=== PATIENT | male | born 1930 | race Caucasian/White ===

== ENCOUNTER 2017-03-14 19:24 | Emergency (ER) | payer OTHER ==
[~2017-03-14] VITALS: Ht 182.9 cm; Wt 115.0 kg
[~2017-03-14 19:24] MED LIST: ALFU10TA2 PO; AMB10 PO; ASCO1TAB3 PO; CETI10TA84 PO; CHLO10CA7 PO; CLOP1TAB15 PO; FLNIN NAE; ISR/30 PO; KENALOG; METO25TA3 OR; NXM/40 PO; PERCOCET 5-325M1 TAB PO; POTASSIUM CHLO PO; SYN50 PO
[2017-03-14 19:44] VITALS: TEMP 36.6; Ht 182.9 cm; Wt 115.0 kg
--- NOTE | 2017-03-14 20:09 | EMERGENCY ROOM VISIT NOTE ---
History Report prepared by Eric: Fawad Orourke Under the Supervision of: Dr. Simone Riddle M.D. First contact with patient: 19:52 Chief Complaint: URINARY SYMPTOMS Stated Complaint: INCONTINENT, GROIN PAIN, BURNING Nursing Triage Summary: patient presents with c/o urinary burning, retention, and frequency for past couple days. denies fevers . History of Present Illness The patient is an 86 year old male who presents to the Emergency Room with persistent urinary retention for the past five days. The patient has experienced occasionally dribbling of urine, with which he has experienced some burning. He denies any fevers. The patient has had a Fraser catheter before. The patient cannot recall ever seeing a Urologist. He takes Uroxatral for BPH. The patient is s/p cholecystectomy performed by Dr. Willett (General Surgeon) in [place]. Source of History: patient Onset: five days ago Position: other (urinary) Quality: other (retention) Timing: other (persistent) Associated Symptoms: + urinary symptoms (burning), No fevers Review of Systems See HPI for pertinent positives & negatives. A total of 10 systems reviewed and were otherwise negative. Past Medical & Surgical Medical Problems: (1) BPH (benign prostatic hyperplasia) Family History No pertinent family history Social History Smoking Status: Never Smoker Occupation Status: retired Current/Historical Medications Scheduled Alfuzosin HCl (Uroxatral), 10 MG PO DAILY Ascorbic Acid (Vitamin C), 1 TAB PO DAILY Cetirizine (Zyrtec), 1 TAB PO DAILY Chlordiazepoxide (Librium), 5 MG PO TID Ciprofloxacin Hcl (Cipro), 1 TAB PO BID Clopidogrel (Plavix), 75 MG PO DAILY Esomeprazole Magnesium (Nexium), 40 MG PO DAILY Glipizide (Glipizide), 10 MG PO BID Isosorbide Mononitrate (Isosorbide Mononitrate ER), 30 MG PO DAILY Levothyroxine Sodium (Levothyroxine Sodium), 150 MCG PO DAILY Metoprolol Tartrate (Lopressor) (Lopressor), 25 MG PO BID Multiple Vitamins W/ Minerals (Centrum Silver 50+Men), 1 TAB PO DAILY Olmesartan/Hctz (Benicar Hct 20/12.5), 1 TAB PO DAILY Rosuvastatin Calcium (Crestor), 1 TAB PO DAILY Sertraline (Zoloft), 100 MG PO DAILY Sitagliptin Phosphate (Januvia), 100 MG PO DAILY Sucralfate (Carafate), 1 GM PO TID Allergies Coded Allergies: Aspirin (Verified Adverse Reaction, SENSITIVE STOMACH, 12/25/09) No Known Allergies (Verified , 12/25/09) Physical Exam Vital Signs Date Time Temp Pulse Resp B/P (MAP) Pulse Ox O2 Delivery O2 Flow Rate FiO2 03/14/17 22:32 78 20 142/70 98 03/14/17 21:33 61 20 169/83 96 Room Air 03/14/17 19:44 36.6 65 20 144/86 97 Room Air Physical Exam GENERAL: Patient is a healthy-appearing well-nourished male. HEAD: Normocephalic atraumatic EYES: Ocular movements intact pupils equal and react to light OROPHARYNX mucous membranes are moist no exudates present no erythema or edema present NECK: Supple no nuchal rigidity CHEST: Good equal expansion LUNGS: Clear and equal to auscultation CARDIAC: Normal S1 and S2 ABDOMEN: Soft, no guarding. Tender in the suprapubic area. BACK: No CVA tenderness EXTREMITIES: No pain upon palpation normal muscle strength in all groups no clubbing cyanosis or edema NEURO: Patient is following commands and answering questions appropriately. Alert and oriented x3 Cranial Nerves 2-12 grossly intact. Medical Decision & Procedures Laboratory Results Test 03/14/17 20:26 03/14/17 22:33 Urine Color DK YELLOW Urine Appearance CLEAR (CLEAR) Urine pH 5.5 (4.5-7.5) Urine Specific [place] 1.019 (1.000-1.030) Urine Protein NEG (NEG) Urine Glucose (UA) NEG (NEG) Urine Ketones TRACE (NEG) Urine Occult Blood NEG (NEG) Urine Nitrite NEG (NEG) Urine Bilirubin NEG (NEG) Urine Urobilinogen NEG (NEG) Urine Leukocyte Esterase TRACE (NEG) Urine WBC (Auto) 1-5 /hpf (0-5) Urine RBC (Auto) 5-10 /hpf (0-4) Urine Hyaline Casts (Auto) 1-5 /lpf (0-5) Urine Epithelial Cells (Auto) 10-20 /lpf (0-5) Urine Bacteria (Auto) NEG (NEG) Bedside Glucose 98 mg/dl (70-99) Labs reviewed by ED physician. Medications Administered Medications (Trade) Dose Ordered Sig/Sulema Route Start Time Stop Time Status Last Admin Dose Admin Ciprofloxacin (Cipro Tab) 500 mg NOW STAT PO 03/14/17 21:40 03/14/17 21:42 DC 03/14/17 22:31 500 MG ED Course 1954: Past medical records reviewed. The patient was evaluated in room C4. A complete history and physical examination was performed. 2134: Reassessed the patient. Discussed the results and discharge instructions with him. He verbalized understanding. The patient is ready for discharge. 2139: Cipro 500 mg PO. Medical Decision There is no differential diagnosis at this time. Blood Pressure Screening: Patient was found to have an elevated blood pressure and was referred to their primary care doctor for recheck and further treatment Medication Reconciliation: I attest that I have personally reviewed the patient' s current medication list This is an 86-year-old male who presents to the emergency department with inability to urinate. At home the patient became incontinent and moved a large amount of urine however he is unable to empty his bladder here. A bladder scan was performed and a Fraser catheter placed. The patient is early on medication for his prostate. I will place him on Cipro pending urine culture results. The patient will be discharged with the Fraser in place for follow-up with urology. Patient and family were in agreement with the treatment plan. Impression Primary Impression: Symptoms of urinary tract infection Scribe Attestation The scribe's documentation has been prepared under my direction and personally reviewed by me in its entirety. I confirm that the note above accurately reflects all work, treatment, procedures, and medical decision making performed by me. Departure Information Dispostion Home / Self-Care Prescriptions Ciprofloxacin Hcl (CIPRO) 500 Mg Tab 1 TAB PO BID for 10 Days, #20 TAB Prov: Simone Riddle MD 03/14/17 Referrals Will Barber M.D., Christopher T. M.D. Forms HOME CARE DOCUMENTATION FORM, IMPORTANT VISIT INFORMATION, School Instructions, Work Instructions Patient Instructions ED Catheter Care Fraser, ED Retention Urinary Male, Hypertension Control, Leg Bag Care Nm, My [facility] Additional Instructions Follow up with DR Willett's office You were found to have an elevated blood pressure today (>120 sytolic or >90 diastolic). Per medicare guidelines, you need to follow up with this blood pressure screening with your Primary Care Physician (PCP). For a new PCP call [phone]. Culture results are usually available in approx 48 hours You have been examined and treated today on an emergency basis only. This is not a substitute for, or an effort to provide, complete comprehensive medical care. It is impossible to recognize and treat all injuries or illnesses in a single emergency department visit. It is therefore important that you follow up closely with Dr Barber. Call as soon as possible for an appointment. Thank you for your time and consideration. I look forward to speaking with you again soon. Please don't hesitate to call us if you have any questions.
[2017-03-14 20:42] LABS: URINE APPEARANCE CLEAR (CLEAR); URINE BILIRUBIN NEG (NEG); URINE COLOR DK YELLOW; URINE NITRITE NEG (NEG); URINE PH 5.5 (4.5-7.5); URINE SPECIFIC GRAVITY 1.019 (1.000-1.030); UROBILINOGEN NEG (NEG); ZZURINE CULT IF INDIC CATH NO
[2017-03-14 20:57] LABS: MANUAL MICROSCOPIC REQUIRED? NO; REVIEW REQ? NO
[2017-03-14] MEDS ORDERED: LEVO150T9 PO (21:20)
[2017-03-14] MEDS ORDERED: SERT-234 PO (21:20)
[2017-03-14] MEDS ORDERED: BNC/20125 PO (21:20)
[2017-03-14] MEDS ORDERED: CETI10TA84 PO (21:20)
[2017-03-14] MEDS ORDERED: MULT-1093 PO (21:20)
[2017-03-14] MEDS ORDERED: CRS/10 PO (21:20)
[2017-03-14] MEDS ORDERED: GLIP10TA10 PO (21:20)
[2017-03-14] MEDS ORDERED: IMDSR30 PO (21:20)
[2017-03-14] MEDS ORDERED: NXM/40 PO (21:20)
[2017-03-14] MEDS ORDERED: SUCR1TAB29 PO (21:20)
[2017-03-14] MEDS ORDERED: METO50TA16 PO (21:20)
[2017-03-14] MEDS ORDERED: CHLO5CAP19 PO (21:20)
[2017-03-14] MEDS ORDERED: ALFU1TAB37 PO (21:20)
[2017-03-14] MEDS ORDERED: ASCA500 PO (21:20)
[2017-03-14] MEDS ORDERED: CLOP1TAB15 PO (21:20)
[2017-03-14] MEDS ORDERED: SITA100T3 PO (21:20)
[2017-03-14] MEDS ORDERED: CIPROFLOXACIN 500 MG TAB PO STA (21:40)
[2017-03-14] MEDS ORDERED: CIPR-255 PO (21:42)
[2017-03-14 22:32] VITALS: BP 142/70; PULSE 78; O2SAT 98
[2017-04-01] MEDS ORDERED: PRT40 PO (08:14)
[2017-04-01] MEDS ORDERED: KFL500 PO (08:14)
== END 2017-03-14 22:40 | disposition home or self-care (01) ==
LOC: C.EDB 19:26 → C.EDC 22:40
DX: R33.9 Retention of urine, unspecified (principal); R30.0 Dysuria; N40.0 Benign prostatic hyperplasia without lower urinary tract symptoms

== ENCOUNTER → 2017-03-16 | Outpatient (CLI) | payer OTHER ==
[~2017-03-16] MED LIST changes: -ALFU10TA2 PO; +ALFU1TAB37 PO; -AMB10 PO; +ASCA500 PO; -ASCO1TAB3 PO; +BNC/20125 PO; -CHLO10CA7 PO; +CHLO5CAP19 PO; +CIPR-255 PO; +CRS/10 PO; -FLNIN NAE; +GLIP10TA10 PO; +IMDSR30 PO; -ISR/30 PO; -KENALOG; +KFL500 PO; +LEVO150T9 PO; -METO25TA3 OR; +METO50TA16 PO; +MULT-1093 PO; +NYSCR30 EXT; -PERCOCET 5-325M1 TAB PO; -POTASSIUM CHLO PO; +PRT40 PO; +ROSU5TAB9 PO; +SERT-234 PO; +SITA100T3 PO; +SUCR1TAB29 PO; -SYN50 PO
== END | disposition home or self-care (01) ==
LOC: C.LABSPEC 17:06
PROVIDERS: ATTEND Nurse Practitioner Adult Health
DX: R33.9 Retention of urine, unspecified (principal)

== ENCOUNTER → 2017-03-18 | Outpatient (CLI) | payer OTHER ==
[2017-03-18 13:59] LABS: BLOOD UREA NITROGEN 24 mg/dl (7-18); BUN/CREATININE RATIO 15.1 (10-20)
== END | disposition home or self-care (01) ==
LOC: C.LABPBG 07:58
PROVIDERS: ATTEND Internal Medicine Pulmonary Disease
DX: R33.9 Retention of urine, unspecified (principal); E11.9 Type 2 diabetes mellitus without complications; R31.0 Gross hematuria

== ENCOUNTER 2017-03-23 12:09 | Inpatient (IN) | payer OTHER ==
[~2017-03-23] VITALS: Ht 182.9 cm; Wt 114.5 kg
[~2017-03-23 12:09] MED LIST changes: -KFL500 PO; -NYSCR30 EXT; -PRT40 PO; -ROSU5TAB9 PO
[2017-03-23] MEDS ORDERED: SODIUM CHLORIDE 0.9% 500ML 500 ML IV STA (12:46)
[2017-03-23 13:09] LABS: BASO % 0.1 %; BASO ABS # 0.02 K/uL (0-0.2); COMPLETE YES; EOS % 0.3 %; HEMATOCRIT 37.6 % (42-52); IG% 0.9 %; LYMPH % 5.2 %; LYMPH ABS # 0.81 K/uL (1.2-3.4); MEAN CELL VOLUME 87.6 fL (80-100); MEAN CORPUSCULAR HEMOGLOBIN 31.2 pg (25-34); MEAN CORPUSCULAR HGB CONC 35.6 g/dl (32-36); MEAN PLATELET VOLUME 9.2 fL (7.4-10.4); MONO % 12.8 %; NEUT % 80.7 %; PLATELET COUNT 246 K/uL (130-400); RED BLOOD COUNT 4.29 M/uL (4.7-6.1); WHITE BLOOD COUNT 15.71 K/uL (4.8-10.8)
--- NOTE | 2017-03-23 13:09 | DIAGNOSTIC IMAGING REPORT ---
SINGLE VIEW CHEST CLINICAL HISTORY: Stroke. FINDINGS: An AP, portable, upright chest radiograph is compared to study dated 12/12/2009. The examination is degraded by portable technique, large body habitus, and patient rotation. The heart is mildly enlarged and there is atherosclerotic calcification of the thoracic aorta. The pulmonary vasculature is noncongested. Chronic interstitial thickening is similar to previous. The lungs and pleural spaces are clear. No pneumothorax is seen. The skeletal structures are osteopenic. Degenerative change is noted throughout the thoracic spine. IMPRESSION: Cardiomegaly with no acute cardiopulmonary abnormality. Electronically signed by: Pasquale Sewell M.D. 03/23/2017 1:07 PM Dictated Date/Time: 03/23/2017 1:06 PM
[2017-03-23 13:16] LABS: BLOOD UREA NITROGEN 26 mg/dl (7-18); BUN/CREATININE RATIO 13.1 (10-20); CALCIUM 9.7 mg/dl (8.5-10.1); CARBON DIOXIDE 25 mmol/L (21-32); CHLORIDE 96 mmol/L (98-107); GLUCOSE 165 mg/dl (70-99); MAGNESIUM 1.8 mg/dl (1.8-2.4); POTASSIUM 3.5 mmol/L (3.5-5.1); SODIUM 131 mmol/L (136-145)
[2017-03-23 13:27] LABS: CKMB/CK RATIO 0.5 (0-3.0); THYROID STIMULATING HORMONE 0.547 uIu/ml (0.300-4.500)
[2017-03-23 13:28] LABS: INR 1.1 (0.9-1.1); PARTIAL THROMBOPLASTIN RATIO 1.3
[2017-03-23 13:49] LABS: MANUAL MICROSCOPIC REQUIRED? YES; URINE APPEARANCE CLOUDY (CLEAR); URINE BILIRUBIN NEG (NEG); URINE COLOR AMBER; URINE NITRITE NEG (NEG); URINE SPECIFIC GRAVITY 1.025 (1.000-1.030); UROBILINOGEN NEG (NEG)
--- NOTE | 2017-03-23 13:58 | DIAGNOSTIC IMAGING REPORT ---
CERVICAL SPINE CT CT DOSE: 1137.00 mGycm HISTORY: Trauma. Pain. FALL, PAIN TECHNIQUE: Multiaxial CT images of the cervical spine were performed and reformatted in the sagittal and coronal plane without the use of contrast. COMPARISON: None. FINDINGS: Vertebral body stature is remarkable for several mild concavities of the vertebral endplates. These are considered old radiographically. There is significant degenerative disc change throughout the entire entire cervical region. Posterior elements are intact. There are moderate degenerative changes of the lateral facets throughout. C1-C2 complex is intact. There are degenerative changes in the anterior arch the C1-C2 articulation. IMPRESSION: Degenerative change. No acute process. Electronically signed by: Jun Arevalo M.D. 03/23/2017 1:57 PM Dictated Date/Time: 03/23/2017 1:54 PM
--- NOTE | 2017-03-23 14:02 | DIAGNOSTIC IMAGING REPORT ---
HEAD WITHOUT CONTRAST (CT) CT DOSE: 720.95 mGycm HISTORY: Stroke TECHNIQUE: Multiple axial CT images of the head were obtained without contrast. Comparison: None. Findings: No acute intracranial hemorrhage, midline shift, mass, large territorial ischemia or abnormal extra-axial collection. There is moderate cerebral atrophy with a degree of ex vacuo ventriculomegaly. Patchy periventricular and deep white matter hypodensities are present with more focal areas of low-attenuation within the basal ganglia, notably the right lentiform nucleus. The calvarium is intact. The mastoid air cells, and middle ear cavities are clear. There is mild mucosal thickening of the ethmoid air cells. There has been prior bilateral cataract repair. Impression: 1. No acute intracranial abnormality. Negative for hemorrhage or large territorial ischemia. 2. Age-related changes of atrophy, chronic microvascular ischemic changes and remote appearing basal ganglia lacunar infarctions. 3. Mild ethmoid sinus disease. Electronically signed by: Rosendo Melendrez 03/23/2017 2:01 PM Dictated Date/Time: 03/23/2017 1:56 PM
[2017-03-23] MEDS ORDERED: PIPERACILLIN/TAZOBACTAM 4.5 GM/100ML D5W IV STA (14:11)
--- NOTE | 2017-03-23 14:14 | EMERGENCY ROOM VISIT NOTE ---
History Report prepared by Eric: Lakshmi Gonsalez Under the Supervision of: Dr. Pasquale Shaver M.D. First contact with patient: 12:35 Chief Complaint: STROKE SYMPTOMS Stated Complaint: FOOT DRAGGING, SLURRED SPEECH, CONFUSION, FALL History of Present Illness The patient is an 86 year old male who presents to the Emergency Room for further evaluation of stroke-like symptoms that started 1 week ago. The patient was seen in the ED 9 days ago for being unable to void. He had a catheter placed and he was started on antibiotics for a possible infection. He followed up with Dr. Willett - Urology today, just prior to coming into the ED. The patient's catheter was replaced today but it has not drained at all yet even though water was injected into his bladder. The patient's son states that since the patient had the catheter placed he has been experiencing worsening generalized weakness as well as worsening confusion. The patient is also dragging his feet and having difficulty ambulating which are both new for him. The patient's son states that the patient seems to drag his left foot more so than his right. The patient states that he is experiencing pain at the tip of his penis which his family explains is likely secondary to an infection or irritation from the catheter. Dr. Willett evaluated the patient and ordered some cream to improve the patient's pain from his penis. The patient is also complaining of back pain. The patient's son states that the patient has been experiencing night sweats and an increased cough. The patient's states that the patient did not sleep at all last night and kept trying to get out of bed. However, whenever he tried to get out of bed he would slide out of the bed onto the floor. They think that he is experiencing left arm pain secondary to falling out of bed. The patient has diabetes and his sugars have been high recently, per the patient's son. The patient's son adds that they are concerned about the patient's kidney function because it was abnormal recently. Source of History: patient, family (son), spouse/significant other () Onset: 1 week ago Position: other (global) Quality: other (stroke-like symptoms) Timing: worsening Associated Symptoms: + cough, + back pain, + weakness (generalized) Note: worsening confusion, high blood sugars, penis pain, night sweats, left arm pain Review of Systems See HPI for pertinent positives & negatives. A total of 10 systems reviewed and were otherwise negative. Past Medical & Surgical Medical Problems: (1) BPH (benign prostatic hyperplasia) (2) Weakness Family History No pertinent family history Social History Smoking Status: Never Smoker Occupation Status: retired Current/Historical Medications Scheduled Alfuzosin HCl (Uroxatral), 10 MG PO DAILY Ascorbic Acid (Vitamin C), 1 TAB PO DAILY Cetirizine (Zyrtec), 1 TAB PO DAILY Chlordiazepoxide (Librium), 5 MG PO TID Clopidogrel (Plavix), 75 MG PO DAILY Esomeprazole Magnesium (Nexium), 40 MG PO DAILY Glipizide (Glipizide), 10 MG PO BID Isosorbide Mononitrate (Isosorbide Mononitrate ER), 30 MG PO DAILY Levothyroxine Sodium (Levothyroxine Sodium), 150 MCG PO DAILY Metoprolol Tartrate (Lopressor) (Lopressor), 25 MG PO BID Multiple Vitamins W/ Minerals (Centrum Silver 50+Men), 1 TAB PO DAILY Olmesartan/Hctz (Benicar Hct 20/12.5), 1 TAB PO DAILY Rosuvastatin Calcium (Rosuvastatin Calcium), 5 MG PO DAILY Sertraline (Zoloft), 100 MG PO DAILY Sitagliptin Phosphate (Januvia), 100 MG PO DAILY Sucralfate (Carafate), 1 GM PO TID Allergies Coded Allergies: Aspirin (Verified Adverse Reaction, Unknown, SENSITIVE STOMACH, 03/16/17) No Known Allergies (Verified , 12/25/09) Physical Exam Vital Signs Date Time Temp Pulse Resp B/P (MAP) Pulse Ox O2 Delivery O2 Flow Rate FiO2 03/23/17 13:15 78 22 121/64 94 Room Air 03/23/17 13:15 94 Room Air 03/23/17 12:32 77 03/23/17 12:12 36.7 78 20 92/51 94 Room Air Physical Exam GENERAL: Patient is in no acute distress. HEENT: No acute trauma, normocephalic atraumatic, mucous membranes moist, no nasal congestion, no scleral icterus. NECK: No stridor, no adenopathy, no meningismus, trachea is midline. LUNGS: Clear to auscultation bilaterally, no wheeze, no rhonchi, breath sounds equal. HEART: Without murmurs gallops or rubs, regular rate and rhythm. ABDOMEN: Soft, nontender, bowel sounds positive, no hernias, no peritonitis. EXTREMITIES: No cyanosis or edema, full range of motion of all the joints without pain or difficulty, no signs for acute trauma. GROIN: Erythema to penial head, Fraser catheter in place. NEUROLOGIC: Awake and alert, no facial droop or extremity drifting, no speech slur. SKIN: No rash, no jaundice, no diaphoresis. Medical Decision & Procedures ER Provider Diagnostic Interpretation: Radiology results as stated below per my review and radiologist interpretation: SINGLE VIEW CHEST FINDINGS: An AP, portable, upright chest radiograph is compared to study dated 12/12/2009. The examination is degraded by portable technique, large body habitus, and patient rotation. The heart is mildly enlarged and there is atherosclerotic calcification of the thoracic aorta. The pulmonary vasculature is noncongested. Chronic interstitial thickening is similar to previous. The lungs and pleural spaces are clear. No pneumothorax is seen. The skeletal structures are osteopenic. Degenerative change is noted throughout the thoracic spine. IMPRESSION: Cardiomegaly with no acute cardiopulmonary abnormality. Electronically signed by: Pasquale Sewell M.D. 03/23/2017 1:07 PM Dictated Date/Time: 03/23/2017 1:06 PM LEFT HUMERUS MIN 2 VIEWS ROUTINE DISCUSSION: No acute fractures or dislocations are visualized. IMPRESSION: No fractures or dislocations identified. Electronically signed by: Brayan Gabriel M.D. 03/23/2017 2:41 PM Dictated Date/Time: 03/23/2017 2:40 PM LEFT HAND MIN 3 VIEWS ROUTINE, LEFT FOREARM 2 VIEWS ROUTINE FINDINGS: Left hand: No acute fracture, malalignment, or radiopaque internal foreign body. Intercarpal and radiocarpal articulations intact. Left forearm: Radiocarpal and elbow joints congruent. No acute fracture, malalignment, or radiopaque foreign body. IMPRESSION: 1. No acute osseous injury of the left hand or forearm. Electronically signed by: Joesph Muhammad 03/23/2017 2:44 PM Dictated Date/Time: 03/23/2017 2:40 PM HEAD WITHOUT CONTRAST (CT) Findings: No acute intracranial hemorrhage, midline shift, mass, large territorial ischemia or abnormal extra-axial collection. There is moderate cerebral atrophy with a degree of ex vacuo ventriculomegaly. Patchy periventricular and deep white matter hypodensities are present with more focal areas of low-attenuation within the basal ganglia, notably the right lentiform nucleus. The calvarium is intact. The mastoid air cells, and middle ear cavities are clear. There is mild mucosal thickening of the ethmoid air cells. There has been prior bilateral cataract repair. Impression: 1. No acute intracranial abnormality. Negative for hemorrhage or large territorial ischemia. 2. Age-related changes of atrophy, chronic microvascular ischemic changes and remote appearing basal ganglia lacunar infarctions. 3. Mild ethmoid sinus disease. Electronically signed by: Rosendo Melendrez 03/23/2017 2:01 PM Dictated Date/Time: 03/23/2017 1:[address] FINDINGS: Vertebral body stature is remarkable for several mild concavities of the vertebral endplates. These are considered old radiographically. There is significant degenerative disc change throughout the entire entire cervical region. Posterior elements are intact. There are moderate degenerative changes of the lateral facets throughout. C1-C2 complex is intact. There are degenerative changes in the anterior arch the C1-C2 articulation. IMPRESSION: Degenerative change. No acute process. Electronically signed by: Jun Arevalo M.D. 03/23/2017 1:57 PM Dictated Date/Time: 03/23/2017 1:54 PM Laboratory Results 03/23/17 12:30 Red Blood Count 4.29, Mean Corpuscular Volume 87.6, Mean Corpuscular Hemoglobin 31.2, Mean Corpuscular Hemoglobin Concent 35.6, Mean Platelet Volume 9.2, Neutrophils (%) (Auto) 80.7, Lymphocytes (%) (Auto) 5.2, Monocytes (%) (Auto) 12.8, Eosinophils (%) (Auto) 0.3, Basophils (%) (Auto) 0.1, Neutrophils # (Auto ) 12.69, Lymphocytes # (Auto) 0.81, Monocytes # (Auto) 2.01, Eosinophils # (Auto ) 0.04, Basophils # (Auto) 0.02 03/23/17 12:30 Test 03/23/17 12:30 03/23/17 13:07 03/23/17 13:11 03/23/17 13:20 White Blood Count 15.71 K/uL (4.8-10.8) Red Blood Count 4.29 M/uL (4.7-6.1) Hemoglobin 13.4 g/dL (14.0-18.0) Hematocrit 37.6 % (42-52) Mean Corpuscular Volume 87.6 fL (80-100) Mean Corpuscular Hemoglobin 31.2 pg (25-34) Mean Corpuscular Hemoglobin Concent 35.6 g/dl (32-36) Platelet Count 246 K/uL (130-400) Mean Platelet Volume 9.2 fL (7.4-10.4) Neutrophils (%) (Auto) 80.7 % Lymphocytes (%) (Auto) 5.2 % Monocytes (%) (Auto) 12.8 % Eosinophils (%) (Auto) 0.3 % Basophils (%) (Auto) 0.1 % Neutrophils # (Auto) 12.69 K/uL (1.4-6.5) Lymphocytes # (Auto) 0.81 K/uL (1.2-3.4) Monocytes # (Auto) 2.01 K/uL (0.11-0.59) Eosinophils # (Auto) 0.04 K/uL (0-0.5) Basophils # (Auto) 0.02 K/uL (0-0.2) RDW Standard Deviation 38.9 fL (36.4-46.3) RDW Coefficient of Variation 12.1 % (11.5-14.5) Immature Granulocyte % (Auto) 0.9 % Immature Granulocyte # (Auto) 0.14 K/uL (0.00-0.02) Prothrombin Time 12.0 SECONDS (9.0-12.0) Prothromb Time International Ratio 1.1 (0.9-1.1) Activated Partial Thromboplast Time 33.1 SECONDS (21.0-31.0) Partial Thromboplastin Ratio 1.3 Anion Gap 10.0 mmol/L (3-11) Estimated GFR () 34.3 Estimated GFR (Non- 29.6 BUN/Creatinine Ratio 13.1 (10-20) Calcium Level 9.7 mg/dl (8.5-10.1) Magnesium Level 1.8 mg/dl (1.8-2.4) Total Creatine Kinase 131 U/L (39-308) Creatine Kinase MB 0.7 ng/ml (0.5-3.6) Creatine Kinase MB Ratio 0.5 (0-3.0) Troponin I < 0.015 ng/ml (0-0.045) Thyroid Stimulating Hormone (TSH) 0.547 uIu/ml (0.300-4.500) Free Thyroxine 1.36 ng/dl (0.80-1.60) Bedside Prothrombin Time INR 1.1 (0.9-1.1) Bedside Glucose 185 mg/dl (70-99) Lactic Acid Level 1.2 mmol/L (0.4-2.0) Urine Color KEN Urine Appearance CLOUDY (CLEAR) Urine pH 5.0 (4.5-7.5) Urine Specific [place] 1.025 (1.000-1.030) Urine Protein 3+ (NEG) Urine Glucose (UA) NEG (NEG) Urine Ketones TRACE (NEG) Urine Occult Blood 3+ (NEG) Urine Nitrite NEG (NEG) Urine Bilirubin NEG (NEG) Urine Urobilinogen NEG (NEG) Urine Leukocyte Esterase NEG (NEG) Urine RBC >30 /hpf (0-4) Urine WBC 1-5 /hpf (0-5) Urine Epithelial Cells 5-10 /lpf (0-5) Urine Calcium Oxalate Crystals PRESENT (NONE PRSENT) Urine Bacteria 1+ (NEG) Urine Hyaline Casts 5-10 /lpf (0-5) Urine Granular Casts 0-3 /lpf (0) Laboratory results reviewed by me. Medications Administered Medications (Trade) Dose Ordered Sig/Sulema Route Start Time Stop Time Status Last Admin Dose Admin Sodium Chloride 500 ml @ 999 mls/hr Q31M STAT IV 03/23/17 12:46 03/23/17 13:16 DC 03/23/17 13:10 999 MLS/HR Piperacillin Sod/ Tazobactam Sod (Zosyn Iv) 4.5 gm NOW STAT IV 03/23/17 14:11 03/23/17 14:13 DC 03/23/17 14:35 4.5 GM ECG Indication: weakness Rate (beats per minute): 77 Rhythm: sinus rhythm Findings: 1st degree AV block, no acute ischemic change, no ectopy ED Course 1240: The patient was evaluated in room B9. A complete history and physical exam was performed. 1246: Ordered Sodium Chloride 500 ml @ 999 mls/hr IV 1411: Ordered Zosyn 4.5 gm IV 1438: Discussed the patient's case with Dr. Smith of the [facility]. The patient will be evaluated for further management. 1439: Upon reexamination the patient is resting comfortably. I discussed results and treatment plan with the patient and his family. They verbalize agreement and understanding. The patient will be evaluated for further management. Medical Decision Differential diagnoses considered include dehydration, infection, UTI, pneumonia , stroke, fracture, electrolyte imbalance, anemia, MD. Medication Reconciliation: I attest that I have personally reviewed the patient' s current medication list. Blood Pressure Screening: Patient was found to have normal blood pressure on screening and does not require follow-up. There is a moderate leukocytosis, this is consistent with infection, no worrisome anemia. Renal panel testing suggests acute renal failure, no significant electrolyte abnormality requiring correction. There was no hepatitis. EKG showed a sinus rhythm, no acute ischemia. Cardiac enzyme testing times one is not consistent with acute cardiac injury. Chest x-ray does not show pneumonia or CHF. Brain CT shows no acute bleed or mass effect. C-spine CT shows no acute fracture. Left humerus, left forearm and left hand films do not show evidence for fracture. Urinalysis is suggestive of infection , urine culture and blood cultures are pending. The patient received IV saline, this seems to have improved his blood pressure. He was given IV Zosyn for antibiotic coverage. The patient presents with confusion, weakness, he has not done well since placement of his Fraser catheter. I do think he may have a urinary tract infection, this could be causing his difficulty. I don't find evidence for stroke by examination. The patient requires a stay in the hospital. I did speak to the patient and his family. The on-call hospitalist was consulted. Consults Time Called: 1431 Consulting Physician: Dr. Smith - [facility] [place] Returned Call: 1438 Discussed the patient's case with Dr. Smith of the [facility]. The patient will be evaluated for further management. Impression Primary Impression: Change in mental status Additional Impressions: Hypotension UTI (urinary tract infection) Scribe Attestation The scribe's documentation has been prepared under my direction and personally reviewed by me in its entirety. I confirm that the note above accurately reflects all work, treatment, procedures, and medical decision making performed by me. Departure Information Dispostion Being Evaluated By Hospitalist Referrals Will Barber M.D. (PCP) Patient Instructions My [facility] Health Problem Qualifiers Primary Impression: Change in mental status Altered mental status type: unspecified Qualified Codes: R41.82 - Altered mental status, unspecified Additional Impressions: Hypotension Hypotension type: unspecified hypotension type Qualified Codes: I95.9 - Hypotension, unspecified UTI (urinary tract infection) Urinary tract infection type: catheter-associated UTI Indwelling urinary catheter type: unspecified Encounter type: initial encounter Qualified Codes : T83.511A - Infection and inflammatory reaction due to indwelling urethral catheter, initial encounter; N39.0 - Urinary tract infection, site not specified
[2017-03-23 14:21] LABS: REVIEW REQ? NO
[2017-03-23 14:23] LABS: URINE RBC >30 /hpf (0-4)
[2017-03-23 14:25] LABS: URINE BACTERIA 1+ (NEG)
[2017-03-23 14:26] LABS: URINE GRANULAR CAST 0-3 /lpf (0)
[2017-03-23 14:27] LABS: ZZURINE CULT IF INDIC CATH YES
--- NOTE | 2017-03-23 14:42 | DIAGNOSTIC IMAGING REPORT ---
LEFT HUMERUS MIN 2 VIEWS ROUTINE CLINICAL HISTORY: Left humeral pain status post trauma COMPARISON: None. DISCUSSION: No acute fractures or dislocations are visualized. IMPRESSION: No fractures or dislocations identified. Electronically signed by: Brayan Gabriel M.D. 03/23/2017 2:41 PM Dictated Date/Time: 03/23/2017 2:40 PM
--- NOTE | 2017-03-23 14:45 | DIAGNOSTIC IMAGING REPORT ---
LEFT HAND MIN 3 VIEWS ROUTINE, LEFT FOREARM 2 VIEWS ROUTINE CLINICAL HISTORY: 86 year-old Male presenting with FALL, PAIN. TECHNIQUE: Frontal, oblique, and lateral views of the left hand and frontal and lateral views of the left forearm were obtained. COMPARISON: None. FINDINGS: Left hand: No acute fracture, malalignment, or radiopaque internal foreign body. Intercarpal and radiocarpal articulations intact. Left forearm: Radiocarpal and elbow joints congruent. No acute fracture, malalignment, or radiopaque foreign body. IMPRESSION: 1. No acute osseous injury of the left hand or forearm. Electronically signed by: Joesph Muhammad 03/23/2017 2:44 PM Dictated Date/Time: 03/23/2017 2:40 PM
[2017-03-23] MEDS ORDERED: ALUMINUM/MAGNESIUM/SIMETH (MAALOX MAX) 30 ML UDC PO PRN (15:45)
[2017-03-23] MEDS ORDERED: ONDANSETRON INJ 2 MG/ML 2 ML VIAL IV PRN (15:45)
[2017-03-23] MEDS ORDERED: MAGNESIUM HYDROXIDE SUSP 30 ML UDC PO PRN (15:45)
[2017-03-23] MEDS ORDERED: POLYETHYLENE (MIRALAX) 17 GM PACK PO PRN (15:45)
[2017-03-23] MEDS ORDERED: ROSU5TAB9 PO (15:47)
[2017-03-23] MEDS ORDERED: NYSCR30 EXT (15:53)
[2017-03-23] MEDS ORDERED: GLUCOSE 10 TABS/TUBE PO PRN (16:00)
[2017-03-23] MEDS ORDERED: GLUCOSE 40% GEL 15 GM TUBE PO PRN (16:00)
[2017-03-23] MEDS ORDERED: DEXTROSE 50% 50 ML SYR IV PRN (16:00)
[2017-03-23] MEDS ORDERED: GLUCAGON FOR INJ 1 MG VIAL SQ PRN (16:00)
[2017-03-23] MEDS ORDERED: PHARMACIST DISCHARGE MED REC CONSULT PRN (16:15)
[2017-03-23 17:24] VITALS: BP 147/76; PULSE 69; TEMP 36.6; O2SAT 95
[2017-03-23] MEDS: INSULIN ASPART 100 UNITS/ML 3 ML PEN SC SCH ×2 (17:25→20:45)
[2017-03-23] MEDS: NSS + 20MEQ KCL 1000ML 1,000 ML IV SCH (17:53)
[2017-03-23] MEDS: CEFTRIAXONE SOD INJ 1 GM in DEXTROSE 5% ADD-VANTAGE 50ML 50 ML IV SCH (17:55)
[2017-03-23 17:58] VITALS: BP 147/76; PULSE 69; TEMP 36.6; Ht 182.9 cm; Wt 114.5 kg
[2017-03-23] MEDS: NYSTATIN SUSP 500,000 U/5 ML UDC PO SCH ×2 (18:49→20:42)
[2017-03-23 19:48] VITALS: BP 171/83
[2017-03-23 20:05] VITALS: BP 171/83; PULSE 77; TEMP 36.7; O2SAT 95
--- NOTE | 2017-03-23 20:15 | History and Physical ---
History & Physical Date & Time of Service: Mar 23, 2017 at 19:13 Chief Complaint: Weakness Primary Care Physician: Will Barber M.D. History of Present Illness Source: patient, spouse, clinic records, hospital records This is an 86 y/o male with a history of DM II, HTN, CKD stage III, hypothyroidism, BPH, anxiety and depression, and PUD who presented to the ED on 03/23 with weakness, confusion, and pain in the penis. The patient had presented to the ED about 9 days ago with urinary retention, at which time a catheter was placed and he was given antibiotics. The patient followed up with Dr. Willett today where the catheter was replaced. The patient has been complaining of a 9/ 10 burning pain in the tip of his penis since the first catheter was placed. Patient was prescribed nystatin cream to apply to affected area today; however, the patient was not able to fill this prescription before coming to the ED. Patient's family notes that he has been having worsening weakness and confusion over the last week. The weakness seems to favor his left side. The notes that the patient has been having difficulty complaining and seems to be dragging his feet, which is new. She also notes that when he has been trying to get out of bed, he has been rolling onto the floor instead, falling on his left side. Patient has been having night sweats and a cough over the last week. The patient denies fevers, chills, chest pain, palpitations, claudication , wheezing, shortness of breath, nausea, vomiting, abdominal pain, dysuria, hematuria, urinary retention, paralysis, numbness and tingling. Past Medical/Surgical History Medical Problems: (1) BPH (benign prostatic hyperplasia) Status: Chronic DM II HTN CKD stage III Hypothyroidism Anxiety and depression PUD Family History Diabetes mellitus Hypertension Social History Smoking Status: Never Smoker Smokeless Tobacco Use: No Alcohol Use: none Drug Use: none Marital Status: Housing status: lives with significant other Occupational Status: retired Immunizations History of Influenza Vaccine: No History of Tetanus Vaccine?: No History of Pneumococcal: No History of Hepatitis B Vaccine: Unknown Multi-Drug Resistant Organisms History of MDRO: No Allergies Coded Allergies: Aspirin (Verified Adverse Reaction, Unknown, SENSITIVE STOMACH, 03/16/17) No Known Allergies (Verified , 12/25/09) Home Medications Scheduled Alfuzosin HCl (Uroxatral), 10 MG PO DAILY Ascorbic Acid (Vitamin C), 1 TAB PO DAILY Cetirizine (Zyrtec), 1 TAB PO DAILY Chlordiazepoxide (Librium), 5 MG PO TID Clopidogrel (Plavix), 75 MG PO DAILY Esomeprazole Magnesium (Nexium), 40 MG PO DAILY Glipizide (Glipizide), 10 MG PO BID Isosorbide Mononitrate (Isosorbide Mononitrate ER), 30 MG PO DAILY Levothyroxine Sodium (Levothyroxine Sodium), 150 MCG PO DAILY Metoprolol Tartrate (Lopressor) (Lopressor), 25 MG PO BID Multiple Vitamins W/ Minerals (Centrum Silver 50+Men), 1 TAB PO DAILY Nystatin (Nystatin Cream), 1 APPLN EXT BID Olmesartan/Hctz (Benicar Hct 20/12.5), 1 TAB PO DAILY Rosuvastatin Calcium (Rosuvastatin Calcium), 5 MG PO DAILY Sertraline (Zoloft), 100 MG PO DAILY Sitagliptin Phosphate (Januvia), 100 MG PO DAILY Sucralfate (Carafate), 1 GM PO TID Review of Systems Constitutional: + weakness, + fatigue, No fever, No chills, No sweats Eyes: No worsening of vision, No eye pain, No diplopia ENT: + trouble swallowing (odynophagia), No hearing loss, No sore throat Respiratory: No cough, No wheezing, No shortness of breath Cardiovascular: No chest pain, No claudication, No palpitations Abdomen: No pain, No nausea, No vomiting Musculoskeletal: No joint pain, No muscle pain, No swelling Genitourinary - Male: + urinary retention (catheter in place), + problem reported (penile pain), No hematuria Neurologic: + weakness (left side), + problem reported (confusion), No paralysis, No numbness/tingling Integumentary: No rash, No itch, No color change Physical Exam Vital Signs Date Time Temp Pulse Resp B/P (MAP) Pulse Ox O2 Delivery O2 Flow Rate FiO2 03/23/17 17:58 36.6 69 18 147/76 Room Air 03/23/17 17:24 36.6 69 18 147/76 (99) 95 Room Air 03/23/17 16:41 75 21 166/88 95 Room Air 03/23/17 15:00 36.9 72 161/68 95 Room Air 03/23/17 13:15 78 22 121/64 94 Room Air 03/23/17 13:15 94 Room Air 03/23/17 12:32 77 03/23/17 12:12 36.7 78 20 92/51 94 Room Air General appearance: +Obese. Well-developed, well-nourished, no apparent distress Head: Normocephalic, atraumatic Eyes: Normal inspection, PERRL, EOMI ENT: +Oral candidiasis. Normal ENT inspection, hearing grossly normal, pharynx normal Neck: Supple, no JVD, trachea midline Respiratory/Chest: Lungs clear to auscultation, normal breath sounds, no respiratory distress Cardiovascular: Regular rate & rhythm, no gallop, no murmur Abdomen/GI: +Hernia. Normal bowel sounds, non-tender, soft : +penis tip erythematous, TTP. Fraser in place. No drainage or penile lesions. Extremities/Musculoskeletal: Normal inspection, no calf tenderness, no pedal edema Neurological/Psych: +Disoriented x 2. Confused. LUE and LLE 4/5 strength, RUE and RLE 5/5. Sensation intact. Alert, normal mood/affect Skin: Normal color, warm/dry, no rash Diagnostics Laboratory Results Results Past 24 Hours Test 03/23/17 12:30 03/23/17 13:07 03/23/17 13:11 03/23/17 13:20 Range/Units White Blood Count 15.71 4.8-10.8 K/uL Red Blood Count 4.29 4.7-6.1 M/uL Hemoglobin 13.4 14.0-18.0 g/dL Hematocrit 37.6 42-52 % Mean Corpuscular Volume 87.6 80-100 fL Mean Corpuscular Hemoglobin 31.2 25-34 pg Mean Corpuscular Hemoglobin Concent 35.6 32-36 g/dl Platelet Count 246 130-400 K/uL Mean Platelet Volume 9.2 7.4-10.4 fL Neutrophils (%) (Auto) 80.7 % Lymphocytes (%) (Auto) 5.2 % Monocytes (%) (Auto) 12.8 % Eosinophils (%) (Auto) 0.3 % Basophils (%) (Auto) 0.1 % Neutrophils # (Auto) 12.69 1.4-6.5 K/uL Lymphocytes # (Auto) 0.81 1.2-3.4 K/uL Monocytes # (Auto) 2.01 0.11-0.59 K/uL Eosinophils # (Auto) 0.04 0-0.5 K/uL Basophils # (Auto) 0.02 0-0.2 K/uL RDW Standard Deviation 38.9 36.4-46.3 fL RDW Coefficient of Variation 12.1 11.5-14.5 % Immature Granulocyte % (Auto) 0.9 % Immature Granulocyte # (Auto) 0.14 0.00-0.02 K/uL Prothrombin Time 12.0 9.0-12.0 SECONDS Prothromb Time International Ratio 1.1 0.9-1.1 Activated Partial Thromboplast Time 33.1 21.0-31.0 SECONDS Partial Thromboplastin Ratio 1.3 Sodium Level 131 136-145 mmol/L Potassium Level 3.5 3.5-5.1 mmol/L Chloride Level 96 98-107 mmol/L Carbon Dioxide Level 25 21-32 mmol/L Anion Gap 10.0 3-11 mmol/L Blood Urea Nitrogen 26 7-18 mg/dl Creatinine 2.00 0.60-1.40 mg/dl Estimated GFR () 34.3 Estimated GFR (Non- 29.6 BUN/Creatinine Ratio 13.1 10-20 Random Glucose 165 70-99 mg/dl Calcium Level 9.7 8.5-10.1 mg/dl Magnesium Level 1.8 1.8-2.4 mg/dl Total Creatine Kinase 131 39-308 U/L Creatine Kinase MB 0.7 0.5-3.6 ng/ml Creatine Kinase MB Ratio 0.5 0-3.0 Troponin I < 0.015 0-0.045 ng/ml Thyroid Stimulating Hormone (TSH) 0.547 0.300-4.500 uIu/ml Free Thyroxine 1.36 0.80-1.60 ng/dl Bedside Prothrombin Time INR 1.1 0.9-1.1 Bedside Glucose 185 70-99 mg/dl Lactic Acid Level 1.2 0.4-2.0 mmol/L Urine Color KEN Urine Appearance CLOUDY CLEAR Urine pH 5.0 4.5-7.5 Urine Specific [place] 1.025 1.000-1.030 Urine Protein 3+ NEG Urine Glucose (UA) NEG NEG Urine Ketones TRACE NEG Urine Occult Blood 3+ NEG Urine Nitrite NEG NEG Urine Bilirubin NEG NEG Urine Urobilinogen NEG NEG Urine Leukocyte Esterase NEG NEG Urine RBC >30 0-4 /hpf Urine WBC 1-5 0-5 /hpf Urine Epithelial Cells 5-10 0-5 /lpf Urine Calcium Oxalate Crystals PRESENT NONE PRSENT Urine Bacteria 1+ NEG Urine Hyaline Casts 5-10 0-5 /lpf Urine Granular Casts 0-3 0 /lpf Test 03/23/17 17:06 Range/Units Bedside Glucose 164 70-99 mg/dl Microbiology Results 03/23/17 Blood Culture, Received Pending 03/23/17 Blood Culture, Received Pending 03/23/17 Urine Culture, Received Pending Diagnostic Radiology Reviewed the following studies and agree with interpretation as follows: Patient Name: REBECCA GELLER JR Unit Number: [id number] Dictated: 03/23/171355 Transcribed: 03/23/17 1356 JR Printed Date/Time: [~ rep prt dt]/[~ rep prt tm] [~ rep ct labl] - [~ rep ct ivnm] [facility] [address] [place] [address] Dictated: 03/23/171355 Transcribed: 03/23/17 135 JR Printed Date/Time: [~ rep prt dt]/[~ rep prt tm] [~ rep ct labl] - [~ rep ct ivnm] Patient: REBECCA GELLER Address1: [address] [facility] Rec: [id number] Address2: Acct ID: [id number] [facility] Zip: [place] [address] Date: 1930 Sex: M Room/Bed: Ref Phy: Will Barber M.D. SC: GATO Att Phy: Report #: [id number] Chrissy Phy: Will Barber M.D. Test: HWO Admit Phy: Dipper Operator: SALAZAR Interpreting Phy: Elton Melendrez D.O. Diagnosis: FOOT DRAGGING, SLURRED SPEECH, CONFUSION, FALL Ordering Phy: Pasquale Shaver M.D. Service Date: 03/23/17 Admit Date: 03/23/17 MNE: PWRSCRIBE CONF: DICTATED BY: Elton Melendrez D.O.]] CC: Pasquale Shaver M.D. Smeal, Darren M.D. Endcc: [~ rep ct add3]] HEAD WITHOUT CONTRAST (CT) CT DOSE: 720.95 mGycm HISTORY: Stroke TECHNIQUE: Multiple axial CT images of the head were obtained without contrast. Comparison: None. Findings: No acute intracranial hemorrhage, midline shift, mass, large territorial ischemia or abnormal extra-axial collection. There is moderate cerebral atrophy with a degree of ex vacuo ventriculomegaly. Patchy periventricular and deep white matter hypodensities are present with more focal areas of low-attenuation within the basal ganglia, notably the right lentiform nucleus. The calvarium is intact. The mastoid air cells, and middle ear cavities are clear. There is mild mucosal thickening of the ethmoid air cells. There has been prior bilateral cataract repair. Impression: 1. No acute intracranial abnormality. Negative for hemorrhage or large territorial ischemia. 2. Age-related changes of atrophy, chronic microvascular ischemic changes and remote appearing basal ganglia lacunar infarctions. 3. Mild ethmoid sinus disease. Electronically signed by: Rosendo Melendrez 03/23/2017 2:01 PM Dictated Date/Time: 03/23/2017 1:56 PM The status of this report is Signed. Draft = Not yet reviewed or approved by Radiologist. Signed = Reviewed and approved by Radiologist. <AttendingPhy></AttendingPhy> <FamilyPhy>Will Barber M.D.</FamilyPhy> < PrimaryPhy>Will Barber M.D.</PrimaryPhy> <UnitNumber>[id number]</UnitNumber> < VisitNumber>[id number]</VisitNumber> <PatientName>REBECCA GELLER JR</ PatientName> <DateOfBirth>1930</DateOfBirth> <Location>[facility]</Location> < ServiceDate>03/23/17</ServiceDate> <MNE>ESINDI</MNE> <OrderingPhy>Pasquale Shaver M.D.</OrderingPhy> <OrderingPhyMNE>f rep ord dr davies</OrderingPhyMNE> < DictatingPhyMNE>f rep dict dr davies</DictatingPhyMNE> <CCListMNE>f rep ct mne</ CCListMNE> <AdmittingPhyMNE>f pt admit dr davies</AdmittingPhyMNE> <AttendingPhyMNE >f pt attend dr davies</AttendingPhyMNE> <ConsultingPhyMNE>f pt consult dr davies</ConsultingPhyMNE> <FamilyPhyMNE>f pt fam dr davies</FamilyPhyMNE> <OtherPhyMNE>f pt other dr davies</OtherPhyMNE> < PrimaryPhyMNE>f pt prim care dr davies</PrimaryPhyMNE> <ReferringPhyMNE>f pt referring dr davies</ReferringPhyMNE> Patient Name: REBECCA GELLER Unit Number: [id number] Dictated: 03/23/171353 Transcribed: 03/23/17 135 MS Printed Date/Time: [~ rep prt dt]/[~ rep prt tm] [~ rep ct labl] - [~ rep ct ivnm] [facility] [address] Radiology Department [place] [id number] Dictated: 03/23/171353 Transcribed: 03/23/17 1354 MS Printed Date/Time: [~ rep prt dt]/[~ rep prt tm] [~ rep ct labl] - [~ rep ct ivnm] Patient: REBECCA GELLER Address1: [address] [facility] Rec: [id number] Address2: Acct ID: [id number] [facility] Zip: [place] [address] Date: 1930 Sex: M Room/Bed: Ref Phy: Will Barber M.D. SC: GATO Att Phy: Report #: [id number] Chrissy Phy: Will Barber M.D. Test: CSWO Admit Phy: Dipper Operator: SALAZAR Interpreting Phy: Jun Arevalo M.D. Diagnosis: FOOT DRAGGING, SLURRED SPEECH , CONFUSION, FALL Ordering Phy: Pasquale Shaver M.D. Service Date: 03/23/17 Admit Date: 03/23/17 MNE: KSENIA CONF: DICTATED BY: Jun Arevalo M.D.]] CC: Pasquale Shaver M.D. Smeal, Darren M.D. Endcc: [~ rep ct add3]] CERVICAL SPINE CT CT DOSE: 1137.00 mGycm HISTORY: Trauma. Pain. FALL, PAIN TECHNIQUE: Multiaxial CT images of the cervical spine were performed and reformatted in the sagittal and coronal plane without the use of contrast. COMPARISON: None. FINDINGS: Vertebral body stature is remarkable for several mild concavities of the vertebral endplates. These are considered old radiographically. There is significant degenerative disc change throughout the entire entire cervical region. Posterior elements are intact. There are moderate degenerative changes of the lateral facets throughout. C1-C2 complex is intact. There are degenerative changes in the anterior arch the C1-C2 articulation. IMPRESSION: Degenerative change. No acute process. Electronically signed by: Jun Arevalo M.D. 03/23/2017 1:57 PM Dictated Date/Time: 03/23/2017 1:54 PM The status of this report is Signed. Draft = Not yet reviewed or approved by Radiologist. Signed = Reviewed and approved by Radiologist. <AttendingPhy></AttendingPhy> <FamilyPhy>Will Barber M.D.</FamilyPhy> < PrimaryPhy>Will Barber M.D.</PrimaryPhy> <UnitNumber>[id number]</UnitNumber> < VisitNumber>[id number]</VisitNumber> <PatientName>REBECCA GELLER JR</ PatientName> <DateOfBirth>1930</DateOfBirth> <Location>[facility]</Location> < ServiceDate>03/23/17</ServiceDate> <MNE>ESINDI</MNE> <OrderingPhy>Pasquale Shaver M.D.</OrderingPhy> <OrderingPhyMNE>f rep ord dr davies</OrderingPhyMNE> < DictatingPhyMNE>f rep dict dr davies</DictatingPhyMNE> <CCListMNE>f rep ct mne</ CCListMNE> <AdmittingPhyMNE>f pt admit dr davies</AdmittingPhyMNE> <AttendingPhyMNE >f pt attend dr davies</AttendingPhyMNE> <ConsultingPhyMNE>f pt consult dr davies</ConsultingPhyMNE> <FamilyPhyMNE>f pt fam dr davies</FamilyPhyMNE> <OtherPhyMNE>f pt other dr davies</OtherPhyMNE> < PrimaryPhyMNE>f pt prim care dr davies</PrimaryPhyMNE> <ReferringPhyMNE>f pt referring dr davies</ReferringPhyMNE> Patient Name: REBECCA GELLER JR Unit Number: [id number] Dictated: 03/23/171305 Transcribed: 03/23/171305 EV Printed Date/Time: [~ rep prt dt]/[~ rep prt tm] [~ rep ct labl] - [~ rep ct ivnm] [facility] [address] [place] [address] Dictated: 03/23/171305 Transcribed: 03/23/17 130 EV Printed Date/Time: [~ rep prt dt]/[~ rep prt tm] [~ rep ct labl] - [~ rep ct ivnm] Patient: REBECCA GELLER JR Address1: [address] [facility] Rec: [id number] Address2: Acct ID: [id number] [facility] Zip: [place] [address] Date: 1930 Sex: M Room/Bed: Ref Phy: Will Barber M.D. SC: GATO Att Phy: Report #: [id number] Chrissy Phy: Will Barber M.D. Test: CXR1P Admit Phy: Dipper Operator: CAMERON Interpreting Phy: Pasquale Sewell M.D. Diagnosis: FOOT DRAGGING, SLURRED SPEECH, CONFUSION, FALL Ordering Phy: Pasquale Shaver M.D. Service Date: 03/23/17 Admit Date: 03/23/17 MNE: PWRSCRIBE CONF: DICTATED BY: Pasquale Sewell M.D.]] CC: Pasquale Shaver M.D. Smeal, Darren M.D. Endcc: [~ rep ct add3]] SINGLE VIEW CHEST CLINICAL HISTORY: Stroke. FINDINGS: An AP, portable, upright chest radiograph is compared to study dated 12/12/2009. The examination is degraded by portable technique, large body habitus, and patient rotation. The heart is mildly enlarged and there is atherosclerotic calcification of the thoracic aorta. The pulmonary vasculature is noncongested. Chronic interstitial thickening is similar to previous. The lungs and pleural spaces are clear. No pneumothorax is seen. The skeletal structures are osteopenic. Degenerative change is noted throughout the thoracic spine. IMPRESSION: Cardiomegaly with no acute cardiopulmonary abnormality. Electronically signed by: Pasquale Sewell M.D. 03/23/2017 1:07 PM Dictated Date/Time: 03/23/2017 1:06 PM The status of this report is Signed. Draft = Not yet reviewed or approved by Radiologist. Signed = Reviewed and approved by Radiologist. <AttendingPhy></AttendingPhy> <FamilyPhy>Will Barber M.D.</FamilyPhy> < PrimaryPhy>Will Barber M.D.</PrimaryPhy> <UnitNumber>[id number]</UnitNumber> < VisitNumber>[id number]</VisitNumber> <PatientName>REBECCA GELLER JR</ PatientName> <DateOfBirth>1930</DateOfBirth> <Location>[facility]</Location> < ServiceDate>03/23/17</ServiceDate> <MNE>ESINDI</MNE> <OrderingPhy>Pasquale Shaver M.D.</OrderingPhy> <OrderingPhyMNE>f rep ord dr davies</OrderingPhyMNE> < DictatingPhyMNE>f rep dict dr davies</DictatingPhyMNE> <CCListMNE>f rep ct mne</ CCListMNE> <AdmittingPhyMNE>f pt admit dr davies</AdmittingPhyMNE> <AttendingPhyMNE >f pt attend dr davies</AttendingPhyMNE> <ConsultingPhyMNE>f pt consult dr davies</ConsultingPhyMNE> <FamilyPhyMNE>f pt fam dr davies</FamilyPhyMNE> <OtherPhyMNE>f pt other dr davies</OtherPhyMNE> < PrimaryPhyMNE>f pt prim care dr davies</PrimaryPhyMNE> <ReferringPhyMNE>f pt referring dr davies</ReferringPhyMNE> Patient Name: REBECCA GELLER JR Unit Number: [id number] Dictated: 03/23/171439 Transcribed: 03/23/171439 ARG Printed Date/Time: [~ rep prt dt]/[~ rep prt tm] [~ rep ct labl] - [~ rep ct ivnm] [facility] Radiology Department [place] [id number] Dictated: 03/23/171439 Transcribed: 03/23/171439 ARG Printed Date/Time: [~ rep prt dt]/[~ rep prt tm] [~ rep ct labl] - [~ rep ct ivnm] Patient: REBECCA GELLER JR Address1: [address] [facility] Rec: [id number] Address2: Acct ID: [id number] [facility] Zip: [place] [address] Date: 1930 Sex: M Room/Bed: Ref Phy: Will Barber M.D. SC: GATO Att Phy: Report #: [id number] Chrissy Phy: Will Barber M.D. Test: HM Admit Phy: Dipper Operator: JESSIE Interpreting Phy: Brayan Gabriel M.D. Diagnosis: FOOT DRAGGING, SLURRED SPEECH , CONFUSION, FALL Ordering Phy: Pasquale Shaver M.D. Service Date: 03/23/17 Admit Date: 03/23/17 MNE: PWRSCRIBE CONF: DICTATED BY: Brayan Gabriel M.D.]] CC: Pasquale Shaver M.D. Smeal, Darren M.D. Endcc: [~ rep ct add3]] LEFT HUMERUS MIN 2 VIEWS ROUTINE CLINICAL HISTORY: Left humeral pain status post trauma COMPARISON: None. DISCUSSION: No acute fractures or dislocations are visualized. IMPRESSION: No fractures or dislocations identified. Electronically signed by: Brayan Gabriel M.D. 03/23/2017 2:41 PM Dictated Date/Time: 03/23/2017 2:40 PM The status of this report is Signed. Draft = Not yet reviewed or approved by Radiologist. Signed = Reviewed and approved by Radiologist. <AttendingPhy></AttendingPhy> <FamilyPhy>Will Barber M.D.</FamilyPhy> < PrimaryPhy>Will Barber M.D.</PrimaryPhy> <UnitNumber>[id number]</UnitNumber> < VisitNumber>[id number]</VisitNumber> <PatientName>REBECCA GELLER JR</ PatientName> <DateOfBirth>1930</DateOfBirth> <Location>[facility]</Location> < ServiceDate>03/23/17</ServiceDate> <MNE>ESINDI</MNE> <OrderingPhy>Pasquale Shaver M.D.</OrderingPhy> <OrderingPhyMNE>f rep ord dr davies</OrderingPhyMNE> < DictatingPhyMNE>f rep dict dr davies</DictatingPhyMNE> <CCListMNE>f rep ct mne</ CCListMNE> <AdmittingPhyMNE>f pt admit dr davies</AdmittingPhyMNE> <AttendingPhyMNE >f pt attend dr davies</AttendingPhyMNE> <ConsultingPhyMNE>f pt consult dr davies</ConsultingPhyMNE> <FamilyPhyMNE>f pt fam dr davies</FamilyPhyMNE> <OtherPhyMNE>f pt other dr davies</OtherPhyMNE> < PrimaryPhyMNE>f pt prim care dr davies</PrimaryPhyMNE> <ReferringPhyMNE>f pt referring dr davies</ReferringPhyMNE> Patient Name: REBECCA GELLER JR Unit Number: [id number] Dictated: 03/23/17 144 Transcribed: 03/23/17 144 PBS Printed Date/Time: [~ rep prt dt]/[~ rep prt tm] [~ rep ct labl] - [~ rep ct ivnm] [facility] [place] [address] Dictated: 03/23/17 1440 Transcribed: 03/23/17 144 PBS Printed Date/Time: [~ rep prt dt]/[~ rep prt tm] [~ rep ct labl] - [~ rep ct ivnm] Patient: REBECCA GELLER JR Address1: [address] [facility] Rec: [id number] Address2: Acct ID: [id number] [facility] Zip: [place] [address] Date: 1930 Sex: M Room/Bed: Ref Phy: Will Barber M.D. SC: GATO Att Phy: Report #: [id number] Chrissy Phy: Will Barber M.D. Test: FA Admit Phy: Dipper Operator: JESSIE Interpreting Phy: Joesph Muhammad MD Diagnosis: FOOT DRAGGING, SLURRED SPEECH , CONFUSION, FALL Ordering Phy: Pasqaule Shaver M.D. Service Date: 03/23/17 Admit Date: 03/23/17 MNE: PWRSCRIBE CONF: DICTATED BY: Joesph Muhammad MD]] CC: Pasquale Shaver M.D. Smeal, Darren M.D. Endcc: [~ rep ct add3]] LEFT HAND MIN 3 VIEWS ROUTINE, LEFT FOREARM 2 VIEWS ROUTINE CLINICAL HISTORY: 86 year-old Male presenting with FALL, PAIN. TECHNIQUE: Frontal, oblique, and lateral views of the left hand and frontal and lateral views of the left forearm were obtained. COMPARISON: None. FINDINGS: Left hand: No acute fracture, malalignment, or radiopaque internal foreign body. Intercarpal and radiocarpal articulations intact. Left forearm: Radiocarpal and elbow joints congruent. No acute fracture, malalignment, or radiopaque foreign body. IMPRESSION: 1. No acute osseous injury of the left hand or forearm. Electronically signed by: Joesph Muhammad 03/23/2017 2:44 PM Dictated Date/Time: 03/23/2017 2:40 PM The status of this report is Signed. Draft = Not yet reviewed or approved by Radiologist. Signed = Reviewed and approved by Radiologist. <AttendingPhy></AttendingPhy> <FamilyPhy>Will Barber M.D.</FamilyPhy> < PrimaryPhy>Will Barber M.D.</PrimaryPhy> <UnitNumber>[id number]</UnitNumber> < VisitNumber>[id number]</VisitNumber> <PatientName>REBECCA GELLER </ PatientName> <DateOfBirth>1930</DateOfBirth> <Location>[facility]</Location> < ServiceDate>03/23/17</ServiceDate> <MNE>ESINDI</MNE> <OrderingPhy>Pasquale Shaver M.D.</OrderingPhy> <OrderingPhyMNE>f rep ord dr davies</OrderingPhyMNE> < DictatingPhyMNE>f rep dict dr davies</DictatingPhyMNE> <CCListMNE>f rep ct mne</ CCListMNE> <AdmittingPhyMNE>f pt admit dr davies</AdmittingPhyMNE> <AttendingPhyMNE >f pt attend dr davies</AttendingPhyMNE> <ConsultingPhyMNE>f pt consult dr davies</ConsultingPhyMNE> <FamilyPhyMNE>f pt fam dr davies</FamilyPhyMNE> <OtherPhyMNE>f pt other dr davies</OtherPhyMNE> < PrimaryPhyMNE>f pt prim care dr davies</PrimaryPhyMNE> <ReferringPhyMNE>f pt referring dr davies</ReferringPhyMNE> EKG Reviewed EKG and agree with interpretation as follows: 77 bpm, sinus rhythm, 1st degree AV block Impression Assessment and Plan 86 y/o male with a history of DM II, HTN, HLD, CKD stage III, hypothyroidism, BPH, anxiety and depression, and PUD who presented to the ED on 03/23 with weakness, confusion, and pain in the penis. Pt originally hypotensive on arrival which resolved after receiving a 500 cc fluid bolus. Pt afebrile, and VSS. WBC 15.71. Creatinine elevated above baseline at 2.00. Head CT, C-spine CT, CXR, humerus x-ray, hand/forearm x-ray all negative. Altered mental status, left sided weakness, concern for CVA -Admit to telemetry -MRI brain without contrast -MRA head and neck -Echo -Fasting lipid panel -HgbA1c -Continue Plavix, statin, beta zainab -Stroke protocol, neuro checks -PT/OT ordered Sepsis likely secondary to UTI in setting of Fraser catheter, h/o urinary retention, penis pain and erythema -Hypotension resolved with fluid bolus -IVF with NSS + 20 mEq KCl at 125 cc/hr -Lactic acid WNL -Urine and blood cultures pending -Empiric Rocephin 1 gm IV qd -Nystatin cream to penis continued -Urology consulted, appreciate recs. Pt saw Dr. Brennon QUEZADA on CKD stage III--only other recorded creatinine at 1.6 -Creatinine 2.00 on arrival -IVF as above -Hold Benicar Diabetes mellitus type 2--unknown last HgbA1c -Hold glipizide and Januvia -Insulin sliding scale -Check BSGs q ac and qhs -Check HgbA1c HTN--stable now after fluid bolus -Continue Lopressor 25 mg PO BID with hold parameters -Benicar held due to DAMIEN HLD -Continue Crestor 5 mg PO qd Hypothyroidism -Continue Synthroid 150 mcg PO qd BPH -Continue alfuzosin 10 mg PO qd Anxiety and depression -Continue Zoloft 100 mg PO qd and Librium 5 mg PO qhs DVT prophylaxis -Heparin 5000 units SC q8h -ZEB biggs and GABRIELAs Code Status -Level I, FULL RESUSCITATION STATUS Advanced Directives Existing Living Will: No Existing Power of Terrazzo Mechanic: No VTE Prophylaxis VTE Risk Assessment Done? 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 HEENT--PERRL, EOMI, mucous membranes and oropharynx dry. Neck--supple, no JVD or bruits, thyroid normal, trachea midline, no adenopathy. Heart--normal S1 and S2, no extra beats, no murmurs, rubs or gallops. Lungs--clear bilaterally with decreased breath sounds throughout, no respiratory distress, no accessory muscle use. Abdomen--normal bowel sounds and soft, nontender and nondistended, no hernias or masses, no organomegaly. Extremities--no cyanosis, clubbing or edema. There are good distal pulses b/l. Dermatologic--normal skin turgor, normal color, warm and dry, no abnormal lymph nodes, no rash. Neurologic--left sided weakness. Rheumatologic--normal range of motion, nontender, muscles and joints. Psychiatric--normal affect. Assessment and Plan: 1. CVA/left sided weakness/altered mental status--follow CVA without TPA protocol. The patient will be admitted to the telemetry unit for serial cardiac enzymes, cardiac rhythm monitoring and a 2-D echocardiogram with Dopplers. Order MRI brain combination, MRA head without contrast, MRA neck combo. Order a fasting lipid panel, hemoglobin A1c. Continue Plavix, metoprolol and present statin. Consults for PT, OT, speech therapy, neurology, director social welfare. Patient likely the patient has a metabolic encephalopathy secondary to UTI and sepsis.. Placed on ceftriaxone 1 g IV daily. Hydration with IV fluids, consult with urology Dr. Willett.
[2017-03-23] MEDS: NYSTATIN CR 15 GM TUBE EXT SCH (20:42)
[2017-03-23] MEDS: CHLORDIAZEPOXIDE 5 MG CAP PO SCH (20:43)
[2017-03-23] MEDS: METOPROLOL TARTRATE 25 MG TAB PO SCH (20:44)
[2017-03-23] MEDS: SUCRALFATE 1 GM TAB PO SCH (20:44)
[2017-03-23] MEDS: HEPARIN SOD 5000 UNIT/0.5 ML CARP SQ SCH (20:47)
[2017-03-23] MEDS: ACETAMINOPHEN 325 MG TAB PO PRN (23:37)
[2017-03-23 23:44] VITALS: BP 178/91; PULSE 74; TEMP 37; O2SAT 96
[2017-03-24] VITALS (7 sets, daily range): BP systolic 141–191; BP diastolic 72–83; PULSE 62–76; TEMP 36.6–37.3; O2SAT 94–98
[2017-03-24] MEDS ORDERED: NURSING VERBAL MED ORDER ONE (01:00)
[2017-03-24] MEDS: NSS + 20MEQ KCL 1000ML 1,000 ML IV SCH ×3 (01:12→16:36)
[2017-03-24] MEDS ORDERED: MoRPHine SULFATE 2 MG/ML CARP IV ONE (01:15)
[2017-03-24] MEDS: LEVOTHYROXINE 150 MCG TAB PO SCH (05:42)
[2017-03-24] MEDS: HEPARIN SOD 5000 UNIT/0.5 ML CARP SQ SCH ×3 (05:44→22:39)
[2017-03-24 06:22] LABS: BASO % 0.2 %; BASO ABS # 0.03 K/uL (0-0.2); COMPLETE YES; EOS % 1.1 %; HEMATOCRIT 35.8 % (42-52); IG% 0.8 %; LYMPH % 13.3 %; LYMPH ABS # 1.69 K/uL (1.2-3.4); MEAN CELL VOLUME 87.1 fL (80-100); MEAN CORPUSCULAR HEMOGLOBIN 30.2 pg (25-34); MEAN CORPUSCULAR HGB CONC 34.6 g/dl (32-36); MEAN PLATELET VOLUME 9.1 fL (7.4-10.4); MONO % 11.3 %; NEUT % 73.3 %; PLATELET COUNT 223 K/uL (130-400); RED BLOOD COUNT 4.11 M/uL (4.7-6.1); WHITE BLOOD COUNT 12.72 K/uL (4.8-10.8)
[2017-03-24 06:37] LABS: ESTIMATED AVERAGE GLUCOSE 171 mg/dl; HA1C FLAG Normal (Normal)
[2017-03-24 06:46] LABS: BLOOD UREA NITROGEN 23 mg/dl (7-18); BUN/CREATININE RATIO 17.4 (10-20); CALCIUM 9.5 mg/dl (8.5-10.1); CARBON DIOXIDE 23 mmol/L (21-32); CHLORIDE 102 mmol/L (98-107); CHOLESTEROL 130 mg/dl (0-200); GLUCOSE 116 mg/dl (70-99); HDL CHOLESTEROL 43 mg/dl; LDL CHOLESTEROL CALCULATED 65 mg/dl; POTASSIUM 3.4 mmol/L (3.5-5.1); SODIUM 135 mmol/L (136-145); TRIGLYCERIDES 108 mg/dl (0-150); VERY LOW DENSITY LIPOPROT CALC 22 mg/dl
[2017-03-24] MEDS: PANTOprazole SOD 40 MG TAB PO SCH (07:56)
[2017-03-24] MEDS: METOPROLOL TARTRATE 25 MG TAB PO SCH ×2 (07:56→19:41)
[2017-03-24] MEDS: SUCRALFATE 1 GM TAB PO SCH ×3 (07:56→19:41)
[2017-03-24] MEDS: NYSTATIN SUSP 500,000 U/5 ML UDC PO SCH ×4 (07:56→19:40)
[2017-03-24] MEDS: ISOSORBIDE MONONITRATE 30 MG TABCR PO SCH (07:57)
[2017-03-24] MEDS: SERTRALINE HCL 100 MG TAB PO SCH (07:57)
[2017-03-24] MEDS: ROSUVASTATIN CALCIUM 5 MG TAB PO SCH (07:57)
[2017-03-24] MEDS: CEROVITE ADV FORMULA TAB PO SCH (07:57)
[2017-03-24] MEDS: CLOPIDOGREL BISULFATE 75 MG TAB PO SCH (07:57)
[2017-03-24] MEDS: ALFUZosin TAB 10 MG TAB PO SCH (07:57)
[2017-03-24] MEDS: NYSTATIN CR 15 GM TUBE EXT SCH ×2 (07:58→19:40)
[2017-03-24] MEDS ORDERED: OPTIRAY 320 IV PRN (08:00)
--- NOTE | 2017-03-24 08:07 | Urology Consultation ---
History General Date of Service: Mar 24, 2017. Chief Complaint: urinary retention, penile swelling Primary Care Physician: Will Barber M.D. Pt seen a urologist before?: Yes ([facility]) If yes, why?: urinary retention History of Present Illness 86 yo male admitted for increasing weakness and ARF. consulted for urinary retention and penile swelling. The pt was seen by myself in the office last week of UR. Attempted TOV by our office yesterday, but the pt failed, and hays catheter was replaced. Pt c/o penile swelling at that time. Assessed by Dr. Willett, and Nystatin cream prescribed for balanitis. The pt's family then brought him to the hospital yesterday for increasing weakness. Cr on admission noted to be 2.0. Cr was previously 1.6 last week. Cr now improved to 1.3 this morning with hydration. UC&S from last week noted to be negative. Cytology negative for high grade cancer as well. The pt was previously on Uroxatral. Remains on that now. Laboratory Last 24 Hours Test 03/23/17 12:30 03/23/17 13:07 03/23/17 13:11 03/23/17 13:20 White Blood Count 15.71 K/uL Red Blood Count 4.29 M/uL Hemoglobin 13.4 g/dL Hematocrit 37.6 % Mean Corpuscular Volume 87.6 fL Mean Corpuscular Hemoglobin 31.2 pg Mean Corpuscular Hemoglobin Concent 35.6 g/dl Platelet Count 246 K/uL Mean Platelet Volume 9.2 fL Neutrophils (%) (Auto) 80.7 % Lymphocytes (%) (Auto) 5.2 % Monocytes (%) (Auto) 12.8 % Eosinophils (%) (Auto) 0.3 % Basophils (%) (Auto) 0.1 % Neutrophils # (Auto) 12.69 K/uL Lymphocytes # (Auto) 0.81 K/uL Monocytes # (Auto) 2.01 K/uL Eosinophils # (Auto) 0.04 K/uL Basophils # (Auto) 0.02 K/uL RDW Standard Deviation 38.9 fL RDW Coefficient of Variation 12.1 % Immature Granulocyte % (Auto) 0.9 % Immature Granulocyte # (Auto) 0.14 K/uL Prothrombin Time 12.0 SECONDS Prothromb Time International Ratio 1.1 Activated Partial Thromboplast Time 33.1 SECONDS Partial Thromboplastin Ratio 1.3 Sodium Level 131 mmol/L Potassium Level 3.5 mmol/L Chloride Level 96 mmol/L Carbon Dioxide Level 25 mmol/L Anion Gap 10.0 mmol/L Blood Urea Nitrogen 26 mg/dl Creatinine 2.00 mg/dl Estimated GFR () 34.3 Estimated GFR (Non- 29.6 BUN/Creatinine Ratio 13.1 Random Glucose 165 mg/dl Estimated Average Glucose 171 mg/dl Hemoglobin A1c 7.6 % Calcium Level 9.7 mg/dl Magnesium Level 1.8 mg/dl Total Creatine Kinase 131 U/L Creatine Kinase MB 0.7 ng/ml Creatine Kinase MB Ratio 0.5 Troponin I < 0.015 ng/ml Thyroid Stimulating Hormone (TSH) 0.547 uIu/ml Free Thyroxine 1.36 ng/dl Bedside Prothrombin Time INR 1.1 Bedside Glucose 185 mg/dl Lactic Acid Level 1.2 mmol/L Urine Color KEN Urine Appearance CLOUDY Urine pH 5.0 Urine Specific [place] 1.025 Urine Protein 3+ Urine Glucose (UA) NEG Urine Ketones TRACE Urine Occult Blood 3+ Urine Nitrite NEG Urine Bilirubin NEG Urine Urobilinogen NEG Urine Leukocyte Esterase NEG Urine RBC >30 /hpf Urine WBC 1-5 /hpf Urine Epithelial Cells 5-10 /lpf Urine Calcium Oxalate Crystals PRESENT Urine Bacteria 1+ Urine Hyaline Casts 5-10 /lpf Urine Granular Casts 0-3 /lpf Test 03/23/17 17:06 03/23/17 20:45 03/24/17 05:47 Bedside Glucose 164 mg/dl 164 mg/dl White Blood Count 12.72 K/uL Red Blood Count 4.11 M/uL Hemoglobin 12.4 g/dL Hematocrit 35.8 % Mean Corpuscular Volume 87.1 fL Mean Corpuscular Hemoglobin 30.2 pg Mean Corpuscular Hemoglobin Concent 34.6 g/dl Platelet Count 223 K/uL Mean Platelet Volume 9.1 fL Neutrophils (%) (Auto) 73.3 % Lymphocytes (%) (Auto) 13.3 % Monocytes (%) (Auto) 11.3 % Eosinophils (%) (Auto) 1.1 % Basophils (%) (Auto) 0.2 % Neutrophils # (Auto) 9.32 K/uL Lymphocytes # (Auto) 1.69 K/uL Monocytes # (Auto) 1.44 K/uL Eosinophils # (Auto) 0.14 K/uL Basophils # (Auto) 0.03 K/uL RDW Standard Deviation 38.6 fL RDW Coefficient of Variation 12.0 % Immature Granulocyte % (Auto) 0.8 % Immature Granulocyte # (Auto) 0.10 K/uL Sodium Level 135 mmol/L Potassium Level 3.4 mmol/L Chloride Level 102 mmol/L Carbon Dioxide Level 23 mmol/L Anion Gap 10.0 mmol/L Blood Urea Nitrogen 23 mg/dl Creatinine 1.30 mg/dl Estimated GFR () 57.7 Estimated GFR (Non- 49.8 BUN/Creatinine Ratio 17.4 Random Glucose 116 mg/dl Calcium Level 9.5 mg/dl Triglycerides Level 108 mg/dl Cholesterol Level 130 mg/dl HDL Cholesterol 43 mg/dl LDL Cholesterol, Calculated 65 mg/dl VLDL Cholesterol, Calculated 22 mg/dl Cholesterol/HDL Ratio 3.0 Problem List Medical Problems: (1) Change in mental status Status: Acute (2) Hypotension Status: Acute (3) Symptoms of urinary tract infection Status: Acute (4) UTI (urinary tract infection) Status: Acute Past History anxiety, BPH, depression, diabetes, hypertension, hypothyroidism, other (CKD stage III, PUD) Past Surgical History: cholecystectomy, orthopedic surgery (Rotator cuff repair , knee surgery) Family History Diabetes mellitus Hypertension Social History Hx Tobacco Use In Past Year?: No Smoking: non-smoker Alcohol: never Drug use: none Marital status: Housing status: lives with significant other Occupation status: retired Immunizations History of Influenza Vaccine: No History of Tetanus Vaccine?: No History of Pneumococcal: No History of Hepatitis B Vaccine: Unknown History of MDRO No Allergies Coded Allergies: Aspirin (Verified Adverse Reaction, Unknown, SENSITIVE STOMACH, 03/16/17) No Known Allergies (Verified , 12/25/09) Medications Home Medications: Home Meds and Scripts Medications Dose Route/Sig Max Daily Dose Days Date Category Dose Instructions Nystatin Cream (Nystatin) 90 Appln/30 Gm Cr 1 Appln EXT BID 03/23/17 Reported APPLY TO AFFECTED AREA BID Rosuvastatin Calcium 5 Mg Tab 5 Mg PO DAILY 03/23/17 Reported Glipizide 10 Mg Tab 10 Mg PO BID 03/14/17 Reported Nexium (Esomeprazole Magnesium) 40 Mg Capcr 40 Mg PO DAILY 03/14/17 Reported Benicar Hct 20/12.5 (Olmesartan/HCTZ) Tab 1 Tab PO DAILY 03/14/17 Reported Isosorbide Mononitrate ER (Isosorbide Mononitrate) 30 Mg Tabcr 30 Mg PO DAILY 03/14/17 Reported Lopressor (Metoprolol Tartrate) 50 Mg Tab 25 Mg PO BID 03/14/17 Reported 1/2 OF A 50 MG TABLET TWICE DAILY. Zoloft (Sertraline HCl) 100 Mg Tab 100 Mg PO DAILY 03/14/17 Reported Carafate (Sucralfate) 1 Gm Tab 1 Gm PO TID 03/14/17 Reported MEALS Uroxatral (Alfuzosin HCl) 10 Mg Tab 10 Mg PO DAILY 03/14/17 Reported Levothyroxine Sodium 150 Mcg Tab 150 Mcg PO DAILY 03/14/17 Reported Librium (Chlordiazepoxide) 5 Mg Cap 5 Mg PO TID 03/14/17 Reported PATIENT'S SAYS HE ONLY TAKES THIS ONCE A DAY, BUT IS SUPPOSED TO TAKE IT 3 TIMES DAILY. Zyrtec (Cetirizine HCl) Unknown Strength Tab 1 Tab PO DAILY 03/14/17 Reported Januvia (Sitagliptin Phosphate) 100 Mg Tab 100 Mg PO DAILY 03/14/17 Reported Plavix (Clopidogrel Bisulfate) 75 Mg Tab 75 Mg PO DAILY 03/14/17 Reported Centrum Silver 50+Men (Multiple Vitamins W/ Minerals) 1 Tab Tab 1 Tab PO DAILY 03/14/17 Reported CENTRUM SILVER Vitamin C (Ascorbic Acid) Unknown Strength Tab 1 Tab PO DAILY 03/14/17 Reported Inpatient Medications: Current Inpatient Medications Medications (Trade) Dose Ordered Sig/Sulema Route Start Time Stop Time Status Last Admin Dose Admin Heparin Sodium (Porcine) (Heparin Sq 5000 Unit/0.5ml) 5,000 unit Q8 SQ 03/23/17 22:00 04/22/17 21:59 03/24/17 05:44 5,000 UNIT Potassium Chloride/Sodium Chloride 1,000 ml @ 125 mls/hr Q8H IV 03/23/17 17:45 04/22/17 17:44 03/24/17 01:12 125 MLS/HR Acetaminophen (Tylenol Tab) 650 mg Q4H PRN PO 03/23/17 15:45 04/22/17 15:44 03/23/17 23:37 650 MG Al Hydrox/Mg Hydrox/Simethicone (Maalox Max Susp) 15 ml Q4H PRN PO 03/23/17 15:45 04/22/17 15:44 Magnesium Hydroxide (Milk Of Magnesia Susp) 30 ml Q12H PRN PO 03/23/17 15:45 04/22/17 15:44 Ondansetron HCl (Zofran Inj) 4 mg Q6H PRN IV 03/23/17 15:45 04/22/17 15:44 Polyethylene (Miralax Powder Packet) 17 gm DAILY PRN PO 03/23/17 15:45 04/22/17 15:44 Alfuzosin HCl (Uroxatral Tab) 10 mg DAILY PO 03/24/17 09:00 04/23/17 08:59 Chlordiazepoxide (Librium Cap) 5 mg TID PO 03/23/17 21:00 04/22/17 20:59 03/23/17 20:43 5 MG Clopidogrel Bisulfate (plAVix TAB) 75 mg DAILY PO 03/24/17 09:00 04/23/17 08:59 Isosorbide Mononitrate (Imdur Ext Rel Tab) 30 mg DAILY PO 03/24/17 09:00 04/23/17 08:59 Levothyroxine Sodium (Synthroid Tab) 150 mcg DAILYBB PO 03/24/17 06:30 04/23/17 06:59 03/24/17 05:42 150 MCG Metoprolol Tartrate (Lopressor Tab) 25 mg BID PO 03/23/17 21:00 04/22/17 20:59 03/23/17 20:44 25 MG Multivitamins/ Minerals (Multivitamin W/ Minerals Tab) 1 tab DAILY PO 03/24/17 09:00 04/23/17 08:59 Rosuvastatin Calcium (Crestor Tab) 5 mg DAILY PO 03/24/17 09:00 04/23/17 08:59 Sertraline HCl (Zoloft Tab) 100 mg DAILY PO 03/24/17 09:00 04/23/17 08:59 Sucralfate (Carafate Tab) 1 gm TID PO 03/23/17 21:00 04/22/17 20:59 03/23/17 20:44 1 GM Pantoprazole Sodium (Protonix Tab) 40 mg QAM PO 03/24/17 09:00 04/23/17 08:59 Insulin Aspart (novoLOG ASPART) SLIDING SCALE G... ACHS SC 03/23/17 16:00 04/22/17 15:59 Glucose (Glucose 40% Gel) 15-30 GRAMS 15 GRAMS... UD PRN PO 03/23/17 16:00 04/22/17 15:59 Glucose (Glucose Chew Tab) 4-8 Tablets 4 Tabl... UD PRN PO 03/23/17 16:00 04/22/17 15:59 Dextrose (Dextrose 50% 50ML Syringe) 25-50ML OF 50% DW IV FOR... UD PRN IV 03/23/17 16:00 04/22/17 15:59 Glucagon (Glucagon Inj) 1 mg UD PRN SQ 03/23/17 16:00 04/22/17 15:59 Nystatin (Mycostatin Crm) 1 appln BID EXT 03/23/17 21:00 04/22/17 20:59 03/23/17 20:42 1 APPLN Nystatin (Mycostatin Susp) 5 ml QID PO 03/23/17 17:00 04/02/17 16:59 03/23/17 20:42 5 ML Miscellaneous Information (Pharmacist Discharge Med Rec Consult) 1 ea UD PRN N/A 03/23/17 16:15 04/22/17 16:14 Ceftriaxone Sodium 1 gm/ Dextrose 50 ml @ 100 mls/hr Q24H IV 03/23/17 18:00 04/02/17 17:59 03/23/17 17:55 100 MLS/HR Review of Systems Review of Systems Additional Comments: Pt lethargic. Unable to answer all of my questions. C/o penile pain this morning. Physical Exam Vital Signs: Vital Signs Past 12 Hours Date Time Temp Pulse Resp B/P (MAP) Pulse Ox O2 Delivery O2 Flow Rate FiO2 03/24/17 04:00 36.7 62 18 191/83 (119) 97 Room Air 03/24/17 04:00 Room Air 03/24/17 00:00 Room Air 03/23/17 23:44 37.0 74 20 178/91 (120) 96 Room Air 03/23/17 20:05 36.7 77 20 171/83 (112) 95 Room Air 03/23/17 20:00 Room Air Physical Exam: General Appearance: no apparent distress, + obese Eyes: bilateral eyes normal inspection ENT: hearing grossly normal Neck: no JVD Respiratory/Chest: no respiratory distress, no accessory muscle use Cardiovascular: no JVD Extremities: normal inspection Neurologic/Psychiatric: alert, normal mood/affect, oriented x 3 Skin: normal color Assessment & Plan Assessment & Plan A/P: Urinary retention, balanitis, hx of gross hematuria Pt failed TOV yesterday. Will leave hays catheter in place for now. Continue alfuzosin. Will also add finasteride. As for his balanitis and penile pain, continue Nystatin Cream and will also add a lidocaine jelly PRN for penile discomfort. Given the nice improvement in his Cr, will order a CT of the abd/pelvis with and without IV contrast to evaluate further for hx of gross hematuria. The pt will eventually need outpatient cysto to complete evaluation of his hematuria. Thanks for the consult. Will continue to follow along with primary service at this time.
[2017-03-24] MEDS: INSULIN ASPART 100 UNITS/ML 3 ML PEN SC SCH ×4 (08:08→19:51)
[2017-03-24] MEDS: CHLORDIAZEPOXIDE 5 MG CAP PO SCH ×3 (08:34→19:47)
[2017-03-24] MEDS: FINASTERIDE 5 MG TAB PO SCH (09:19)
[2017-03-24] MEDS: LIDOCAINE HCL 2% JELLY 30 ML TUBE EXT PRN (09:19)
--- NOTE | 2017-03-24 11:54 | DIAGNOSTIC IMAGING REPORT ---
ABDOMEN AND PELVIS CT EXAMINATION PRE AND POST INTRAVENOUS CONTRAST CT DOSE: 2136.38 mGy.cm HISTORY: Hematuria with and without IV contrast for gross hematuria TECHNIQUE: Multiaxial CT images of the abdomen and pelvis were performed pre and post intravenous contrast enhancement. COMPARISON STUDY: None. FINDINGS: Lung bases are clear. Liver spleen and pancreas appear uniform. Right kidney shows a subtle area of increased density interpolar region transaxial image 45. Left kidney demonstrates a 3 mm nonobstructing lower pole calcification. There is a high density exophytic 3.5 cm nodule projecting from the mid pole left kidney. There is no evidence renal hydronephrosis. There is an additional high density 9 mm nodule superior aspect left kidney. The enhanced component of the study shows Hounsfield units to increase and 34-38. A major increase in enhancement in density is not appreciated. Renal collecting systems with three-dimensional evaluation show no definitive filling defect. There is a catheter within the bladder. There is bladder wall thickening gallbladder is collapsed accentuating these findings. Bowel pattern overall is nonobstructive. There is atherosclerotic change abdominal aorta. There is no significant abdominal pelvic or inguinal adenopathy. There are degenerative changes of the osseous structures throughout. There are considerable degenerative changes of the osseous structures throughout. A potential lytic defects are identified in the mid body of the L5 vertebral body. Multiple Schmorl's nodes are present. There is a potential hemangioma of L2 with multiple additional lytic defects identified to lower thoracic and lumbar region. These are too numerous not to raise the concern for metastatic disease. There is no compression deformity. Potential small foci of lytic change are identified in the left and to lesser extent right iliac wings. IMPRESSION: 1. Indeterminate 3.5 cm left renal hyperdense cyst, mass. 2. Additional 9 mm indeterminate cyst/mass superior pole left kidney. 3. Nonobstructing lower pole left renal calcification. 4. Considerable bladder wall thickening. 5. 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 Although the renal lesions potentially relate to a hyperdense cyst, I cannot exclude the possibility of a renal neoplastic process based on this exam. MRI of the kidneys should be considered as a follow-up study. Electronically signed by: Jun Arevalo M.D. 03/24/2017 11:53 AM Dictated Date/Time: 03/24/2017 11:41 AM
[2017-03-24] MEDS: ACETAMINOPHEN 325 MG TAB PO PRN (11:57)
--- NOTE | 2017-03-24 13:25 | ECHOCARDIOGRAM REPORT ---
*NOTICE TO RECEIVING DEMOCRAT AGENCY This information is strictly Confidential and protected under [place] law. [place] law prohibits you from making any further disclosure of this information unless further disclosure is expressly permitted by the written consent of the person to whom it pertains or is authorized by law. A general authorization for the release of medical or other information is not sufficient for this purpose. Hospital accepts no responsibility if the information is made available to any other person, INCLUDING THE PATIENT. Interpretation Summary * Name: REBECCA GELLER JR Study Date: 03/24/2017 07:01 AM BP: 191/83 mmHg * Patient Location: [facility]\S\N285\S\1 HR: 76 * : 1930 (M/d/yyyy) Gender: Male Height: 72 in * Age: 86 yrs Ethnicity: [place] Weight: 275 lb * Ordering Physician: Reena Hanks * Referring Physician: Self, Referred * Performed By: Calin Slade RCS * * Reason For Study: Alt. of Conciousness * BSA: 2.4 m2 * -- Conclusions -- * The study was technically limited. * There is borderline concentric left ventricular hypertrophy. * Left ventricular systolic function is normal. * Calcified mitral apparatus. * Injection of contrast documented no interatrial shunt. Procedure Details * The study was technically limited. Left Ventricle * The left ventricle is grossly normal size. * There is borderline concentric left ventricular hypertrophy. * Ejection Fraction = 55-60%. * Left ventricular systolic function is normal. * Regional wall motion abnormalities cannot be excluded due to limited visualization. Right Ventricle * The right ventricle is not well visualized. Atria * The left atrium is not well visualized. * Injection of contrast documented no interatrial shunt. Mitral Valve * Calcified mitral apparatus. * Significant mitral regurgitation is absent. Tricuspid Valve * The tricuspid valve is not well visualized. Aortic Valve * The aortic valve is not well visualized. * No hemodynamically significant valvular aortic stenosis. * There is no significant aortic regurgitation. Pericardium/Pleural * There is no pericardial effusion. MMode 2D Measurements and Calculations IVSd 1.2 cm LVIDd 5.0 cm LVIDs 3.0 cm LVPWd 1.1 cm IVS/LVPW 1.1 FS 39.7 % EDV(Teich) 116.9 ml ESV(Teich) 35.0 ml EF(Teich) 70.0 % EDV(cubed) 123.1 ml ESV(cubed) 27.0 ml EF(cubed) 78.1 % LV mass(C)d 221.4 grams LV mass(C)dI 90.8 grams/m\S\2 SV(Teich) 81.9 ml SI(Teich) 33.6 ml/m\S\2 SV(cubed) 96.1 ml SI(cubed) 39.4 ml/m\S\2 Ao root diam 2.9 cm Ao root area 6.6 cm\S\2 LVOT diam 2.1 cm LVOT area 3.4 cm\S\2 LVAd ap4 37.1 cm\S\2 LVLd ap4 9.2 cm EDV(MOD-sp4) 116.2 ml EDV(sp4-el) 127.0 ml LVAs ap4 21.5 cm\S\2 LVLs ap4 7.3 cm ESV(MOD-sp4) 50.7 ml ESV(sp4-el) 54.1 ml EF(MOD-sp4) 56.3 % EF(sp4-el) 57.4 % LVAd ap2 29.1 cm\S\2 LVLd ap2 8.9 cm EDV(MOD-sp2) 77.9 ml EDV(sp2-el) 81.0 ml LVAs ap2 16.7 cm\S\2 LVLs ap2 7.0 cm ESV(MOD-sp2) 33.9 ml ESV(sp2-el) 34.0 ml EF(MOD-sp2) 56.5 % EF(sp2-el) 58.0 % LVLd %diff -3.81 % EDV(MOD-bp) 98.3 ml LVLs %diff -4.12 % ESV(MOD-bp) 42.1 ml EF(MOD-bp) 57.1 % SV(MOD-sp4) 65.4 ml SI(MOD-sp4) 26.8 ml/m\S\2 SV(MOD-sp2) 44.0 ml SI(MOD-sp2) 18.1 ml/m\S\2 SV(MOD-bp) 56.1 ml SI(MOD-bp) 23.0 ml/m\S\2 SV(sp4-el) 72.9 ml SI(sp4-el) 29.9 ml/m\S\2 SV(sp2-el) 47.0 ml SI(sp2-el) 19.3 ml/m\S\2 Doppler Measurements and Calculations MV E max tara 107.8 cm/sec MV A max tara 101.7 cm/sec MV E/A 1.1 MV dec time 0.25 sec Ao V2 max 137.0 cm/sec Ao max PG 7.5 mmHg Ao max PG (full) 0.44 mmHg BRITTON(V,A) 3.3 cm\S\2 BRITTON(V,D) 3.3 cm\S\2 LV V1 max PG 7.1 mmHg LV V1 max 132.9 cm/sec
[2017-03-24] MEDS: CEFTRIAXONE SOD INJ 1 GM in DEXTROSE 5% ADD-VANTAGE 50ML 50 ML IV SCH (17:10)
[2017-03-24] MEDS ORDERED: LORAZEPAM INJ 0.5 MG in SYRINGE 0.25 ML IV PRN (18:30)
--- NOTE | 2017-03-24 18:37 | Progress Note ---
Subjective Date of Service: Mar 24, 2017. Subjective Pt evaluation today including: conversation w/ patient, chart review, conversation w/ independent beauty consultant Penis pain is around 6/[address] Has been tolerating PO. Pt denies fever, SOB, chest pain, abd pain, n/v/c/d, LE pain or swelling. Problem List Medical Problems: (1) Change in mental status Status: Acute (2) Hypotension Status: Acute (3) Symptoms of urinary tract infection Status: Acute (4) UTI (urinary tract infection) Status: Acute Review of Systems All Other Systems: Reviewed and Negative Objective Vital Signs Date Time Temp Pulse Resp B/P (MAP) Pulse Ox O2 Delivery O2 Flow Rate FiO2 03/24/17 15:26 CPAP 03/24/17 15:15 36.6 71 18 147/79 (101) 98 Room Air 03/24/17 12:00 Room Air 03/24/17 11:27 37.3 67 18 141/72 (95) 96 Room Air 03/24/17 09:18 76 16 144/72 (96) 03/24/17 08:03 36.6 66 20 177/80 (112) 97 Room Air 03/24/17 08:00 Room Air 03/24/17 04:00 36.7 62 18 191/83 (119) 97 Room Air 03/24/17 04:00 Room Air 03/24/17 00:00 Room Air 03/23/17 23:44 37.0 74 20 178/91 (120) 96 Room Air 03/23/17 20:05 36.7 77 20 171/83 (112) 95 Room Air 03/23/17 20:00 Room Air 03/23/17 19:48 171/83 (112) Physical Exam General Appearance: no apparent distress, + obese Eyes: normal inspection, EOMI ENT: hearing grossly normal Neck: supple Respiratory/Chest: normal breath sounds, no respiratory distress Cardiovascular: regular rate, rhythm, no edema Abdomen: non tender, soft Extremities: non-tender, no pedal edema Neurologic/Psychiatric: alert, + pertinent finding (L sided weakness 4/5 against resistance, answers are minimal and family is not present) Skin: normal color, warm/dry Laboratory Results Last 24 Hours Test 03/23/17 20:45 03/24/17 05:47 03/24/17 07:50 03/24/17 11:48 Bedside Glucose 164 mg/dl 131 mg/dl 183 mg/dl White Blood Count 12.72 K/uL Red Blood Count 4.11 M/uL Hemoglobin 12.4 g/dL Hematocrit 35.8 % Mean Corpuscular Volume 87.1 fL Mean Corpuscular Hemoglobin 30.2 pg Mean Corpuscular Hemoglobin Concent 34.6 g/dl Platelet Count 223 K/uL Mean Platelet Volume 9.1 fL Neutrophils (%) (Auto) 73.3 % Lymphocytes (%) (Auto) 13.3 % Monocytes (%) (Auto) 11.3 % Eosinophils (%) (Auto) 1.1 % Basophils (%) (Auto) 0.2 % Neutrophils # (Auto) 9.32 K/uL Lymphocytes # (Auto) 1.69 K/uL Monocytes # (Auto) 1.44 K/uL Eosinophils # (Auto) 0.14 K/uL Basophils # (Auto) 0.03 K/uL RDW Standard Deviation 38.6 fL RDW Coefficient of Variation 12.0 % Immature Granulocyte % (Auto) 0.8 % Immature Granulocyte # (Auto) 0.10 K/uL Sodium Level 135 mmol/L Potassium Level 3.4 mmol/L Chloride Level 102 mmol/L Carbon Dioxide Level 23 mmol/L Anion Gap 10.0 mmol/L Blood Urea Nitrogen 23 mg/dl Creatinine 1.30 mg/dl Estimated GFR () 57.7 Estimated GFR (Non- 49.8 BUN/Creatinine Ratio 17.4 Random Glucose 116 mg/dl Calcium Level 9.5 mg/dl Triglycerides Level 108 mg/dl Cholesterol Level 130 mg/dl HDL Cholesterol 43 mg/dl LDL Cholesterol, Calculated 65 mg/dl VLDL Cholesterol, Calculated 22 mg/dl Cholesterol/HDL Ratio 3.0 Test 03/24/17 16:47 Bedside Glucose 156 mg/dl Assessment and Plan 86 y/o male with a history of DM II, HTN, HLD, CKD stage III, hypothyroidism, BPH, anxiety and depression, and PUD who presented to the ED on 03/23 with weakness, confusion, and pain in the penis. Pt originally hypotensive on arrival which resolved after receiving a 500 cc fluid bolus. Pt afebrile, and VSS. WBC 15.71. Creatinine elevated above baseline at 2.00. Head CT, C-spine CT, CXR, humerus x-ray, hand/forearm x-ray all negative. Altered mental status, left sided weakness/falls, concern for CVA -Admit to telemetry -MRI brain without contrast -MRA head and neck -Echo with EF 55-60%, neg for structural issues -Fasting lipid panel WNL -HgbA1c mildly elevated at 7.6 -Continue Plavix, statin, beta zainab -Stroke protocol, neuro checks -PT/OT ordered Sepsis likely secondary to UTI in setting of Fraser catheter, h/o urinary retention, penis pain and erythema -Hypotension resolved with fluid bolus -IVF with NSS + 20 mEq KCl at 125 cc/hr -Lactic acid WNL -Urine and blood cultures pending -Empiric Rocephin 1 gm IV qd -Nystatin cream to penis continued -Urology consulted, appreciate recs, planning outpt cystoscopy DAMIEN on CKD stage III--only other recorded creatinine at 1.6 -Creatinine 2.00 on arrival -IVF as above -Hold Benicar ?? 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 [facility]--will check records but does not believe their were irregularities on rectal exam last week Apparently pt followed at some point with [facility] PSA elevated 03/18, planning to follow given BPH and retention c-scope in the last year MRI abd pending Diabetes mellitus type 2--A1c 7.6 -Hold glipizide and Januvia -Insulin sliding scale -Check BSGs q ac and qhs -Check HgbA1c HTN--stable now after fluid bolus -Continue Lopressor 25 mg PO BID with hold parameters -Benicar held due to DAMIEN HLD -Continue Crestor 5 mg PO qd Hypothyroidism -Continue Synthroid 150 mcg PO qd BPH -Continue alfuzosin 10 mg PO qd Anxiety and depression -Continue Zoloft 100 mg PO qd and Librium 5 mg PO qhs DVT prophylaxis -Heparin 5000 units SC q8h -ZEB biggs and SCDs Code Status -Level I, FULL RESUSCITATION STATUS
--- NOTE | 2017-03-24 21:20 | DIAGNOSTIC IMAGING REPORT ---
MRI OF THE BRAIN WITHOUT CONTRAST CLINICAL HISTORY: left sided weakness FALLS, DIZZINESS. POSSIBLE STROKE. COMPARISON STUDY: None. FINDINGS: Sagittal T1, axial diffusion, proton density and T2 weighted axial, coronal FLAIR, and axial T1-weighted images were acquired. No intra or extra-axial mass lesions are visualized Axial diffusion-weighted images reveal no evidence of acute or subacute infarction. There is no evidence of ventricular dilatation. Proton density T2-weighted and FLAIR images reveal a small lacunar infarct within the left cerebellar hemisphere. There is a right basal ganglial lacunar infarct.. There are multiple foci of increased T2 and FLAIR signal within the white matter, likely on a small vessel basis. There are no abnormal flow voids. IMPRESSION: 1. No evidence of acute or subacute infarction 2. Old lacunar infarcts 3. Moderate white matter disease likely a small vessel basis 4. No evidence of intracranial mass on this noncontrast examination Electronically signed by: Brayan Gabriel M.D. 03/24/2017 9:19 PM Dictated Date/Time: 03/24/2017 9:16 PM
--- NOTE | 2017-03-24 21:25 | DIAGNOSTIC IMAGING REPORT ---
MR ANGIOGRAPHY OF THE [place] NO CONTRAST CLINICAL HISTORY: Stroke, dizziness. Fall. COMPARISON STUDY: None. A 3-D [id number] MR angiographic sequence of the [place] was performed. Both the source and projection images were reviewed. There is no evidence of aneurysm. 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 The left vertebral artery is diminutive. The basilar artery is diminutive. There is a probable distal left vertebral artery stenosis. There is no evidence of significant stenosis involving the anterior middle or posterior cerebral arteries. IMPRESSION: Unremarkable MR angiography of the [place]. 1. No evidence of aneurysm 2. 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 Diminutive left vertebral artery with a probable distal left vertebral artery stenosis. Diminutive basilar artery. Electronically signed by: Brayan Gabriel M.D. 03/24/2017 9:23 PM Dictated Date/Time: 03/24/2017 9:19 PM
--- NOTE | 2017-03-24 21:33 | Medical Student: [facility] ---
Med Student Progress Note Date of Service Mar 24, 2017. Subjective Pt evaluation today including: conversation w/ patient, conversation w/ family , physical exam, chart review, lab review, review of studies, review of inpatient medication list Pain: Penis pain 8/10 Voiding: hays catheter in place, voiding difficulty Mr. Navarro is an 86 year old man admitted yesterday 03/23/2017 with weakness, confusion, and pain in the penis. He has a history of Type II DM, HTN, CKD, hypothyroidism, BPH, anxiety and depression. Josesito first presented to the [facility] ED on 03/14/2017 for urinary retention about 9 days ago with urinary retention, at which time a catheter was placed and he was given antibiotics. Around 03/21 or 03/22, Mr. Navarro starting experiencing a 9/10 burning pain in the tip of his penis. On 03/[address] by Dr[address] Willett, had his catheter replaced, and he was prescribed nystatin cream to apply to affected area today; however, the patient was not able to fill this prescription before coming to the ED. When speaking to Mr. Navarro today, he described the pain as 8/10. Mr. Navarro's reports that he fell 3 weeks ago, and has been experiencing worsening confusion and left sided weakness for the past 2 weeks. The also reports that Josesito has been having difficulty walking; he seems to drag his feet, something he had never done before. Mr Navarro reports having headaches on and off for "years" but is not having one right now. He reports dizziness upon standing. He denies chest pain, palpitations, shortness of breath, fevers , chills, nausea, vomiting, abdominal pain, hematuria, bloody/black tarry stools , diarrhea, constipation, numbness and tingling . Review of Systems Constitutional: + weakness, + fatigue, No fever, No chills ENT: + dental problems (teeth pulled, has denture), + problem reported (hard of hearing) Respiratory: No shortness of breath Cardiac: No chest pain, No palpitations, No problem reported Abdomen: No pain, No nausea, No vomiting, No diarrhea, No constipation, No problem reported Musculoskeletal: No joint pain (back pain, lower back) Male : + problem reported (urinary retention) Neurologic: + weakness, + balance problems Psychiatric: + depression symptoms, + anxiety Heme: No problem reported Skin: No problem reported All Other Systems: Reviewed and Negative Objective Vital Signs Date Time Temp Pulse Resp B/P (MAP) Pulse Ox O2 Delivery O2 Flow Rate FiO2 03/24/17 20:00 Room Air 03/24/17 19:58 36.9 68 20 165/83 (110) 96 Room Air 03/24/17 15:26 CPAP 03/24/17 15:15 36.6 71 18 147/79 (101) 98 Room Air 03/24/17 12:00 Room Air 03/24/17 11:27 37.3 67 18 141/72 (95) 96 Room Air 03/24/17 09:18 76 16 144/72 (96) 03/24/17 08:03 36.6 66 20 177/80 (112) 97 Room Air 03/24/17 08:00 Room Air 03/24/17 04:00 36.7 62 18 191/83 (119) 97 Room Air 03/24/17 04:00 Room Air 03/24/17 00:00 Room Air 03/23/17 23:44 37.0 74 20 178/91 (120) 96 Room Air Physical Exam General Appearance: no apparent distress, + obese Eyes: bilateral eyes normal inspection, bilateral eyes PERRL ENT: normal ENT inspection Neck: supple, no adenopathy Respiratory/Chest: chest non-tender, lungs clear, normal breath sounds, no respiratory distress Cardiovascular: regular rate, rhythm, no gallop, no murmur Abdomen: normal bowel sounds, non tender, soft, + hernia Neurologic/Psychiatric: + abnormal psych social worker II-XII (reduced left shoulder shrug CN XI), + motor weakness (4/5 on left side (shoulder, bicep, tricep, hip, knee, hand embedder)), + disoriented (disoriented to place), + pertinent finding Skin: normal color, warm/dry Lymphatic: no adenopathy Laboratory Results Last 24 Hours Test 03/24/17 05:47 03/24/17 07:50 03/24/17 11:48 03/24/17 16:47 White Blood Count 12.72 K/uL Red Blood Count 4.11 M/uL Hemoglobin 12.4 g/dL Hematocrit 35.8 % Mean Corpuscular Volume 87.1 fL Mean Corpuscular Hemoglobin 30.2 pg Mean Corpuscular Hemoglobin Concent 34.6 g/dl Platelet Count 223 K/uL Mean Platelet Volume 9.1 fL Neutrophils (%) (Auto) 73.3 % Lymphocytes (%) (Auto) 13.3 % Monocytes (%) (Auto) 11.3 % Eosinophils (%) (Auto) 1.1 % Basophils (%) (Auto) 0.2 % Neutrophils # (Auto) 9.32 K/uL Lymphocytes # (Auto) 1.69 K/uL Monocytes # (Auto) 1.44 K/uL Eosinophils # (Auto) 0.14 K/uL Basophils # (Auto) 0.03 K/uL RDW Standard Deviation 38.6 fL RDW Coefficient of Variation 12.0 % Immature Granulocyte % (Auto) 0.8 % Immature Granulocyte # (Auto) 0.10 K/uL Sodium Level 135 mmol/L Potassium Level 3.4 mmol/L Chloride Level 102 mmol/L Carbon Dioxide Level 23 mmol/L Anion Gap 10.0 mmol/L Blood Urea Nitrogen 23 mg/dl Creatinine 1.30 mg/dl Estimated GFR () 57.7 Estimated GFR (Non- 49.8 BUN/Creatinine Ratio 17.4 Random Glucose 116 mg/dl Calcium Level 9.5 mg/dl Triglycerides Level 108 mg/dl Cholesterol Level 130 mg/dl HDL Cholesterol 43 mg/dl LDL Cholesterol, Calculated 65 mg/dl VLDL Cholesterol, Calculated 22 mg/dl Cholesterol/HDL Ratio 3.0 Bedside Glucose 131 mg/dl 183 mg/dl 156 mg/dl Test 03/24/17 19:50 Bedside Glucose 144 mg/dl Medications Current Inpatient Medications Medications (Trade) Dose Ordered Sig/Sulema Route Start Time Stop Time Status Last Admin Dose Admin Heparin Sodium (Porcine) (Heparin Sq 5000 Unit/0.5ml) 5,000 unit Q8 SQ 03/23/17 22:00 04/22/17 21:59 03/24/17 13:32 5,000 UNIT Potassium Chloride/Sodium Chloride 1,000 ml @ 125 mls/hr Q8H IV 03/23/17 17:45 04/22/17 17:44 03/24/17 16:36 125 MLS/HR Acetaminophen (Tylenol Tab) 650 mg Q4H PRN PO 03/23/17 15:45 04/22/17 15:44 03/24/17 11:57 650 MG Al Hydrox/Mg Hydrox/Simethicone (Maalox Max Susp) 15 ml Q4H PRN PO 03/23/17 15:45 04/22/17 15:44 Magnesium Hydroxide (Milk Of Magnesia Susp) 30 ml Q12H PRN PO 03/23/17 15:45 04/22/17 15:44 Ondansetron HCl (Zofran Inj) 4 mg Q6H PRN IV 03/23/17 15:45 04/22/17 15:44 Polyethylene (Miralax Powder Packet) 17 gm DAILY PRN PO 03/23/17 15:45 04/22/17 15:44 Alfuzosin HCl (Uroxatral Tab) 10 mg DAILY PO 03/24/17 09:00 04/23/17 08:59 03/24/17 07:57 10 MG Chlordiazepoxide (Librium Cap) 5 mg TID PO 03/23/17 21:00 04/22/17 20:59 03/24/17 19:47 5 MG Clopidogrel Bisulfate (plAVix TAB) 75 mg DAILY PO 03/24/17 09:00 04/23/17 08:59 03/24/17 07:57 75 MG Isosorbide Mononitrate (Imdur Ext Rel Tab) 30 mg DAILY PO 03/24/17 09:00 04/23/17 08:59 03/24/17 07:57 30 MG Levothyroxine Sodium (Synthroid Tab) 150 mcg DAILYBB PO 03/24/17 06:30 04/23/17 06:59 03/24/17 05:42 150 MCG Metoprolol Tartrate (Lopressor Tab) 25 mg BID PO 03/23/17 21:00 04/22/17 20:59 03/24/17 19:41 25 MG Multivitamins/ Minerals (Multivitamin W/ Minerals Tab) 1 tab DAILY PO 03/24/17 09:00 04/23/17 08:59 03/24/17 07:57 1 TAB Rosuvastatin Calcium (Crestor Tab) 5 mg DAILY PO 03/24/17 09:00 04/23/17 08:59 03/24/17 07:57 5 MG Sertraline HCl (Zoloft Tab) 100 mg DAILY PO 03/24/17 09:00 04/23/17 08:59 03/24/17 07:57 100 MG Sucralfate (Carafate Tab) 1 gm TID PO 03/23/17 21:00 04/22/17 20:59 03/24/17 19:41 1 GM Pantoprazole Sodium (Protonix Tab) 40 mg QAM PO 03/24/17 09:00 04/23/17 08:59 03/24/17 07:56 40 MG Insulin Aspart (novoLOG ASPART) SLIDING SCALE G... ACHS SC 03/23/17 16:00 04/22/17 15:59 03/24/17 11:57 1 UNITS Glucose (Glucose 40% Gel) 15-30 GRAMS 15 GRAMS... UD PRN PO 03/23/17 16:00 04/22/17 15:59 Glucose (Glucose Chew Tab) 4-8 Tablets 4 Tabl... UD PRN PO 03/23/17 16:00 04/22/17 15:59 Dextrose (Dextrose 50% 50ML Syringe) 25-50ML OF 50% DW IV FOR... UD PRN IV 03/23/17 16:00 04/22/17 15:59 Glucagon (Glucagon Inj) 1 mg UD PRN SQ 03/23/17 16:00 04/22/17 15:59 Nystatin (Mycostatin Crm) 1 appln BID EXT 03/23/17 21:00 04/22/17 20:59 03/24/17 19:40 1 APPLN Nystatin (Mycostatin Susp) 5 ml QID PO 03/23/17 17:00 04/02/17 16:59 03/24/17 19:40 5 ML Miscellaneous Information (Pharmacist Discharge Med Rec Consult) 1 ea UD PRN N/A 03/23/17 16:15 04/22/17 16:14 Ceftriaxone Sodium 1 gm/ Dextrose 50 ml @ 100 mls/hr Q24H IV 03/23/17 18:00 04/02/17 17:59 03/24/17 17:10 100 MLS/HR Lidocaine HCl (Xylocaine Jelly 2%) 2 ml PRN PRN EXT 03/24/17 08:00 04/23/17 07:59 03/24/17 09:19 2 ML Finasteride (Proscar Tab) 5 mg QAM PO 03/24/17 09:00 04/23/17 08:59 03/24/17 09:19 5 MG Ioversol (Optiray 320) 125 ml UD PRN IV 03/24/17 08:00 03/28/17 07:59 Lorazepam 0.5 mg/ Syringe 0.5 ml @ 0.5 mls/min ONE PRN IV 03/24/17 18:30 04/23/17 18:29 Assessment and Plan Problems Change in mental status Hypotension Symptoms of urinary tract infection UTI (urinary tract infection) Assessment and Plan: 86 year old male with a history of DM II, HTN, HLD, CKD stage III, hypothyroidism, BPH, anxiety and depression, and PUD who presented to the ED on 03/23 with weakness, confusion, and pain in the penis. Pt originally hypotensive on arrival which resolved after receiving a 500 cc fluid bolus. Pt afebrile, and VSS. WBC 15.71. Creatinine elevated above baseline at 2.00. Head CT, C- spine CT, CXR, humerus x-ray, hand/forearm x-ray all negative. 1. Possible CVA, altered mental status, left sided weakness -Admit to telemetry -MRI brain without contrast -MRA head and neck -Echo with EF 55-60%, neg for structural issues -Fasting lipid panel WNL -HgbA1c mildly elevated at 7.6 -Continue Plavix, statin, beta zainab -Stroke protocol, neuro checks -PT/OT ordered 2. Sepsis likely secondary to UTI, urinary retention, penis pain -Hypotension resolved with fluid bolus -Continue IVF with NSS + 20 mEq KCl at 125 cc/hr -Lactic acid WNL -Urine and blood cultures pending -cephtriaxone 1 gm IV qd -continue nystatin cream for penis pain -consult urology 3. DAMIEN on CKD stage III -Creatinine 2.00 on arrival -IVF as above -Hold olmesartan 4. BPH/elevated PSA lytic lesions -Call Herminia Hein, the orology [facility] that saw him recently to find out more info -PSA elevated at 5.300 when last measured on 03/18 -Obtain previous PSA levels and compare -Continue alfuzosin 5. Diabetes mellitus type 2 -Last A1c 7.6 -Hold glipizide and sitagliptin -Check BSGs q ac and qhs -Check HgbA1c 6. HTN -stable now -Continue metoprolol 25 mg PO BID with hold parameters -olmesartan held due to DAMIEN 7. HLD -Continue rosuvastatin 5 mg PO qd 8. Hypothyroidism -Continue levothyroxine 150 mcg PO qd 9. Anxiety and depression -Continue sertraline 100 mg PO qd and Chlordiazepoxide 5 mg PO qhs DVT prophylaxis -Heparin 5000 units SC q8h -ZEB biggs and Payam Code Status -Level I, FULL RESUSCITATION STATUS Continued [facility] stay due to: voiding difficulties, ambulation difficulties Reviewed: Pt Seen/Exam by Me History See my note for details. Assessment/Plan 86 y/o male with a history of DM II, HTN, HLD, CKD stage III, hypothyroidism, BPH, anxiety and depression, and PUD who presented to the ED on 03/23 with weakness, confusion, and pain in the penis. Pt originally hypotensive on arrival which resolved after receiving a 500 cc fluid bolus. Pt afebrile, and VSS. WBC 15.71. Creatinine elevated above baseline at 2.00. Head CT, C-spine CT, CXR, humerus x-ray, hand/forearm x-ray all negative. 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, neg for sig carotid stenosis -Echo with EF 55-60%, neg for structural issues -Fasting lipid panel WNL -HgbA1c elevated at 7.6 -Continue Plavix, statin, beta zainab -Stroke protocol, neuro checks -PT/OT recs for rehab Sepsis likely secondary to UTI in setting of Hays catheter, h/o urinary retention, penis pain and erythema -Hypotension resolved with fluid bolus -IVF with NSS + 20 mEq KCl at 125 cc/hr -Lactic acid WNL -Urine and blood cultures pending -Empiric Rocephin 1 gm IV qd, switch to keflex -Nystatin cream to penis continued -Urology consulted, appreciate recs, planning outpt cystoscopy and hays x7 days , will repeat PSA testing at f/u DAMIEN on CKD stage III--only other recorded creatinine at 1.6 -Creatinine 2.00 on arrival -Improving on IVF -Resume Benicar ?? 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 [facility]--will check records but does not believe there were irregularities on rectal exam last week Apparently pt followed at some point with [facility] PSA elevated 03/18, planning to follow given BPH and retention c-scope in the last year neg per family MRI abd with benign renal lesions SPEP, UPEP, free light chains, and LDH pending for multiple myeloma, family is aware that these are send out labs and will likely need to f/u with hem/once for results Ca is WNL Diabetes mellitus type 2--A1c 7.6 -Hold glipizide and Januvia -Insulin sliding scale -Check BSGs q ac and qhs -Check HgbA1c HTN--labile, will resume benicar today give DAMIEN has resolved -Continue Lopressor 25 mg PO BID with hold parameters HLD -Continue Crestor 5 mg PO qd Hypothyroidism -Continue Synthroid 150 mcg PO qd BPH -Continue alfuzosin 10 mg PO qd Anxiety and depression -Continue Zoloft 100 mg PO qd and Librium 5 mg PO qhs DVT prophylaxis -Heparin 5000 units SC q8h -ZEB biggs and Payam Code Status -Level I, FULL RESUSCITATION STATUS Planning for [facility], however unable to contact pt's primary insurance for auth until Tuesday
--- NOTE | 2017-03-24 21:36 | DIAGNOSTIC IMAGING REPORT ---
MRA NECK WITHOUT CONTRAST CLINICAL HISTORY: Stroke COMPARISON STUDY: No previous studies for comparison. FINDINGS: Breath-hold noncontrast MR angiographic sequences were acquired. The examination is mildly limited from a technical standpoint. There is no evidence of hemodynamically significant carotid stenosis. The right vertebral appears hypoplastic with possible areas of focal occlusion. IMPRESSION: 1. Small right vertebral artery with suspected areas of focal occlusion versus high-grade stenosis 2. No evidence of hemodynamically significant carotid stenosis. Electronically signed by: Brayan Gabriel M.D. 03/24/2017 9:35 PM Dictated Date/Time: 03/24/2017 9:33 PM
[2017-03-24] MEDS ORDERED: GADAVIST IV PRN (22:30)
--- NOTE | 2017-03-24 22:39 | DIAGNOSTIC IMAGING REPORT ---
MRI ABDOMEN COMBO CLINICAL HISTORY: Indeterminate left renal masses TECHNIQUE: Imaging was performed in the axial coronal planes. Imaging was performed before and after the administration 11 cc of intravenous Gadavist.. COMPARISON STUDY: CT scan dated 03/24/2017 FINDINGS: The visualized portions of the liver and spleen are unremarkable. There is no evidence of abdominal aortic aneurysm. No adrenal masses are visualized. No pancreatic masses are visualized. In addition to tiny bilateral renal cortical cysts, there is a 13 mm T1 hyperintense upper pole left renal lesion and 38 mm T1 hyperintense mid pole left renal lesion. Neither of these lesions enhance. There are no significant septations. The lesions are felt to represent proteinaceous/hyperdense cysts. The vertebral body marrow is heterogeneous in signal intensity. IMPRESSION: 1. The indeterminate left renal lesions described on CT scanning, are felt to represent benign proteinaceous/hyperdense cysts. Electronically signed by: Brayan Gabriel M.D. 03/24/2017 10:38 PM Dictated Date/Time: 03/24/2017 10:29 PM
[2017-03-25] MEDS: NSS + 20MEQ KCL 1000ML 1,000 ML IV SCH ×2 (01:16→07:47)
[2017-03-25 04:10] VITALS: BP 147/90; PULSE 62; TEMP 36.7; O2SAT 97
[2017-03-25] MEDS: LEVOTHYROXINE 150 MCG TAB PO SCH (06:03)
[2017-03-25 06:05] LABS: BASO % 0.3 %; BASO ABS # 0.03 K/uL (0-0.2); COMPLETE YES; EOS % 2.4 %; HEMATOCRIT 32.5 % (42-52); LYMPH % 15.9 %; LYMPH ABS # 1.58 K/uL (1.2-3.4); MEAN CELL VOLUME 87.4 fL (80-100); MEAN CORPUSCULAR HEMOGLOBIN 30.9 pg (25-34); MEAN CORPUSCULAR HGB CONC 35.4 g/dl (32-36); MEAN PLATELET VOLUME 8.6 fL (7.4-10.4); MONO % 9.3 %; NEUT % 71.1 %; PLATELET COUNT 220 K/uL (130-400); RED BLOOD COUNT 3.72 M/uL (4.7-6.1); WHITE BLOOD COUNT 9.94 K/uL (4.8-10.8)
[2017-03-25] MEDS: HEPARIN SOD 5000 UNIT/0.5 ML CARP SQ SCH ×3 (06:05→20:43)
[2017-03-25 06:34] LABS: BUN/CREATININE RATIO 16.8 (10-20); CALCIUM 8.9 mg/dl (8.5-10.1); POTASSIUM 3.6 mmol/L (3.5-5.1)
[2017-03-25 07:29] VITALS: BP 182/84; PULSE 64; TEMP 36.7; O2SAT 97
--- NOTE | 2017-03-25 07:34 | Medical Student: [facility] ---
Med Student Progress Note Date of Service Mar 25, 2017. Subjective Pt evaluation today including: conversation w/ patient, physical exam, chart review, lab review, review of studies, review of inpatient medication list Voiding: hays catheter in place Mr. Navarro is an 86 year old male with a history of DM II, HTN, HLD, CKD stage III, hypothyroidism, BPH, anxiety and depression, and PUD who presented to the ED on 03/23 with weakness, confusion, and pain in the penis. He reports that his penis pain is gone. Rates it 09/28. Catheter is still in place. He remains slightly confused. While he was alert and oriented to time and place, as well as capable of carrying on a conversation, he had difficulty explaining to me the events that led up to his admission or why he was in the hospital. He feels that his strength has improved and is able to ambulate to the washroom with help from a walker. He still c/o headache and dizziness upon standing, as well as pain in his neck and mid back. He denies chest pain, shortness of breath , abdominal pain, dyspnea, changes in hearing or vision, nausea, vomiting, diarrhea, constipation, numbness or tingling in his extremities. Review of Systems Constitutional: No fever, No chills Eyes: No problem reported ENT: No problem reported Respiratory: No shortness of breath, No dyspnea on exertion Cardiac: No chest pain, No palpitations Abdomen: No pain, No nausea, No vomiting, No diarrhea, No constipation Musculoskeletal: + problem reported (mid back pain) Male : + problem reported (urinary retention) Neurologic: + weakness, + balance problems Psychiatric: No problem reported Objective Vital Signs Date Time Temp Pulse Resp B/P (MAP) Pulse Ox O2 Delivery O2 Flow Rate FiO2 03/25/17 07:29 36.7 64 24 182/84 (116) 97 Room Air 03/25/17 04:10 36.7 62 20 147/90 (109) 97 Room Air 03/25/17 04:00 Room Air 03/25/17 00:00 Room Air 03/24/17 22:59 36.9 69 20 175/75 (108) 94 Room Air 03/24/17 20:00 Room Air 03/24/17 19:58 36.9 68 20 165/83 (110) 96 Room Air 03/24/17 15:26 CPAP 03/24/17 15:15 36.6 71 18 147/79 (101) 98 Room Air 03/24/17 12:00 Room Air 03/24/17 11:27 37.3 67 18 141/72 (95) 96 Room Air 03/24/17 09:18 76 16 144/72 (96) 03/24/17 08:03 36.6 66 20 177/80 (112) 97 Room Air 03/24/17 08:00 Room Air Physical Exam General Appearance: no apparent distress, + obese Eyes: bilateral eyes normal inspection, bilateral eyes PERRL, bilateral eyes EOMI ENT: normal ENT inspection Neck: supple, no adenopathy Respiratory/Chest: chest non-tender, lungs clear, normal breath sounds Cardiovascular: regular rate, rhythm Abdomen: normal bowel sounds, non tender, + hernia Neurologic/Psychiatric: supervisor advice II-XII nml as tested, oriented x 3, + motor weakness Skin: normal color, warm/dry Laboratory Results Last 24 Hours Test 03/24/17 07:50 03/24/17 11:48 03/24/17 16:47 03/24/17 19:50 Bedside Glucose 131 mg/dl 183 mg/dl 156 mg/dl 144 mg/dl Test 03/25/17 05:42 White Blood Count 9.94 K/uL Red Blood Count 3.72 M/uL Hemoglobin 11.5 g/dL Hematocrit 32.5 % Mean Corpuscular Volume 87.4 fL Mean Corpuscular Hemoglobin 30.9 pg Mean Corpuscular Hemoglobin Concent 35.4 g/dl Platelet Count 220 K/uL Mean Platelet Volume 8.6 fL Neutrophils (%) (Auto) 71.1 % Lymphocytes (%) (Auto) 15.9 % Monocytes (%) (Auto) 9.3 % Eosinophils (%) (Auto) 2.4 % Basophils (%) (Auto) 0.3 % Neutrophils # (Auto) 7.07 K/uL Lymphocytes # (Auto) 1.58 K/uL Monocytes # (Auto) 0.92 K/uL Eosinophils # (Auto) 0.24 K/uL Basophils # (Auto) 0.03 K/uL RDW Standard Deviation 38.4 fL RDW Coefficient of Variation 11.9 % Immature Granulocyte % (Auto) 1.0 % Immature Granulocyte # (Auto) 0.10 K/uL Sodium Level 138 mmol/L Potassium Level 3.6 mmol/L Chloride Level 107 mmol/L Carbon Dioxide Level 24 mmol/L Anion Gap 7.0 mmol/L Blood Urea Nitrogen 17 mg/dl Creatinine 1.00 mg/dl Est Creatinine Clear Calc Drug Dose 70.6 ml/min Estimated GFR () 79.2 Estimated GFR (Non- 68.3 BUN/Creatinine Ratio 16.8 Random Glucose 116 mg/dl Calcium Level 8.9 mg/dl Medications Current Inpatient Medications Medications (Trade) Dose Ordered Sig/Sulema Route Start Time Stop Time Status Last Admin Dose Admin Heparin Sodium (Porcine) (Heparin Sq 5000 Unit/0.5ml) 5,000 unit Q8 SQ 03/23/17 22:00 04/22/17 21:59 03/25/17 06:05 5,000 UNIT Potassium Chloride/Sodium Chloride 1,000 ml @ 125 mls/hr Q8H IV 03/23/17 17:45 04/22/17 17:44 03/25/17 01:16 125 MLS/HR Acetaminophen (Tylenol Tab) 650 mg Q4H PRN PO 03/23/17 15:45 04/22/17 15:44 03/24/17 11:57 650 MG Al Hydrox/Mg Hydrox/Simethicone (Maalox Max Susp) 15 ml Q4H PRN PO 03/23/17 15:45 04/22/17 15:44 Magnesium Hydroxide (Milk Of Magnesia Susp) 30 ml Q12H PRN PO 03/23/17 15:45 04/22/17 15:44 Ondansetron HCl (Zofran Inj) 4 mg Q6H PRN IV 03/23/17 15:45 04/22/17 15:44 Polyethylene (Miralax Powder Packet) 17 gm DAILY PRN PO 03/23/17 15:45 04/22/17 15:44 Alfuzosin HCl (Uroxatral Tab) 10 mg DAILY PO 03/24/17 09:00 04/23/17 08:59 03/24/17 07:57 10 MG Chlordiazepoxide (Librium Cap) 5 mg TID PO 03/23/17 21:00 04/22/17 20:59 03/24/17 19:47 5 MG Clopidogrel Bisulfate (plAVix TAB) 75 mg DAILY PO 03/24/17 09:00 04/23/17 08:59 03/24/17 07:57 75 MG Isosorbide Mononitrate (Imdur Ext Rel Tab) 30 mg DAILY PO 03/24/17 09:00 04/23/17 08:59 03/24/17 07:57 30 MG Levothyroxine Sodium (Synthroid Tab) 150 mcg DAILYBB PO 03/24/17 06:30 04/23/17 06:59 03/25/17 06:03 150 MCG Metoprolol Tartrate (Lopressor Tab) 25 mg BID PO 03/23/17 21:00 04/22/17 20:59 03/24/17 19:41 25 MG Multivitamins/ Minerals (Multivitamin W/ Minerals Tab) 1 tab DAILY PO 03/24/17 09:00 04/23/17 08:59 03/24/17 07:57 1 TAB Rosuvastatin Calcium (Crestor Tab) 5 mg DAILY PO 03/24/17 09:00 04/23/17 08:59 03/24/17 07:57 5 MG Sertraline HCl (Zoloft Tab) 100 mg DAILY PO 03/24/17 09:00 04/23/17 08:59 03/24/17 07:57 100 MG Sucralfate (Carafate Tab) 1 gm TID PO 03/23/17 21:00 04/22/17 20:59 03/24/17 19:41 1 GM Pantoprazole Sodium (Protonix Tab) 40 mg QAM PO 03/24/17 09:00 04/23/17 08:59 03/24/17 07:56 40 MG Insulin Aspart (novoLOG ASPART) SLIDING SCALE G... ACHS SC 03/23/17 16:00 04/22/17 15:59 03/24/17 11:57 1 UNITS Glucose (Glucose 40% Gel) 15-30 GRAMS 15 GRAMS... UD PRN PO 03/23/17 16:00 04/22/17 15:59 Glucose (Glucose Chew Tab) 4-8 Tablets 4 Tabl... UD PRN PO 03/23/17 16:00 04/22/17 15:59 Dextrose (Dextrose 50% 50ML Syringe) 25-50ML OF 50% DW IV FOR... UD PRN IV 03/23/17 16:00 04/22/17 15:59 Glucagon (Glucagon Inj) 1 mg UD PRN SQ 03/23/17 16:00 04/22/17 15:59 Nystatin (Mycostatin Crm) 1 appln BID EXT 03/23/17 21:00 04/22/17 20:59 03/24/17 19:40 1 APPLN Nystatin (Mycostatin Susp) 5 ml QID PO 03/23/17 17:00 04/02/17 16:59 03/24/17 19:40 5 ML Miscellaneous Information (Pharmacist Discharge Med Rec Consult) 1 ea UD PRN N/A 03/23/17 16:15 04/22/17 16:14 Ceftriaxone Sodium 1 gm/ Dextrose 50 ml @ 100 mls/hr Q24H IV 03/23/17 18:00 04/02/17 17:59 03/24/17 17:10 100 MLS/HR Lidocaine HCl (Xylocaine Jelly 2%) 2 ml PRN PRN EXT 03/24/17 08:00 04/23/17 07:59 03/24/17 09:19 2 ML Finasteride (Proscar Tab) 5 mg QAM PO 03/24/17 09:00 04/23/17 08:59 03/24/17 09:19 5 MG Ioversol (Optiray 320) 125 ml UD PRN IV 03/24/17 08:00 03/28/17 07:59 Lorazepam 0.5 mg/ Syringe 0.5 ml @ 0.5 mls/min ONE PRN IV 03/24/17 18:30 04/23/17 18:29 Gadobutrol (Gadavist) 11 mmol UD PRN IV 03/24/17 22:30 03/28/17 22:29 Assessment and Plan Problems Change in mental status Symptoms of urinary tract infection UTI (urinary tract infection) BPH (benign prostatic hyperplasia) Assessment and Plan: 1. 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 Sepsis likely secondary to UTI, urinary retention, penis pain -Hypotension resolved with fluid bolus -Continue IVF with NSS -Lactic acid WNL -Urine and blood cultures negative -cephalexin PO 500mg q12h -continue nystatin cream for penis pain -consult urology 3. BPH/elevated PSA lytic lesions -PSA elevated at 5.300 when last measured on 03/18 -Obtain previous PSA levels and compare -Continue alfuzosin -Follow up with urology 5. Diabetes mellitus type 2 -Last A1c 7.6 -Hold glipizide and sitagliptin -Check BSGs q ac and qhs -Check HgbA1c 6. HTN -Continue metoprolol 25 mg PO BID with hold parameters -olmesartan held due to DAMIEN 7. HLD -Continue rosuvastatin 5 mg PO qd 8. Hypothyroidism -Continue levothyroxine 150 mcg PO qd 9. Anxiety and depression -Continue sertraline 100 mg PO qd and Chlordiazepoxide 5 mg PO qhs DVT prophylaxis -Heparin 5000 units SC q8h -ZEB hose and SCDs Continued [facility] stay due to: voiding difficulties, ambulation difficulties Reviewed: Pt Seen/Exam by Me History See my note for details. Assessment/Plan 86 y/o male with a history of DM II, HTN, HLD, CKD stage III, hypothyroidism, BPH, anxiety and depression, and PUD who presented to the ED on 03/23 with weakness, confusion, and pain in the penis. Pt originally hypotensive on arrival which resolved after receiving a 500 cc fluid bolus. Pt afebrile, and VSS. WBC 15.71. Creatinine elevated above baseline at 2.00. Head CT, C-spine CT, CXR, humerus x-ray, hand/forearm x-ray all negative. 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, neg for sig carotid stenosis -Echo with EF 55-60%, neg for structural issues -Fasting lipid panel WNL -HgbA1c elevated at 7.6 -Continue Plavix, statin, beta zainab -Stroke protocol, neuro checks -PT/OT recs for rehab Sepsis likely secondary to UTI in setting of Hays catheter, h/o urinary retention, penis pain and erythema -Hypotension resolved with fluid bolus -IVF with NSS + 20 mEq KCl at 125 cc/hr -Lactic acid WNL -Urine and blood cultures pending -Empiric Rocephin 1 gm IV qd, switch to keflex -Nystatin cream to penis continued -Urology consulted, appreciate recs, planning outpt cystoscopy and hays x7 days , will repeat PSA testing at f/u DAMIEN on CKD stage III--only other recorded creatinine at 1.6 -Creatinine 2.00 on arrival -Improving on IVF -Resume Benicar ?? 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 RN [employer]--will check records but does not believe there were irregularities on rectal exam last week Apparently pt followed at some point with [facility] PSA elevated 03/18, planning to follow given BPH and retention c-scope in the last year neg per family MRI abd with benign renal lesions SPEP, UPEP, free light chains, and LDH pending for multiple myeloma, family is aware that these are send out labs and will likely need to f/u with hem/once for results Ca is WNL Diabetes mellitus type 2--A1c 7.6 -Hold glipizide and Januvia -Insulin sliding scale -Check BSGs q ac and qhs -Check HgbA1c HTN--labile, will resume benicar today give DAMIEN has resolved -Continue Lopressor 25 mg PO BID with hold parameters HLD -Continue Crestor 5 mg PO qd Hypothyroidism -Continue Synthroid 150 mcg PO qd BPH -Continue alfuzosin 10 mg PO qd Anxiety and depression -Continue Zoloft 100 mg PO qd and Librium 5 mg PO qhs DVT prophylaxis -Heparin 5000 units SC q8h -ZEB biggs and SCDs Code Status -Level I, FULL RESUSCITATION STATUS Planning for [facility], however unable to contact pt's primary insurance for auth until Tuesday
[2017-03-25] MEDS: ISOSORBIDE MONONITRATE 30 MG TABCR PO SCH (07:47)
[2017-03-25] MEDS: NYSTATIN CR 15 GM TUBE EXT SCH ×2 (07:47→20:45)
[2017-03-25] MEDS: CLOPIDOGREL BISULFATE 75 MG TAB PO SCH (07:47)
[2017-03-25] MEDS: ROSUVASTATIN CALCIUM 5 MG TAB PO SCH (07:48)
[2017-03-25] MEDS: CEROVITE ADV FORMULA TAB PO SCH (07:48)
[2017-03-25] MEDS: SERTRALINE HCL 100 MG TAB PO SCH (07:48)
[2017-03-25] MEDS: FINASTERIDE 5 MG TAB PO SCH (07:48)
[2017-03-25] MEDS: METOPROLOL TARTRATE 25 MG TAB PO SCH ×2 (07:48→20:45)
[2017-03-25] MEDS: PANTOprazole SOD 40 MG TAB PO SCH (07:48)
[2017-03-25] MEDS: SUCRALFATE 1 GM TAB PO SCH ×3 (07:49→20:45)
[2017-03-25] MEDS: ALFUZosin TAB 10 MG TAB PO SCH (07:49)
[2017-03-25] MEDS: NYSTATIN SUSP 500,000 U/5 ML UDC PO SCH ×4 (07:49→20:45)
[2017-03-25] MEDS: LIDOCAINE HCL 2% JELLY 30 ML TUBE EXT PRN (07:55)
[2017-03-25] MEDS: INSULIN ASPART 100 UNITS/ML 3 ML PEN SC SCH ×4 (08:23→20:39)
[2017-03-25] MEDS: CHLORDIAZEPOXIDE 5 MG CAP PO SCH ×3 (08:48→20:49)
--- NOTE | 2017-03-25 10:41 | Progress Note ---
Subjective Date of Service: Mar 25, 2017. Subjective Pt evaluation today including: conversation w/ patient, physical exam Voiding: hays catheter in place Pt continues to have penile discomfort due to balanitis but reports has improved some. Using nystatin cream and prn lidocaine jelly. Hays intact for hx of urinary retention. Failed TOV on 03/23. Remains on alfuzosin and finasteride. He continues to complain of weakness and fatigue. CT scan of abd/pelvis showed questionable lytic lesions of left kidney. MRI of abdomen for further evaluation reveals areas to be benign hyperdense cysts. PSA was also noted to be 5.3 recently. Per office note SURESH was unremarkable but not fully assessed due to body habitus. He continues on IV ceftriaxone. Urine culture and blood cultures 03/23/17 showed no growth. Problem List Medical Problems: (1) Change in mental status Status: Acute (2) Hypotension Status: Acute (3) Symptoms of urinary tract infection Status: Acute (4) UTI (urinary tract infection) Status: Acute Review of Systems Constitutional: No fever, No chills Eyes: No worsening of vision ENT: No hearing loss Respiratory: No cough, No shortness of breath Male : + see HPI Endo: + fatigue Objective Vital Signs Date Time Temp Pulse Resp B/P (MAP) Pulse Ox O2 Delivery O2 Flow Rate FiO2 03/25/17 08:00 Room Air 03/25/17 07:29 36.7 64 24 182/84 (116) 97 Room Air 03/25/17 04:10 36.7 62 20 147/90 (109) 97 Room Air 03/25/17 04:00 Room Air 03/25/17 00:00 Room Air 03/24/17 22:59 36.9 69 20 175/75 (108) 94 Room Air 03/24/17 20:00 Room Air 03/24/17 19:58 36.9 68 20 165/83 (110) 96 Room Air 03/24/17 15:26 CPAP 03/24/17 15:15 36.6 71 18 147/79 (101) 98 Room Air 03/24/17 12:00 Room Air 03/24/17 11:27 37.3 67 18 141/72 (95) 96 Room Air Physical Exam General Appearance: WD/WN, no apparent distress ENT: hearing grossly normal Respiratory/Chest: no respiratory distress, no accessory muscle use Neurologic/Psychiatric: alert Skin: normal color Comments: : circumcised male. Balanitis improving. edema noted at frenulum. Laboratory Results Last 24 Hours Test 03/24/17 11:48 03/24/17 16:47 03/24/17 19:50 03/25/17 05:42 Bedside Glucose 183 mg/dl 156 mg/dl 144 mg/dl White Blood Count 9.94 K/uL Red Blood Count 3.72 M/uL Hemoglobin 11.5 g/dL Hematocrit 32.5 % Mean Corpuscular Volume 87.4 fL Mean Corpuscular Hemoglobin 30.9 pg Mean Corpuscular Hemoglobin Concent 35.4 g/dl Platelet Count 220 K/uL Mean Platelet Volume 8.6 fL Neutrophils (%) (Auto) 71.1 % Lymphocytes (%) (Auto) 15.9 % Monocytes (%) (Auto) 9.3 % Eosinophils (%) (Auto) 2.4 % Basophils (%) (Auto) 0.3 % Neutrophils # (Auto) 7.07 K/uL Lymphocytes # (Auto) 1.58 K/uL Monocytes # (Auto) 0.92 K/uL Eosinophils # (Auto) 0.24 K/uL Basophils # (Auto) 0.03 K/uL RDW Standard Deviation 38.4 fL RDW Coefficient of Variation 11.9 % Immature Granulocyte % (Auto) 1.0 % Immature Granulocyte # (Auto) 0.10 K/uL Sodium Level 138 mmol/L Potassium Level 3.6 mmol/L Chloride Level 107 mmol/L Carbon Dioxide Level 24 mmol/L Anion Gap 7.0 mmol/L Blood Urea Nitrogen 17 mg/dl Creatinine 1.00 mg/dl Est Creatinine Clear Calc Drug Dose 70.6 ml/min Estimated GFR () 79.2 Estimated GFR (Non- 68.3 BUN/Creatinine Ratio 16.8 Random Glucose 116 mg/dl Calcium Level 8.9 mg/dl Test 03/25/17 07:26 Bedside Glucose 121 mg/dl Assessment and Plan Urinary retention Continue hays at this time. Failed TOV on 03/23. Recommend leaving for at least 7 days. Depending on d/c date may consider TOV prior to discharge. Hematuria Abnormal CT finding of hyperdense renal lesions.- MRI abdomen confirmed benign cysts. No concerns for renal carcinoma. Metastatic prostate cancer with a PSA of 5.3 is unlikely. Will repeat this prior to his outpt cystoscopy with Dr. Willett. Continued [facility] stay due to: voiding difficulties, ambulation difficulties
[2017-03-25 11:45] VITALS: BP 171/77; PULSE 63; TEMP 36.7; O2SAT 97
[2017-03-25 15:31] VITALS: BP 130/64; PULSE 69; TEMP 36; O2SAT 98
[2017-03-25] MEDS: CEPHALEXIN MONOHYDRATE 500 MG CAP PO SCH (16:16)
--- NOTE | 2017-03-25 17:24 | Progress Note ---
Subjective Date of Service: Mar 25, 2017. Subjective Pt evaluation today including: conversation w/ patient, conversation w/ family , chart review Pt was up OOB earlier this AM and reports his L sided weakness is improving. He has been somnolent this afternoon. He tolerated PO without issue. Pt denies fever, SOB, chest pain, abd pain, n/v/c/d, LE pain or swelling. Family is present and feels he looks improved today. Concerns over ability to care for pt at home at this time given ambulation issues. Problem List Medical Problems: (1) Change in mental status Status: Acute (2) Hypotension Status: Acute (3) Symptoms of urinary tract infection Status: Acute (4) UTI (urinary tract infection) Status: Acute Review of Systems All Other Systems: Reviewed and Negative Objective Vital Signs Date Time Temp Pulse Resp B/P (MAP) Pulse Ox O2 Delivery O2 Flow Rate FiO2 03/25/17 15:31 36.0 69 20 130/64 (86) 98 Room Air 03/25/17 15:23 Room Air 03/25/17 12:00 Room Air 03/25/17 11:45 36.7 63 20 171/77 (108) 97 Room Air 03/25/17 08:00 Room Air 03/25/17 07:29 36.7 64 24 182/84 (116) 97 Room Air 03/25/17 04:10 36.7 62 20 147/90 (109) 97 Room Air 03/25/17 04:00 Room Air 03/25/17 00:00 Room Air 03/24/17 22:59 36.9 69 20 175/75 (108) 94 Room Air 03/24/17 20:00 Room Air 03/24/17 19:58 36.9 68 20 165/83 (110) 96 Room Air Physical Exam Comments: General Appearance: no apparent distress, + obese Eyes: normal inspection, EOMI ENT: hearing grossly normal Neck: supple Respiratory/Chest: normal breath sounds, no respiratory distress Cardiovascular: regular rate, rhythm, no edema Abdomen: non tender, soft Extremities: non-tender, no pedal edema Neurologic/Psychiatric: alert, + pertinent finding (L sided weakness improved, answers are minimal due to inability to stay awake) Skin: normal color, warm/dry Laboratory Results Last 24 Hours Test 03/24/17 19:50 03/25/17 05:42 03/25/17 07:26 03/25/17 11:31 Bedside Glucose 144 mg/dl 121 mg/dl 174 mg/dl White Blood Count 9.94 K/uL Red Blood Count 3.72 M/uL Hemoglobin 11.5 g/dL Hematocrit 32.5 % Mean Corpuscular Volume 87.4 fL Mean Corpuscular Hemoglobin 30.9 pg Mean Corpuscular Hemoglobin Concent 35.4 g/dl Platelet Count 220 K/uL Mean Platelet Volume 8.6 fL Neutrophils (%) (Auto) 71.1 % Lymphocytes (%) (Auto) 15.9 % Monocytes (%) (Auto) 9.3 % Eosinophils (%) (Auto) 2.4 % Basophils (%) (Auto) 0.3 % Neutrophils # (Auto) 7.07 K/uL Lymphocytes # (Auto) 1.58 K/uL Monocytes # (Auto) 0.92 K/uL Eosinophils # (Auto) 0.24 K/uL Basophils # (Auto) 0.03 K/uL RDW Standard Deviation 38.4 fL RDW Coefficient of Variation 11.9 % Immature Granulocyte % (Auto) 1.0 % Immature Granulocyte # (Auto) 0.10 K/uL Sodium Level 138 mmol/L Potassium Level 3.6 mmol/L Chloride Level 107 mmol/L Carbon Dioxide Level 24 mmol/L Anion Gap 7.0 mmol/L Blood Urea Nitrogen 17 mg/dl Creatinine 1.00 mg/dl Est Creatinine Clear Calc Drug Dose 70.6 ml/min Estimated GFR () 79.2 Estimated GFR (Non- 68.3 BUN/Creatinine Ratio 16.8 Random Glucose 116 mg/dl Calcium Level 8.9 mg/dl Test 03/25/17 16:26 03/25/17 16:50 Bedside Glucose 176 mg/dl Assessment and Plan 86 y/o male with a history of DM II, HTN, HLD, CKD stage III, hypothyroidism, BPH, anxiety and depression, and PUD who presented to the ED on 03/23 with weakness, confusion, and pain in the penis. Pt originally hypotensive on arrival which resolved after receiving a 500 cc fluid bolus. Pt afebrile, and VSS. WBC 15.71. Creatinine elevated above baseline at 2.00. Head CT, C-spine CT, CXR, humerus x-ray, hand/forearm x-ray all negative. 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, neg for sig carotid stenosis -Echo with EF 55-60%, neg for structural issues -Fasting lipid panel WNL -HgbA1c mildly elevated at 7.6 -Continue Plavix, statin, beta zainab -Stroke protocol, neuro checks -PT/OT recs for rehab Sepsis likely secondary to UTI in setting of Hays catheter, h/o urinary retention, penis pain and erythema -Hypotension resolved with fluid bolus -IVF with NSS + 20 mEq KCl at 125 cc/hr -Lactic acid WNL -Urine and blood cultures pending -Empiric Rocephin 1 gm IV qd, switch to keflex -Nystatin cream to penis continued -Urology consulted, appreciate recs, planning outpt cystoscopy and hays x7 days , will repeat PSA testing at f/u DAMIEN on CKD stage III--only other recorded creatinine at 1.6 -Creatinine 2.00 on arrival -Improving on IVF -Resume Benicar ?? lytic lesions: discussed with Herminia Hien, urology [employer]--will check records but does not believe there were irregularities on rectal exam last week Apparently pt followed at some point with [facility] PSA elevated 03/18, planning to follow given BPH and retention c-scope in the last year neg per family MRI abd with benign renal lesions SPEP, UPEP, free light chains, and LDH pending for multiple myeloma, family is aware that these are send out labs and will likely need to f/u with hem/once for results Ca is WNL Diabetes mellitus type 2--A1c 7.6 -Hold glipizide and Januvia -Insulin sliding scale -Check BSGs q ac and qhs -Check HgbA1c HTN--stable now after fluid bolus -Continue Lopressor 25 mg PO BID with hold parameters -Benicar held due to DAMIEN HLD -Continue Crestor 5 mg PO qd Hypothyroidism -Continue Synthroid 150 mcg PO qd BPH -Continue alfuzosin 10 mg PO qd Anxiety and depression -Continue Zoloft 100 mg PO qd and Librium 5 mg PO qhs DVT prophylaxis -Heparin 5000 units SC q8h -ZEB hose and SCDs Code Status -Level I, FULL RESUSCITATION STATUS Stable for transfer to floor Continued [facility] stay due to: voiding difficulties, ambulation difficulties
[2017-03-25 20:56] VITALS: BP 161/70; PULSE 65; TEMP 36.5; O2SAT 99
[2017-03-25 23:36] VITALS: BP 197/104; PULSE 60; TEMP 36.9; O2SAT 96
[2017-03-26] MEDS: LEVOTHYROXINE 150 MCG TAB PO SCH (06:10)
[2017-03-26] MEDS: HEPARIN SOD 5000 UNIT/0.5 ML CARP SQ SCH ×3 (06:15→20:57)
[2017-03-26 06:16] LABS: BASO % 0.3 %; BASO ABS # 0.03 K/uL (0-0.2); COMPLETE YES; EOS % 2.5 %; HEMATOCRIT 33.6 % (42-52); IG% 0.8 %; LYMPH % 13.5 %; LYMPH ABS # 1.45 K/uL (1.2-3.4); MEAN CORPUSCULAR HEMOGLOBIN 30.6 pg (25-34); MEAN CORPUSCULAR HGB CONC 34.8 g/dl (32-36); MEAN PLATELET VOLUME 8.8 fL (7.4-10.4); MONO % 9.2 %; NEUT % 73.7 %; PLATELET COUNT 236 K/uL (130-400); RED BLOOD COUNT 3.82 M/uL (4.7-6.1); WHITE BLOOD COUNT 10.73 K/uL (4.8-10.8)
[2017-03-26] MEDS: INSULIN ASPART 100 UNITS/ML 3 ML PEN SC SCH ×4 (06:30→20:50)
[2017-03-26 06:43] LABS: BUN/CREATININE RATIO 13.1 (10-20); CALCIUM 9.5 mg/dl (8.5-10.1); CREATININE 1.1 mg/dl (0.60-1.40); POTASSIUM 3.8 mmol/L (3.5-5.1)
[2017-03-26 07:26] VITALS: BP 214/98; PULSE 61; TEMP 36.4; O2SAT 95
[2017-03-26] MEDS: OLMESARTAN MEDOXOMIL 20 MG TAB PO SCH (07:57)
[2017-03-26] MEDS: CLOPIDOGREL BISULFATE 75 MG TAB PO SCH (07:57)
[2017-03-26] MEDS: HYDROCHLOROTHIAZIDE 25 MG TAB PO SCH (07:57)
[2017-03-26] MEDS: METOPROLOL TARTRATE 25 MG TAB PO SCH ×2 (07:58→20:52)
[2017-03-26] MEDS: SERTRALINE HCL 100 MG TAB PO SCH (07:58)
[2017-03-26] MEDS: ISOSORBIDE MONONITRATE 30 MG TABCR PO SCH (07:58)
[2017-03-26] MEDS: CEROVITE ADV FORMULA TAB PO SCH (07:58)
[2017-03-26] MEDS: PANTOprazole SOD 40 MG TAB PO SCH (07:59)
[2017-03-26] MEDS: SUCRALFATE 1 GM TAB PO SCH ×3 (07:59→20:51)
[2017-03-26] MEDS: NYSTATIN SUSP 500,000 U/5 ML UDC PO SCH ×4 (07:59→20:51)
[2017-03-26] MEDS: ALFUZosin TAB 10 MG TAB PO SCH (07:59)
[2017-03-26] MEDS: FINASTERIDE 5 MG TAB PO SCH (07:59)
[2017-03-26] MEDS: ROSUVASTATIN CALCIUM 5 MG TAB PO SCH (07:59)
[2017-03-26] MEDS: CEPHALEXIN MONOHYDRATE 500 MG CAP PO SCH ×2 (08:00→16:13)
[2017-03-26] MEDS: NYSTATIN CR 15 GM TUBE EXT SCH ×2 (08:00→20:51)
[2017-03-26] MEDS: CHLORDIAZEPOXIDE 5 MG CAP PO SCH ×3 (08:13→20:51)
--- NOTE | 2017-03-26 14:52 | Progress Note ---
Subjective Date of Service: Mar 26, 2017. Subjective Pt evaluation today including: conversation w/ patient, chart review Pt was apparently agitated with family earlier today. I saw pt after they had left. He describes frustration with not being able to ambulate like he feels he should and with everyone having to take care of him and his usual role in the family. He feels there is ongoing improvements in the L sided weakness. Tolerating PO. Pt denies fever, SOB, chest pain, abd pain, n/v/c/d, LE pain or swelling. Problem List Medical Problems: (1) Change in mental status Status: Acute (2) Hypotension Status: Acute (3) Symptoms of urinary tract infection Status: Acute (4) UTI (urinary tract infection) Status: Acute Review of Systems All Other Systems: Reviewed and Negative Objective Vital Signs Date Time Temp Pulse Resp B/P (MAP) Pulse Ox O2 Delivery O2 Flow Rate FiO2 03/26/17 08:00 Room Air 03/26/17 07:26 36.4 61 20 214/98 (136) 95 Room Air 03/26/17 00:00 Room Air 03/25/17 23:36 36.9 60 18 197/104 (135) 96 Room Air 03/25/17 20:56 36.5 65 18 161/70 (100) 99 Room Air 03/25/17 20:00 Room Air 03/25/17 15:31 36.0 69 20 130/64 (86) 98 Room Air 03/25/17 15:23 Room Air Physical Exam Comments: General Appearance: no apparent distress, + obese Eyes: normal inspection, EOMI ENT: hearing grossly normal Neck: supple Respiratory/Chest: normal breath sounds, no respiratory distress Cardiovascular: regular rate, rhythm, no edema Abdomen: non tender, soft Extremities: non-tender, no pedal edema Neurologic/Psychiatric: alert, + pertinent finding (L sided weakness improved, most awake and interactive as I have seen pt, answers all questions with full answers and moving UE/LE around) Skin: normal color, warm/dry Laboratory Results Last 24 Hours Test 03/25/17 16:26 03/25/17 16:50 03/25/17 19:38 03/26/17 02:40 Bedside Glucose 176 mg/dl 146 mg/dl Lactate Dehydrogenase 142 U/L Test 03/26/17 06:03 03/26/17 07:45 03/26/17 11:38 White Blood Count 10.73 K/uL Red Blood Count 3.82 M/uL Hemoglobin 11.7 g/dL Hematocrit 33.6 % Mean Corpuscular Volume 88.0 fL Mean Corpuscular Hemoglobin 30.6 pg Mean Corpuscular Hemoglobin Concent 34.8 g/dl Platelet Count 236 K/uL Mean Platelet Volume 8.8 fL Neutrophils (%) (Auto) 73.7 % Lymphocytes (%) (Auto) 13.5 % Monocytes (%) (Auto) 9.2 % Eosinophils (%) (Auto) 2.5 % Basophils (%) (Auto) 0.3 % Neutrophils # (Auto) 7.90 K/uL Lymphocytes # (Auto) 1.45 K/uL Monocytes # (Auto) 0.99 K/uL Eosinophils # (Auto) 0.27 K/uL Basophils # (Auto) 0.03 K/uL RDW Standard Deviation 38.6 fL RDW Coefficient of Variation 11.9 % Immature Granulocyte % (Auto) 0.8 % Immature Granulocyte # (Auto) 0.09 K/uL Sodium Level 136 mmol/L Potassium Level 3.8 mmol/L Chloride Level 103 mmol/L Carbon Dioxide Level 25 mmol/L Anion Gap 8.0 mmol/L Blood Urea Nitrogen 14 mg/dl Creatinine 1.10 mg/dl Est Creatinine Clear Calc Drug Dose 64.1 ml/min Estimated GFR () 70.6 Estimated GFR (Non- 60.9 BUN/Creatinine Ratio 13.1 Random Glucose 124 mg/dl Calcium Level 9.5 mg/dl Bedside Glucose 124 mg/dl 169 mg/dl Assessment and Plan 86 y/o male with a history of DM II, HTN, HLD, CKD stage III, hypothyroidism, BPH, anxiety and depression, and PUD who presented to the ED on 03/23 with weakness, confusion, and pain in the penis. Pt originally hypotensive on arrival which resolved after receiving a 500 cc fluid bolus. Pt afebrile, and VSS. WBC 15.71. Creatinine elevated above baseline at 2.00. Head CT, C-spine CT, CXR, humerus x-ray, hand/forearm x-ray all negative. 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, neg for sig carotid stenosis -Echo with EF 55-60%, neg for structural issues -Fasting lipid panel WNL -HgbA1c elevated at 7.6 -Continue Plavix, statin, beta zainab -Stroke protocol, neuro checks -PT/OT recs for rehab Sepsis likely secondary to UTI in setting of [place] catheter, h/o urinary retention, penis pain and erythema -Hypotension resolved with fluid bolus -IVF with NSS + 20 mEq KCl at 125 cc/hr -Lactic acid WNL -Urine and blood cultures pending -Empiric Rocephin 1 gm IV qd, switch to keflex -Nystatin cream to penis continued -Urology consulted, appreciate recs, planning outpt cystoscopy and hays x7 days , will repeat PSA testing at f/u DAMIEN on CKD stage III--only other recorded creatinine at 1.6 -Creatinine 2.00 on arrival -Improving on IVF -Resume Benicar ?? 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 SALON SALES CONSULTANT--will check records but does not believe there were irregularities on rectal exam last week Apparently pt followed at some point with [facility] PSA elevated 03/18, planning to follow given BPH and retention c-scope in the last year neg per family MRI abd with benign renal lesions SPEP, UPEP, free light chains, and LDH pending for multiple myeloma, family is aware that these are send out labs and will likely need to f/u with hem/once for results Ca is WNL Diabetes mellitus type 2--A1c 7.6 -Hold glipizide and Januvia -Insulin sliding scale -Check BSGs q ac and qhs -Check HgbA1c HTN--labile, will resume benicar today give DAMIEN has resolved -Continue Lopressor 25 mg PO BID with hold parameters HLD -Continue Crestor 5 mg PO qd Hypothyroidism -Continue Synthroid 150 mcg PO qd BPH -Continue alfuzosin 10 mg PO qd Anxiety and depression -Continue Zoloft 100 mg PO qd and Librium 5 mg PO qhs DVT prophylaxis -Heparin 5000 units SC q8h -ZEB biggs and SCDs Code Status -Level I, FULL RESUSCITATION STATUS Planning for [facility], however unable to contact pt's primary insurance for auth until Tuesday Continued [facility] stay due to: voiding difficulties, ambulation difficulties
[2017-03-26 15:22] VITALS: BP 164/83; PULSE 61; TEMP 36.6; O2SAT 96
[2017-03-26] MEDS: ACETAMINOPHEN 325 MG TAB PO PRN (19:20)
[2017-03-27] MEDS: LEVOTHYROXINE 150 MCG TAB PO SCH (05:56)
[2017-03-27] MEDS: HEPARIN SOD 5000 UNIT/0.5 ML CARP SQ SCH ×3 (06:03→20:44)
[2017-03-27] MEDS: INSULIN ASPART 100 UNITS/ML 3 ML PEN SC SCH ×4 (06:30→20:44)
[2017-03-27 07:15] VITALS: BP 186/94; PULSE 61; TEMP 37.1; O2SAT 96
[2017-03-27] MEDS: ISOSORBIDE MONONITRATE 30 MG TABCR PO SCH (08:19)
[2017-03-27] MEDS: CHLORDIAZEPOXIDE 5 MG CAP PO SCH ×3 (08:19→20:43)
[2017-03-27] MEDS: SUCRALFATE 1 GM TAB PO SCH ×3 (08:19→20:45)
[2017-03-27] MEDS: ALFUZosin TAB 10 MG TAB PO SCH (08:19)
[2017-03-27] MEDS: CLOPIDOGREL BISULFATE 75 MG TAB PO SCH (08:20)
[2017-03-27] MEDS: OLMESARTAN MEDOXOMIL 20 MG TAB PO SCH (08:20)
[2017-03-27] MEDS: NYSTATIN CR 15 GM TUBE EXT SCH ×2 (08:20→20:45)
[2017-03-27] MEDS: FINASTERIDE 5 MG TAB PO SCH (08:20)
[2017-03-27] MEDS: METOPROLOL TARTRATE 25 MG TAB PO SCH ×2 (08:21→20:44)
[2017-03-27] MEDS: PANTOprazole SOD 40 MG TAB PO SCH (08:21)
[2017-03-27] MEDS: CEPHALEXIN MONOHYDRATE 500 MG CAP PO SCH ×2 (08:21→17:02)
[2017-03-27] MEDS: CEROVITE ADV FORMULA TAB PO SCH (08:21)
[2017-03-27] MEDS: ROSUVASTATIN CALCIUM 5 MG TAB PO SCH (08:21)
[2017-03-27] MEDS: SERTRALINE HCL 100 MG TAB PO SCH (08:21)
[2017-03-27] MEDS: HYDROCHLOROTHIAZIDE 25 MG TAB PO SCH (08:21)
[2017-03-27] MEDS: NYSTATIN SUSP 500,000 U/5 ML UDC PO SCH ×4 (08:23→20:42)
[2017-03-27 11:36] VITALS: BP 156/78; PULSE 59; TEMP 36.7; O2SAT 93
--- NOTE | 2017-03-27 13:25 | Progress Note ---
Subjective Date of Service: Mar 27, 2017. Subjective Pt evaluation today including: conversation w/ patient Pt difficult to arouse this AM, however is sleeping without his CPAP. Reported agitation for nursing overnight, but has been sleeping or drowsy all morning for nursing today. Tolerating PO. Pt denies fever, SOB, chest pain, abd pain, n/v/c/d, LE pain or swelling. Problem List Medical Problems: (1) Change in mental status Status: Acute (2) Hypotension Status: Acute (3) Symptoms of urinary tract infection Status: Acute (4) UTI (urinary tract infection) Status: Acute Objective Vital Signs Date Time Temp Pulse Resp B/P (MAP) Pulse Ox O2 Delivery O2 Flow Rate FiO2 03/27/17 11:36 36.7 59 20 156/78 (104) 93 Room Air 03/27/17 08:00 Room Air 03/27/17 07:15 37.1 61 20 186/94 (124) 96 Room Air 03/27/17 00:00 Room Air 03/26/17 20:00 Room Air 03/26/17 16:00 Room Air 03/26/17 15:22 36.6 61 20 164/83 (110) 96 Room Air Physical Exam Comments: General Appearance: no apparent distress, + obese Eyes: normal inspection, EOMI ENT: hearing grossly normal Neck: supple Respiratory/Chest: normal breath sounds, no respiratory distress Cardiovascular: regular rate, rhythm, no edema Abdomen: non tender, soft Extremities: non-tender, no pedal edema Neurologic/Psychiatric: alert but falling asleep easily, + pertinent finding ( L sided weakness improved prior, but difficult to assess today due to pt somnolence) Skin: normal color, warm/dry Laboratory Results Last 24 Hours Test 03/26/17 16:38 03/26/17 16:53 03/26/17 20:39 03/27/17 07:37 Bedside Glucose 139 mg/dl 143 mg/dl 149 mg/dl 126 mg/dl Test 03/27/17 12:03 Bedside Glucose 149 mg/dl Assessment and Plan 86 y/o male with a history of DM II, HTN, HLD, CKD stage III, hypothyroidism, BPH, anxiety and depression, and PUD who presented to the ED on 03/23 with weakness, confusion, and pain in the penis. Pt originally hypotensive on arrival which resolved after receiving a 500 cc fluid bolus. Pt afebrile, and VSS. WBC 15.71. Creatinine elevated above baseline at 2.00. Head CT, C-spine CT, CXR, humerus x-ray, hand/forearm x-ray all negative. 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, neg for sig carotid stenosis -Echo with EF 55-60%, neg for structural issues -Fasting lipid panel WNL -HgbA1c elevated at 7.6 -Continue Plavix, statin, beta zainab -Stroke protocol, neuro checks -PT/OT recs for rehab Pt needs to be compliant with CPAP Sepsis likely secondary to UTI in setting of [place] catheter, h/o urinary retention, penis pain and erythema -Hypotension resolved with fluid bolus -IVF with NSS + 20 mEq KCl at 125 cc/hr -Lactic acid WNL -Urine and blood cultures neg -Empiric Rocephin 1 gm IV qd, tolerating switch to keflex -Nystatin cream to penis continued -Urology consulted, appreciate recs, planning outpt cystoscopy after hays x7 days, will repeat PSA testing at f/u DAMIEN on CKD stage III--only other recorded creatinine at 1.6 -Creatinine 2.00 on arrival -Improving on IVF -Resume Benicar ?? 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 PROPERTY DEVELOPER--will check records but does not believe there were irregularities on rectal exam last week Apparently pt followed at some point with [facility] PSA elevated 03/18, planning to follow given BPH and retention c-scope in the last year neg per family MRI abd with benign renal lesions SPEP, UPEP, free light chains, and LDH pending for multiple myeloma, family is aware that these are send out labs and will likely need to f/u with hem/once for results Ca is WNL Diabetes mellitus type 2--A1c 7.6 -Hold glipizide and Januvia -Insulin sliding scale -Check BSGs q ac and qhs -Check HgbA1c HTN--labile, but improving with resumption of benicar today give DAMIEN has resolved -Continue Lopressor 25 mg PO BID with hold parameters HLD -Continue Crestor 5 mg PO qd Hypothyroidism -Continue Synthroid 150 mcg PO qd BPH -Continue alfuzosin 10 mg PO qd Anxiety and depression -Continue Zoloft 100 mg PO qd and Librium 5 mg PO qhs DVT prophylaxis -Heparin 5000 units SC q8h -ZEB biggs and Payam Code Status -Level I, FULL RESUSCITATION STATUS Planning for [facility], however unable to contact pt's primary insurance for auth until Tuesday Continued [facility] stay due to: voiding difficulties, ambulation difficulties
[2017-03-27 15:45] VITALS: BP 182/79; PULSE 62; TEMP 37; O2SAT 96
[2017-03-27 23:18] VITALS: BP 128/62; PULSE 82; TEMP 36.4; O2SAT 90
[2017-03-28] MEDS: LEVOTHYROXINE 150 MCG TAB PO SCH (06:17)
[2017-03-28] MEDS: HEPARIN SOD 5000 UNIT/0.5 ML CARP SQ SCH ×3 (06:19→21:13)
[2017-03-28] MEDS: INSULIN ASPART 100 UNITS/ML 3 ML PEN SC SCH ×5 (06:30→21:05)
[2017-03-28 07:21] VITALS: BP 184/84; PULSE 64; TEMP 36.9; O2SAT 93
[2017-03-28] MEDS: CEPHALEXIN MONOHYDRATE 500 MG CAP PO SCH ×2 (07:37→17:39)
[2017-03-28] MEDS: CEROVITE ADV FORMULA TAB PO SCH (07:37)
[2017-03-28] MEDS: HYDROCHLOROTHIAZIDE 25 MG TAB PO SCH (07:38)
[2017-03-28] MEDS: SERTRALINE HCL 100 MG TAB PO SCH (07:38)
[2017-03-28] MEDS: PANTOprazole SOD 40 MG TAB PO SCH (07:38)
[2017-03-28] MEDS: FINASTERIDE 5 MG TAB PO SCH (07:38)
[2017-03-28] MEDS: CLOPIDOGREL BISULFATE 75 MG TAB PO SCH (07:38)
[2017-03-28] MEDS: ISOSORBIDE MONONITRATE 30 MG TABCR PO SCH (07:38)
[2017-03-28] MEDS: METOPROLOL TARTRATE 25 MG TAB PO SCH ×2 (07:39→20:55)
[2017-03-28] MEDS: SUCRALFATE 1 GM TAB PO SCH ×3 (07:39→20:56)
[2017-03-28] MEDS: NYSTATIN SUSP 500,000 U/5 ML UDC PO SCH ×4 (07:39→20:54)
[2017-03-28] MEDS: OLMESARTAN MEDOXOMIL 20 MG TAB PO SCH (07:40)
[2017-03-28] MEDS: ALFUZosin TAB 10 MG TAB PO SCH (07:40)
[2017-03-28] MEDS: NYSTATIN CR 15 GM TUBE EXT SCH ×2 (07:40→20:57)
[2017-03-28] MEDS: ROSUVASTATIN CALCIUM 5 MG TAB PO SCH (07:41)
[2017-03-28] MEDS: CHLORDIAZEPOXIDE 5 MG CAP PO SCH ×3 (07:43→21:06)
[2017-03-28 15:30] VITALS: BP 122/66; PULSE 65; TEMP 36.8; O2SAT 94
[2017-03-28 16:41] LABS: FREE KAPPA 29.7 MG/L (3.3-19.4); FREE KAPPA/LAMBDA RATIO 1.16 (0.26-1.65); FREE LAMBDA 25.7 MG/L (5.7-26.3); TOTAL PROTEIN 6.3 G/DL (6.2-8.3)
[2017-03-28 19:36] VITALS: BP 144/75; PULSE 68; TEMP 36.7; O2SAT 95
[2017-03-28 23:25] VITALS: BP 172/73; PULSE 65; TEMP 36.6; O2SAT 94
[2017-03-28] MEDS: ACETAMINOPHEN 325 MG TAB PO PRN (23:27)
[2017-03-29] MEDS: HEPARIN SOD 5000 UNIT/0.5 ML CARP SQ SCH ×3 (05:51→21:30)
[2017-03-29] MEDS: LEVOTHYROXINE 150 MCG TAB PO SCH (05:52)
[2017-03-29 06:01] LABS: HEMATOCRIT 35.4 % (42-52); MEAN CELL VOLUME 86.6 fL (80-100); MEAN CORPUSCULAR HEMOGLOBIN 29.8 pg (25-34); MEAN CORPUSCULAR HGB CONC 34.5 g/dl (32-36); MEAN PLATELET VOLUME 8.3 fL (7.4-10.4); PLATELET COUNT 289 K/uL (130-400); RED BLOOD COUNT 4.09 M/uL (4.7-6.1); WHITE BLOOD COUNT 11.98 K/uL (4.8-10.8)
[2017-03-29 07:44] VITALS: BP 179/85; PULSE 57; TEMP 36.4; O2SAT 92
[2017-03-29 07:55] VITALS: BP 186/81; PULSE 60
[2017-03-29] MEDS: INSULIN ASPART 100 UNITS/ML 3 ML PEN SC SCH ×4 (08:09→21:00)
[2017-03-29] MEDS: SERTRALINE HCL 100 MG TAB PO SCH (08:33)
[2017-03-29] MEDS: FINASTERIDE 5 MG TAB PO SCH (08:33)
[2017-03-29] MEDS: ALFUZosin TAB 10 MG TAB PO SCH (08:33)
[2017-03-29] MEDS: SUCRALFATE 1 GM TAB PO SCH ×3 (08:33→21:23)
[2017-03-29] MEDS: ISOSORBIDE MONONITRATE 30 MG TABCR PO SCH (08:34)
[2017-03-29] MEDS: ROSUVASTATIN CALCIUM 5 MG TAB PO SCH (08:34)
[2017-03-29] MEDS: CEPHALEXIN MONOHYDRATE 500 MG CAP PO SCH ×2 (08:34→17:50)
[2017-03-29] MEDS: METOPROLOL TARTRATE 25 MG TAB PO SCH ×2 (08:34→21:22)
[2017-03-29] MEDS: HYDROCHLOROTHIAZIDE 25 MG TAB PO SCH (08:35)
[2017-03-29] MEDS: OLMESARTAN MEDOXOMIL 20 MG TAB PO SCH (08:35)
[2017-03-29] MEDS: CLOPIDOGREL BISULFATE 75 MG TAB PO SCH (08:36)
[2017-03-29] MEDS: NYSTATIN SUSP 500,000 U/5 ML UDC PO SCH ×4 (08:36→21:22)
[2017-03-29] MEDS: CEROVITE ADV FORMULA TAB PO SCH (08:37)
[2017-03-29] MEDS: PANTOprazole SOD 40 MG TAB PO SCH (08:37)
[2017-03-29] MEDS: NYSTATIN CR 15 GM TUBE EXT SCH ×2 (08:59→21:21)
[2017-03-29] MEDS: CHLORDIAZEPOXIDE 5 MG CAP PO SCH ×3 (09:02→21:31)
--- NOTE | 2017-03-29 09:11 | Progress Note ---
Subjective Date of Service: Mar 28, 2017. Subjective Pt evaluation today including: conversation w/ patient, conversation w/ family ( at the bedside), physical exam, lab review, review of inpatient medication list Pain: left arm around elbow, since admission, worse after OT PO Intake: adequate Voiding: hays catheter in place patient laying in bed, only complaint is left arm pain around the elbow reported that he participated with therapy today, looking for [place], needs insurance authorization says that his breathing is stable, no chest pain, eating well and moving bowels he wants to know when hays catheter can be removed, urology recommended keeping until 03/31 reviewed all imaging, no fractures, no stroke on MRI, does have some vertebral stenosis on MRA, carotids patent Problem List Medical Problems: (1) Change in mental status Status: Acute (2) Hypotension Status: Acute (3) Symptoms of urinary tract infection Status: Acute (4) UTI (urinary tract infection) Status: Acute Review of Systems Constitutional: + weakness, + fatigue Respiratory: + dyspnea on exertion Musculoskeletal: + joint pain (left arm, elbow, mild pain in shoulder) Neurologic: + weakness, + vertigo, + balance problems All Other Systems: Reviewed and Negative Medications Current Inpatient Medications Medications (Trade) Dose Ordered Sig/Sulema Route Start Time Stop Time Status Last Admin Dose Admin Heparin Sodium (Porcine) (Heparin Sq 5000 Unit/0.5ml) 5,000 unit Q8 SQ 03/23/17 22:00 04/22/17 21:59 03/28/17 13:51 5,000 UNIT Acetaminophen (Tylenol Tab) 650 mg Q4H PRN PO 03/23/17 15:45 04/22/17 15:44 03/26/17 19:20 650 MG Al Hydrox/Mg Hydrox/Simethicone (Maalox Max Susp) 15 ml Q4H PRN PO 03/23/17 15:45 04/22/17 15:44 Magnesium Hydroxide (Milk Of Magnesia Susp) 30 ml Q12H PRN PO 03/23/17 15:45 04/22/17 15:44 Ondansetron HCl (Zofran Inj) 4 mg Q6H PRN IV 03/23/17 15:45 04/22/17 15:44 Polyethylene (Miralax Powder Packet) 17 gm DAILY PRN PO 03/23/17 15:45 04/22/17 15:44 Alfuzosin HCl (Uroxatral Tab) 10 mg DAILY PO 03/24/17 09:00 04/23/17 08:59 03/28/17 07:40 10 MG Chlordiazepoxide (Librium Cap) 5 mg TID PO 03/23/17 21:00 04/22/17 20:59 03/28/17 13:53 5 MG Clopidogrel Bisulfate (plAVix TAB) 75 mg DAILY PO 03/24/17 09:00 04/23/17 08:59 03/28/17 07:38 75 MG Isosorbide Mononitrate (Imdur Ext Rel Tab) 30 mg DAILY PO 03/24/17 09:00 04/23/17 08:59 03/28/17 07:38 30 MG Levothyroxine Sodium (Synthroid Tab) 150 mcg DAILYBB PO 03/24/17 06:30 04/23/17 06:59 03/28/17 06:17 150 MCG Metoprolol Tartrate (Lopressor Tab) 25 mg BID PO 03/23/17 21:00 04/22/17 20:59 03/28/17 07:39 25 MG Multivitamins/ Minerals (Multivitamin W/ Minerals Tab) 1 tab DAILY PO 03/24/17 09:00 04/23/17 08:59 03/28/17 07:37 1 TAB Rosuvastatin Calcium (Crestor Tab) 5 mg DAILY PO 03/24/17 09:00 04/23/17 08:59 03/28/17 07:41 5 MG Sertraline HCl (Zoloft Tab) 100 mg DAILY PO 03/24/17 09:00 04/23/17 08:59 03/28/17 07:38 100 MG Sucralfate (Carafate Tab) 1 gm TID PO 03/23/17 21:00 04/22/17 20:59 03/28/17 13:51 1 GM Pantoprazole Sodium (Protonix Tab) 40 mg QAM PO 03/24/17 09:00 04/23/17 08:59 03/28/17 07:38 40 MG Insulin Aspart (novoLOG ASPART) SLIDING SCALE G... ACHS SC 03/23/17 16:00 04/22/17 15:59 03/28/17 11:42 1 UNITS Glucose (Glucose 40% Gel) 15-30 GRAMS 15 GRAMS... UD PRN PO 03/23/17 16:00 04/22/17 15:59 Glucose (Glucose Chew Tab) 4-8 Tablets 4 Tabl... UD PRN PO 03/23/17 16:00 04/22/17 15:59 Dextrose (Dextrose 50% 50ML Syringe) 25-50ML OF 50% DW IV FOR... UD PRN IV 03/23/17 16:00 04/22/17 15:59 Glucagon (Glucagon Inj) 1 mg UD PRN SQ 03/23/17 16:00 04/22/17 15:59 Nystatin (Mycostatin Crm) 1 appln BID EXT 03/23/17 21:00 04/22/17 20:59 03/28/17 07:40 1 APPLN Nystatin (Mycostatin Susp) 5 ml QID PO 03/23/17 17:00 04/02/17 16:59 03/28/17 11:35 5 ML Lidocaine HCl (Xylocaine Jelly 2%) 2 ml PRN PRN EXT 03/24/17 08:00 04/23/17 07:59 03/25/17 07:55 2 ML Finasteride (Proscar Tab) 5 mg QAM PO 03/24/17 09:00 04/23/17 08:59 03/28/17 07:38 5 MG Lorazepam 0.5 mg/ Syringe 0.5 ml @ 0.5 mls/min ONE PRN IV 03/24/17 18:30 04/23/17 18:29 Gadobutrol (Gadavist) 11 mmol UD PRN IV 03/24/17 22:30 03/28/17 22:29 Cephalexin Monohydrate (Keflex Cap) 500 mg BIDM PO 03/25/17 17:00 04/02/17 16:59 03/28/17 07:37 500 MG Olmesartan (Benicar Tab) 20 mg DAILY PO 03/26/17 09:00 04/25/17 08:59 03/28/17 07:40 20 MG Hydrochlorothiazide (Hydrochlorothiazide Tab) 12.5 mg DAILY PO 03/26/17 09:00 04/25/17 08:59 03/28/17 07:38 12.5 MG Objective Vital Signs Date Time Temp Pulse Resp B/P (MAP) Pulse Ox O2 Delivery O2 Flow Rate FiO2 03/28/17 15:30 36.8 65 20 122/66 (84) 94 Room Air 03/28/17 12:00 Room Air 03/28/17 08:00 Room Air 03/28/17 07:21 36.9 64 20 184/84 (117) 93 Room Air 03/28/17 00:00 Room Air 03/27/17 23:18 36.4 82 20 128/62 (84) 90 4.0 Physical Exam General Appearance: no apparent distress, + obese Eyes: normal inspection, EOMI, sclerae normal ENT: normal ENT inspection, hearing grossly normal, pharynx normal Neck: supple, no adenopathy, no JVD, trachea midline Respiratory/Chest: chest non-tender, no respiratory distress, no accessory muscle use, + decreased breath sounds (bases) Cardiovascular: regular rate, rhythm, no edema, no gallop, no JVD, no murmur Abdomen: normal bowel sounds, non tender, soft, no organomegaly Extremities: normal range of motion, normal inspection, no pedal edema, no calf tenderness, pelvis stable, + pertinent finding (left elbow tender to palpation) Neurologic/Psychiatric: 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 Pt originally hypotensive on arrival which resolved after receiving a 500 cc fluid bolus. Pt afebrile, and VSS. WBC 15.71. Creatinine elevated above baseline at 2.00. Head CT, C-spine CT, CXR, humerus x-ray, hand/forearm x-ray all negative. 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, neg for sig carotid stenosis -Echo with EF 55-60%, neg for structural issues -Fasting lipid panel WNL -HgbA1c elevated at 7.6 -Continue Plavix, statin, beta zainab -PT/OT recs for rehab, needs authorization Sepsis likely secondary to UTI in setting of [place] catheter, h/o urinary retention, balanitis -Hypotension resolved with fluid bolus - stopped IV fluids -Lactic acid WNL -Urine and blood cultures neg -Empiric Rocephin 1 gm IV qd, tolerating switch to keflex -Nystatin cream to penis continued -Urology consulted, appreciate recs, planning outpt cystoscopy after hays x7 days which would be 03/31, will repeat PSA testing at f/u [facility]IEN on CKD stage III--only other recorded creatinine at 1.6 - Cr was 2.0 on admission, improved with IV fluids that are now stopped - Benicar resumed ?? 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 RESEARCH TECHNOLOGIST--will check records but does not believe there were irregularities on rectal exam last week Apparently pt followed at some point with [facility] PSA elevated 03/18, planning to follow given BPH and retention c-scope in the last year neg per family MRI abd with benign renal lesions SPEP, UPEP, free light chains, and LDH pending for multiple myeloma, family is aware that these are send out labs and will likely need to f/u with hem/once for results discussed again with patient and 03/28 that these need follow up Ca is WNL Diabetes mellitus type 2--A1c 7.6 -Hold glipizide and Januvia while admitted -Insulin sliding scale -Check BSGs q ac and qhs -Check HgbA1c - 7.6 HTN-- stable, continue Benicar and Lopressor HLD -Continue Crestor 5 mg PO qd Hypothyroidism -Continue Synthroid 150 mcg PO qd BPH -Continue alfuzosin 10 mg PO qd Anxiety and depression -Continue Zoloft 100 mg PO qd and Librium 5 mg PO qhs DVT prophylaxis -Heparin 5000 units SC q8h -ZEB hose and SCDs Code Status -Level I, FULL RESUSCITATION STATUS try for [facility] on 03/30 Continued [facility] stay due to: voiding difficulties, ambulation difficulties
[2017-03-29] MEDS: ACETAMINOPHEN 325 MG TAB PO PRN (13:47)
[2017-03-29 14:58] LABS: ALBUMIN % 52.53 %; ALPHA-2-GLOBULIN % 13.48 %; BETA GLOBULIN % 14.89 %; CREATININE UR 61 MG/DL (20-370); GAMMA GLOBULIN % 12.03 %
--- NOTE | 2017-03-29 15:25 | Progress Note ---
Subjective Date of Service: Mar 29, 2017. Subjective Pt evaluation today including: conversation w/ patient, conversation w/ family ( at bedside), physical exam, lab review, review of inpatient medication list Pain: no pain PO Intake: adequate Voiding: hays catheter in place patient tired this afternoon, was up in chair most of the day no chest pain, shortness of breath moved bowels yesterday per he has some mild confusion, seeing red spots on ceiling intermittently discussed going to rehab, awaiting insurance authorization discussed hays, 7 days would be tomorrow so will perform another TOV in the AM no penile pain, balanitis adequately treated Problem List Medical Problems: (1) Change in mental status Status: Acute (2) Hypotension Status: Acute (3) Symptoms of urinary tract infection Status: Acute (4) UTI (urinary tract infection) Status: Acute Review of Systems Constitutional: + weakness, + fatigue Neurologic: + weakness, + balance problems All Other Systems: Reviewed and Negative Medications Current Inpatient Medications Medications (Trade) Dose Ordered Sig/Sulema Route Start Time Stop Time Status Last Admin Dose Admin Heparin Sodium (Porcine) (Heparin Sq 5000 Unit/0.5ml) 5,000 unit Q8 SQ 03/23/17 22:00 04/22/17 21:59 03/29/17 13:58 5,000 UNIT Acetaminophen (Tylenol Tab) 650 mg Q4H PRN PO 03/23/17 15:45 04/22/17 15:44 03/29/17 13:47 650 MG Al Hydrox/Mg Hydrox/Simethicone (Maalox Max Susp) 15 ml Q4H PRN PO 03/23/17 15:45 04/22/17 15:44 Magnesium Hydroxide (Milk Of Magnesia Susp) 30 ml Q12H PRN PO 03/23/17 15:45 04/22/17 15:44 Ondansetron HCl (Zofran Inj) 4 mg Q6H PRN IV 03/23/17 15:45 04/22/17 15:44 Polyethylene (Miralax Powder Packet) 17 gm DAILY PRN PO 03/23/17 15:45 04/22/17 15:44 Alfuzosin HCl (Uroxatral Tab) 10 mg DAILY PO 03/24/17 09:00 04/23/17 08:59 03/29/17 08:33 10 MG Chlordiazepoxide (Librium Cap) 5 mg TID PO 03/23/17 21:00 04/22/17 20:59 03/29/17 13:47 5 MG Clopidogrel Bisulfate (plAVix TAB) 75 mg DAILY PO 03/24/17 09:00 04/23/17 08:59 03/29/17 08:36 75 MG Isosorbide Mononitrate (Imdur Ext Rel Tab) 30 mg DAILY PO 03/24/17 09:00 04/23/17 08:59 03/29/17 08:34 30 MG Levothyroxine Sodium (Synthroid Tab) 150 mcg DAILYBB PO 03/24/17 06:30 04/23/17 06:59 03/29/17 05:52 150 MCG Metoprolol Tartrate (Lopressor Tab) 25 mg BID PO 03/23/17 21:00 04/22/17 20:59 03/29/17 08:34 25 MG Multivitamins/ Minerals (Multivitamin W/ Minerals Tab) 1 tab DAILY PO 03/24/17 09:00 04/23/17 08:59 03/29/17 08:37 1 TAB Rosuvastatin Calcium (Crestor Tab) 5 mg DAILY PO 03/24/17 09:00 04/23/17 08:59 03/29/17 08:34 5 MG Sertraline HCl (Zoloft Tab) 100 mg DAILY PO 03/24/17 09:00 04/23/17 08:59 03/29/17 08:33 100 MG Sucralfate (Carafate Tab) 1 gm TID PO 03/23/17 21:00 04/22/17 20:59 03/29/17 13:47 1 GM Pantoprazole Sodium (Protonix Tab) 40 mg QAM PO 03/24/17 09:00 04/23/17 08:59 03/29/17 08:37 40 MG Insulin Aspart (novoLOG ASPART) SLIDING SCALE G... ACHS SC 03/23/17 16:00 04/22/17 15:59 03/29/17 12:06 2 UNITS Glucose (Glucose 40% Gel) 15-30 GRAMS 15 GRAMS... UD PRN PO 03/23/17 16:00 04/22/17 15:59 Glucose (Glucose Chew Tab) 4-8 Tablets 4 Tabl... UD PRN PO 03/23/17 16:00 04/22/17 15:59 Dextrose (Dextrose 50% 50ML Syringe) 25-50ML OF 50% DW IV FOR... UD PRN IV 03/23/17 16:00 04/22/17 15:59 Glucagon (Glucagon Inj) 1 mg UD PRN SQ 03/23/17 16:00 04/22/17 15:59 Nystatin (Mycostatin Crm) 1 appln BID EXT 03/23/17 21:00 04/22/17 20:59 03/29/17 08:59 1 APPLN Nystatin (Mycostatin Susp) 5 ml QID PO 03/23/17 17:00 04/02/17 16:59 03/29/17 12:08 5 ML Lidocaine HCl (Xylocaine Jelly 2%) 2 ml PRN PRN EXT 03/24/17 08:00 04/23/17 07:59 03/25/17 07:55 2 ML Finasteride (Proscar Tab) 5 mg QAM PO 03/24/17 09:00 04/23/17 08:59 03/29/17 08:33 5 MG Lorazepam 0.5 mg/ Syringe 0.5 ml @ 0.5 mls/min ONE PRN IV 03/24/17 18:30 04/23/17 18:29 Cephalexin Monohydrate (Keflex Cap) 500 mg BIDM PO 03/25/17 17:00 04/02/17 16:59 03/29/17 08:34 500 MG Olmesartan (Benicar Tab) 20 mg DAILY PO 03/26/17 09:00 04/25/17 08:59 03/29/17 08:35 20 MG Hydrochlorothiazide (Hydrochlorothiazide Tab) 12.5 mg DAILY PO 03/26/17 09:00 04/25/17 08:59 03/29/17 08:35 12.5 MG Objective Vital Signs Date Time Temp Pulse Resp B/P (MAP) Pulse Ox O2 Delivery O2 Flow Rate FiO2 03/29/17 09:39 Room Air 03/29/17 07:55 60 186/81 (116) 03/29/17 07:44 36.4 57 20 179/85 (116) 92 Room Air 03/29/17 00:00 Room Air 03/28/17 23:25 36.6 65 20 172/73 (106) 94 Room Air 03/28/17 19:36 36.7 68 20 144/75 (98) 95 Room Air 03/28/17 16:00 Nasal Cannula 03/28/17 15:30 36.8 65 20 122/66 (84) 94 Room Air Physical Exam General Appearance: no apparent distress, + obese Eyes: normal inspection, EOMI, sclerae normal Neck: supple, no adenopathy, no JVD, trachea midline Respiratory/Chest: chest non-tender, lungs clear, normal breath sounds, no respiratory distress, no accessory muscle use Cardiovascular: regular rate, rhythm, no edema, no gallop, no JVD, no murmur Abdomen: normal bowel sounds, non tender, soft, no organomegaly Extremities: normal range of motion, non-tender, normal inspection, no pedal edema, no calf tenderness, normal capillary refill, pelvis stable Neurologic/Psychiatric: 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 tested, normal mood/affect, oriented x 3, + abnormal gait, + motor weakness Skin: normal color, warm/dry, no rash Laboratory Results Last 24 Hours Test 03/28/17 16:21 03/28/17 20:04 03/29/17 05:40 03/29/17 07:35 Bedside Glucose 181 mg/dl 196 mg/dl 131 mg/dl White Blood Count 11.98 K/uL Red Blood Count 4.09 M/uL Hemoglobin 12.2 g/dL Hematocrit 35.4 % Mean Corpuscular Volume 86.6 fL Mean Corpuscular Hemoglobin 29.8 pg Mean Corpuscular Hemoglobin Concent 34.5 g/dl RDW Standard Deviation 37.2 fL RDW Coefficient of Variation 11.8 % Platelet Count 289 K/uL Mean Platelet Volume 8.3 fL Test 03/29/17 11:34 Bedside Glucose 232 mg/dl Assessment and Plan 86 y/o male with a history of DM II, HTN, HLD, CKD stage III, hypothyroidism, BPH, anxiety and depression, and PUD who presented to the ED on 03/23 with weakness, confusion, and pain in the penis. Pt originally hypotensive on arrival which resolved after receiving a 500 cc fluid bolus. Pt afebrile, and VSS. WBC 15.71. Creatinine elevated above baseline at 2.00. Head CT, C-spine CT, CXR, humerus x-ray, hand/forearm x-ray all negative. 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 -MRI brain without contrast neg for acute stroke -MRA head and neck with stenosis of b/l vertebral arteries, neg for sig carotid stenosis -Echo with EF 55-60%, neg for structural issues -Fasting lipid panel WNL -HgbA1c elevated at 7.6 -Continue Plavix, statin, beta zainab -PT/OT recs for rehab, needs authorization - mental status is much improved Sepsis likely secondary to UTI in setting of Hays catheter, h/o urinary retention, balanitis -Hypotension resolved with fluid bolus -Urine and blood cultures neg -Empiric Rocephin 1 gm IV qd, tolerating switch to keflex, complete 14 days total -Nystatin cream to penis continued -Urology consulted, appreciate recs, planning outpt cystoscopy - will perform TOV tomorrow (7 days) to see if we can d/c without hays on Uroxatrol and Finasteride to treat prostate DAMIEN on CKD stage III--only other recorded creatinine at 1.6 - Cr was 2.0 on admission, improved with IV fluids that are now stopped - Benicar resumed ?? 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 [employer]--will check records but does not believe there were irregularities on rectal exam last week Apparently pt followed at some point with [facility] PSA elevated 03/18, planning to follow given BPH and retention c-scope in the last year neg per family MRI abd with benign renal lesions SPEP, UPEP, free light chains, and LDH - lambda/kappa ration normal, interpretation of electrophoresis = acute phase reaction, not consistent with MM Ca is WNL Diabetes mellitus type 2--A1c 7.6 -Hold glipizide and Januvia while admitted -Insulin sliding scale -Check BSGs q ac and qhs -Check HgbA1c - 7.6 HTN-- stable, continue Benicar and Lopressor HLD -Continue Crestor 5 mg PO qd Hypothyroidism -Continue Synthroid 150 mcg PO qd BPH -Continue alfuzosin 10 mg PO qd Anxiety and depression -Continue Zoloft 100 mg PO qd and Librium 5 mg PO qhs DVT prophylaxis -Heparin 5000 units SC q8h -ZEB biggs and SCDs Code Status -Level I, FULL RESUSCITATION STATUS try for [facility] on 03/30 TOV in the AM to see if he can go without hays Continued [facility] stay due to: voiding difficulties, ambulation difficulties
[2017-03-29 15:38] VITALS: BP 147/81; PULSE 62; TEMP 36.5; O2SAT 92
[2017-03-29 16:00] VITALS: O2SAT 92
[2017-03-29 23:43] VITALS: BP_SYST 178; BP_SYST 186; BP_DIAS 74; BP_DIAS 82; PULSE 58; PULSE 61; TEMP 36.6; TEMP 36.7; O2SAT 90; O2SAT 96
[2017-03-29 23:55] VITALS: BP 181/87; PULSE 59
[2017-03-30 05:04] VITALS: BP 181/94; PULSE 61; TEMP 36.7; O2SAT 95
[2017-03-30] MEDS: LEVOTHYROXINE 150 MCG TAB PO SCH (05:51)
[2017-03-30] MEDS: HEPARIN SOD 5000 UNIT/0.5 ML CARP SQ SCH ×3 (05:54→20:42)
[2017-03-30 07:33] VITALS: BP 169/78; PULSE 62; TEMP 36.9; O2SAT 95
[2017-03-30] MEDS: INSULIN ASPART 100 UNITS/ML 3 ML PEN SC SCH ×4 (07:46→20:42)
[2017-03-30] MEDS: CLOPIDOGREL BISULFATE 75 MG TAB PO SCH (08:03)
[2017-03-30] MEDS: CEROVITE ADV FORMULA TAB PO SCH (08:04)
[2017-03-30] MEDS: NYSTATIN SUSP 500,000 U/5 ML UDC PO SCH ×4 (08:04→20:42)
[2017-03-30] MEDS: METOPROLOL TARTRATE 25 MG TAB PO SCH ×2 (08:04→20:42)
[2017-03-30] MEDS: PANTOprazole SOD 40 MG TAB PO SCH (08:04)
[2017-03-30] MEDS: ISOSORBIDE MONONITRATE 30 MG TABCR PO SCH (08:04)
[2017-03-30] MEDS: HYDROCHLOROTHIAZIDE 25 MG TAB PO SCH (08:05)
[2017-03-30] MEDS: SERTRALINE HCL 100 MG TAB PO SCH (08:05)
[2017-03-30] MEDS: OLMESARTAN MEDOXOMIL 20 MG TAB PO SCH (08:06)
[2017-03-30] MEDS: ROSUVASTATIN CALCIUM 5 MG TAB PO SCH (08:07)
[2017-03-30] MEDS: SUCRALFATE 1 GM TAB PO SCH ×3 (08:07→20:42)
[2017-03-30] MEDS: CEPHALEXIN MONOHYDRATE 500 MG CAP PO SCH ×2 (08:07→17:17)
[2017-03-30] MEDS: NYSTATIN CR 15 GM TUBE EXT SCH ×2 (08:08→20:43)
[2017-03-30] MEDS: FINASTERIDE 5 MG TAB PO SCH (08:08)
[2017-03-30] MEDS: ALFUZosin TAB 10 MG TAB PO SCH (08:09)
[2017-03-30] MEDS: CHLORDIAZEPOXIDE 5 MG CAP PO SCH ×3 (08:13→20:42)
[2017-03-30 08:36] VITALS: O2SAT 95
--- NOTE | 2017-03-30 09:51 | Progress Note ---
Subjective Date of Service: Mar 30, 2017. Subjective Pt evaluation today including: conversation w/ patient, chart review, lab review Voiding: hays catheter in place (patent, draining clear, yellow urine) 86 yo male with BPH and UR. Pt c/o some nausea and a sore, red "bottom" this morning. Hays remains in place. Remains on Uroxatral. Problem List Medical Problems: (1) Change in mental status Status: Acute (2) Hypotension Status: Acute (3) Symptoms of urinary tract infection Status: Acute (4) UTI (urinary tract infection) Status: Acute Review of Systems Constitutional: No fever, No chills Respiratory: No shortness of breath Cardiac: No chest pain Abdomen: + nausea, No pain, No vomiting Male : No hematuria Heme: No abnormal bleeding/bruising Objective Vital Signs Date Time Temp Pulse Resp B/P (MAP) Pulse Ox O2 Delivery O2 Flow Rate FiO2 03/30/17 08:36 95 Room Air 03/30/17 07:33 36.9 62 20 169/78 (108) 95 Room Air 03/30/17 05:04 36.7 61 20 181/94 (123) 95 Room Air 03/30/17 00:00 Room Air 03/29/17 23:55 59 181/87 (118) 03/29/17 23:43 36.7 61 20 186/82 (116) 96 Room Air 03/29/17 16:00 92 Room Air 03/29/17 15:38 36.5 62 18 147/81 (103) 92 Room Air Physical Exam General Appearance: no apparent distress Eyes: normal inspection ENT: hearing grossly normal Neck: no JVD Respiratory/Chest: no respiratory distress, no accessory muscle use Cardiovascular: no JVD Extremities: normal inspection Neurologic/Psychiatric: alert, normal mood/affect, oriented x 3 Skin: normal color Laboratory Results Last 24 Hours Test 03/29/17 11:34 03/29/17 16:33 03/29/17 20:24 03/30/17 07:24 Bedside Glucose 232 mg/dl 154 mg/dl 145 mg/dl 155 mg/dl Assessment and Plan 1. BPH with urinary retention Will attempt a TOV this morning. If pt unable to void, will need hays catheter replaced for now. Continue Uroxatral. 2. Elevated PSA PSA of 5.3 not uncommon in someone of his age group. Also may be slightly elevated from UR. 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 3. Renal lesions MRI confirms benign cysts. 4. Hx of gross hematuria Now resolved. Will keep outpatient cysto as planned to complete evaluation. Continued [facility] stay due to: voiding difficulties, ambulation difficulties
[2017-03-30 10:46] VITALS: BP 126/72; PULSE 70; O2SAT 94
[2017-03-30] MEDS: ACETAMINOPHEN 325 MG TAB PO PRN ×2 (11:43→16:13)
--- NOTE | 2017-03-30 15:15 | Progress Note ---
Subjective Date of Service: Mar 30, 2017. Subjective Pt evaluation today including: conversation w/ patient, conversation w/ family , physical exam, lab review, review of inpatient medication list Pain: no pain PO Intake: adequate Voiding: no voiding problems patient had hays pulled at noon, waiting to void still had a brief choking episode at lunch, currently missing his denture will change diet to chopped since he cannot chew as well denied for [facility], plan for [facility] tomorrow, look for him to void OOB more today, did better with therapy Problem List Medical Problems: (1) Change in mental status Status: Acute (2) Hypotension Status: Acute (3) Symptoms of urinary tract infection Status: Acute (4) UTI (urinary tract infection) Status: Acute Review of Systems Constitutional: + weakness, + fatigue Neurologic: + memory loss, + weakness, + balance problems All Other Systems: Reviewed and Negative Medications Current Inpatient Medications Medications (Trade) Dose Ordered Sig/Sulema Route Start Time Stop Time Status Last Admin Dose Admin Heparin Sodium (Porcine) (Heparin Sq 5000 Unit/0.5ml) 5,000 unit Q8 SQ 03/23/17 22:00 04/22/17 21:59 03/30/17 14:16 5,000 UNIT Acetaminophen (Tylenol Tab) 650 mg Q4H PRN PO 03/23/17 15:45 04/22/17 15:44 03/30/17 11:43 650 MG Al Hydrox/Mg Hydrox/Simethicone (Maalox Max Susp) 15 ml Q4H PRN PO 03/23/17 15:45 04/22/17 15:44 Magnesium Hydroxide (Milk Of Magnesia Susp) 30 ml Q12H PRN PO 03/23/17 15:45 04/22/17 15:44 Ondansetron HCl (Zofran Inj) 4 mg Q6H PRN IV 03/23/17 15:45 04/22/17 15:44 Polyethylene (Miralax Powder Packet) 17 gm DAILY PRN PO 03/23/17 15:45 04/22/17 15:44 Alfuzosin HCl (Uroxatral Tab) 10 mg DAILY PO 03/24/17 09:00 04/23/17 08:59 03/30/17 08:09 10 MG Chlordiazepoxide (Librium Cap) 5 mg TID PO 03/23/17 21:00 04/22/17 20:59 03/30/17 14:21 5 MG Clopidogrel Bisulfate (plAVix TAB) 75 mg DAILY PO 03/24/17 09:00 04/23/17 08:59 03/30/17 08:03 75 MG Isosorbide Mononitrate (Imdur Ext Rel Tab) 30 mg DAILY PO 03/24/17 09:00 04/23/17 08:59 03/30/17 08:04 30 MG Levothyroxine Sodium (Synthroid Tab) 150 mcg DAILYBB PO 03/24/17 06:30 04/23/17 06:59 03/30/17 05:51 150 MCG Metoprolol Tartrate (Lopressor Tab) 25 mg BID PO 03/23/17 21:00 04/22/17 20:59 03/30/17 08:04 25 MG Multivitamins/ Minerals (Multivitamin W/ Minerals Tab) 1 tab DAILY PO 03/24/17 09:00 04/23/17 08:59 03/30/17 08:04 1 TAB Rosuvastatin Calcium (Crestor Tab) 5 mg DAILY PO 03/24/17 09:00 04/23/17 08:59 03/30/17 08:07 5 MG Sertraline HCl (Zoloft Tab) 100 mg DAILY PO 03/24/17 09:00 04/23/17 08:59 03/30/17 08:05 100 MG Sucralfate (Carafate Tab) 1 gm TID PO 03/23/17 21:00 04/22/17 20:59 03/30/17 14:16 1 GM Pantoprazole Sodium (Protonix Tab) 40 mg QAM PO 03/24/17 09:00 04/23/17 08:59 03/30/17 08:04 40 MG Insulin Aspart (novoLOG ASPART) SLIDING SCALE G... ACHS SC 03/23/17 16:00 04/22/17 15:59 03/29/17 12:06 2 UNITS Glucose (Glucose 40% Gel) 15-30 GRAMS 15 GRAMS... UD PRN PO 03/23/17 16:00 04/22/17 15:59 Glucose (Glucose Chew Tab) 4-8 Tablets 4 Tabl... UD PRN PO 03/23/17 16:00 04/22/17 15:59 Dextrose (Dextrose 50% 50ML Syringe) 25-50ML OF 50% DW IV FOR... UD PRN IV 03/23/17 16:00 04/22/17 15:59 Glucagon (Glucagon Inj) 1 mg UD PRN SQ 03/23/17 16:00 04/22/17 15:59 Nystatin (Mycostatin Crm) 1 appln BID EXT 03/23/17 21:00 04/22/17 20:59 03/30/17 08:08 1 APPLN Nystatin (Mycostatin Susp) 5 ml QID PO 03/23/17 17:00 04/02/17 16:59 03/30/17 08:04 5 ML Lidocaine HCl (Xylocaine Jelly 2%) 2 ml PRN PRN EXT 03/24/17 08:00 04/23/17 07:59 03/25/17 07:55 2 ML Finasteride (Proscar Tab) 5 mg QAM PO 03/24/17 09:00 04/23/17 08:59 03/30/17 08:08 5 MG Lorazepam 0.5 mg/ Syringe 0.5 ml @ 0.5 mls/min ONE PRN IV 03/24/17 18:30 04/23/17 18:29 Cephalexin Monohydrate (Keflex Cap) 500 mg BIDM PO 03/25/17 17:00 04/02/17 16:59 03/30/17 08:07 500 MG Olmesartan (Benicar Tab) 20 mg DAILY PO 03/26/17 09:00 04/25/17 08:59 03/30/17 08:06 20 MG Hydrochlorothiazide (Hydrochlorothiazide Tab) 12.5 mg DAILY PO 03/26/17 09:00 04/25/17 08:59 03/30/17 08:05 12.5 MG Objective Vital Signs Date Time Temp Pulse Resp B/P (MAP) Pulse Ox O2 Delivery O2 Flow Rate FiO2 03/30/17 10:46 70 94 03/30/17 08:36 95 Room Air 03/30/17 07:33 36.9 62 20 169/78 (108) 95 Room Air 03/30/17 05:04 36.7 61 20 181/94 (123) 95 Room Air 03/30/17 00:00 Room Air 03/29/17 23:55 59 181/87 (118) 03/29/17 23:43 36.7 61 20 186/82 (116) 96 Room Air 03/29/17 16:00 92 Room Air 03/29/17 15:38 36.5 62 18 147/81 (103) 92 Room Air Physical Exam General Appearance: no apparent distress, + obese Eyes: normal inspection, EOMI, sclerae normal Neck: supple, no adenopathy, no JVD, trachea midline Respiratory/Chest: chest non-tender, lungs clear, normal breath sounds, no respiratory distress, no accessory muscle use Cardiovascular: regular rate, rhythm, no edema, no gallop, no JVD, no murmur Abdomen: normal bowel sounds, non tender, soft, no organomegaly Extremities: normal range of motion, non-tender, normal inspection, no pedal edema, no calf tenderness 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 Pt originally hypotensive on arrival which resolved after receiving a 500 cc fluid bolus. Pt afebrile, and VSS. WBC 15.71. Creatinine elevated above baseline at 2.00. Head CT, C-spine CT, CXR, humerus x-ray, hand/forearm x-ray all negative. 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 -MRI brain without contrast neg for acute stroke -MRA head and neck with stenosis of b/l vertebral arteries, neg for sig carotid stenosis -Echo with EF 55-60%, neg for structural issues -Fasting lipid panel WNL -HgbA1c elevated at 7.6 -Continue Plavix, statin, beta zainab -PT/OT recs for rehab, plan for [facility] tomorrow - mental status is much improved Sepsis likely secondary to UTI in setting of Hays catheter, h/o urinary retention, balanitis -Hypotension resolved with fluid bolus -Urine and blood cultures neg -Empiric Rocephin 1 gm IV qd, tolerating switch to keflex, complete 14 days total -Nystatin cream to penis continued, less pain, skin clearing up -Urology consulted, appreciate recs, planning outpt cystoscopy - hays pulled today, still waiting to void, hopeful that he will not require another hays placement on Uroxatrol and Finasteride to treat prostate DAMIEN on CKD stage III--only other recorded creatinine at 1.6 - Cr was 2.0 on admission, improved with IV fluids that are now stopped - Benicar resumed ?? 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 records but does not believe there were irregularities on rectal exam last week Apparently pt followed at some point with [facility] PSA elevated 03/18, planning to follow given BPH and retention c-scope in the last year neg per family MRI abd with benign renal lesions SPEP, UPEP, free light chains, and LDH - lambda/kappa ration normal, interpretation of electrophoresis = acute phase reaction, not consistent with MM Ca is WNL Diabetes mellitus type 2--A1c 7.6 -Hold glipizide and Januvia while admitted -Insulin sliding scale -Check BSGs q ac and qhs -Check HgbA1c - 7.6 HTN-- stable, continue Benicar and Lopressor HLD -Continue Crestor 5 mg PO qd Hypothyroidism -Continue Synthroid 150 mcg PO qd BPH -Continue alfuzosin 10 mg PO qd Anxiety and depression -Continue Zoloft 100 mg PO qd and Librium 5 mg PO qhs DVT prophylaxis -Heparin 5000 units SC q8h -ZEB biggs and SCDs Code Status -Level I, FULL RESUSCITATION STATUS plan for [facility] tomorrow, look for patient to void Continued [facility] stay due to: voiding difficulties, ambulation difficulties
[2017-03-30 15:50] VITALS: BP 117/72; PULSE 74; TEMP 36.8; O2SAT 95
[2017-03-30 23:40] VITALS: BP 165/70; PULSE 83; TEMP 36.5; O2SAT 94
[2017-03-31] MEDS: LEVOTHYROXINE 150 MCG TAB PO SCH (05:52)
[2017-03-31] MEDS: HEPARIN SOD 5000 UNIT/0.5 ML CARP SQ SCH ×3 (05:54→21:37)
--- NOTE | 2017-03-31 07:50 | Progress Note ---
Subjective Date of Service: Mar 31, 2017. Subjective Pt evaluation today including: conversation w/ patient, chart review 86 yo male with gross hematuria and UR. Fraser catheter removed yesterday. Pt voiding some on own. Pt sleeping this morning. Difficult to arouse, but does say he feels OK. Son in room to discuss care with this morning. Problem List Medical Problems: (1) Change in mental status Status: Acute (2) Hypotension Status: Acute (3) Symptoms of urinary tract infection Status: Acute (4) UTI (urinary tract infection) Status: Acute Review of Systems Pt sleeping this morning and unable to stay awake to answer my questions this morning. Objective Vital Signs Date Time Temp Pulse Resp B/P (MAP) Pulse Ox O2 Delivery O2 Flow Rate FiO2 03/31/17 00:00 Room Air 03/30/17 23:40 36.5 83 16 165/70 (101) 94 Room Air 03/30/17 16:31 Room Air 03/30/17 15:50 36.8 74 20 117/72 (87) 95 Room Air 03/30/17 10:46 70 94 03/30/17 08:36 95 Room Air Physical Exam General Appearance: no apparent distress Eyes: normal inspection ENT: hearing grossly normal Neck: no JVD Respiratory/Chest: no respiratory distress, no accessory muscle use Cardiovascular: no JVD Extremities: normal inspection Neurologic/Psychiatric: alert, normal mood/affect, oriented x 3 Skin: normal color Laboratory Results Last 24 Hours Test 03/30/17 11:34 03/30/17 16:27 03/30/17 20:07 Bedside Glucose 197 mg/dl 182 mg/dl 203 mg/dl Assessment and Plan 1. BPH with urinary retention Pt currently voiding on own. Recommend checking bladder scans qshift. Straight cath if PVR >250ml. Continue Uroxatral. 2. Elevated PSA PSA of 5.3 not uncommon in someone of his age group. Also may be slightly elevated from UR. 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 3. Renal lesions MRI confirms benign cysts. 4. Hx of gross hematuria Now resolved. Will keep outpatient cysto as planned to complete evaluation. Pt OK for [facility] from [facility]. Outpatient cysto scheduled with Dr. Willett on 04-11 at 0900. Continued [facility] stay due to: voiding difficulties, ambulation difficulties
[2017-03-31 07:55] VITALS: BP 164/84; PULSE 61; TEMP 36.8; O2SAT 95
[2017-03-31] MEDS: METOPROLOL TARTRATE 25 MG TAB PO SCH ×2 (08:28→21:26)
[2017-03-31] MEDS: CLOPIDOGREL BISULFATE 75 MG TAB PO SCH (08:28)
[2017-03-31] MEDS: ISOSORBIDE MONONITRATE 30 MG TABCR PO SCH (08:28)
[2017-03-31] MEDS: HYDROCHLOROTHIAZIDE 25 MG TAB PO SCH (08:29)
[2017-03-31] MEDS: OLMESARTAN MEDOXOMIL 20 MG TAB PO SCH (08:29)
[2017-03-31] MEDS: CEROVITE ADV FORMULA TAB PO SCH (08:30)
[2017-03-31] MEDS: FINASTERIDE 5 MG TAB PO SCH (08:30)
[2017-03-31] MEDS: ROSUVASTATIN CALCIUM 5 MG TAB PO SCH (08:30)
[2017-03-31] MEDS: CEPHALEXIN MONOHYDRATE 500 MG CAP PO SCH ×2 (08:30→17:46)
[2017-03-31] MEDS: ALFUZosin TAB 10 MG TAB PO SCH (08:30)
[2017-03-31] MEDS: PANTOprazole SOD 40 MG TAB PO SCH (08:30)
[2017-03-31] MEDS: SUCRALFATE 1 GM TAB PO SCH ×3 (08:30→21:26)
[2017-03-31] MEDS: SERTRALINE HCL 100 MG TAB PO SCH (08:30)
[2017-03-31] MEDS: NYSTATIN SUSP 500,000 U/5 ML UDC PO SCH ×4 (08:31→21:26)
[2017-03-31] MEDS: INSULIN ASPART 100 UNITS/ML 3 ML PEN SC SCH ×4 (08:31→21:37)
[2017-03-31] MEDS: CHLORDIAZEPOXIDE 5 MG CAP PO SCH ×3 (09:15→21:32)
[2017-03-31 11:20] LABS: BUN/CREATININE RATIO 18.4 (10-20); CALCIUM 9.8 mg/dl (8.5-10.1); CREATININE 1.5 mg/dl (0.60-1.40); POTASSIUM 3.7 mmol/L (3.5-5.1)
[2017-03-31] MEDS: NYSTATIN CR 15 GM TUBE EXT SCH ×2 (11:21→21:25)
--- NOTE | 2017-03-31 12:01 | Neurology Consultation ---
Neurology Consultation Date of Consultation: Mar 31, 2017. Attending Physician: Steve Flowers D.O. Primary Care Physician: Will Barber M.D. Reason for Consultation: Patient is an 86-year-old, who was asked to see the request of Dr. Flowers, for neurologic consultation regarding abnormal cognitive function and other issues. History of Present Illness Source: patient, caregiver, hospital records This patient has a long-standing history of joint issues with multiple total knee replacements and chronic back and hip issues. He has a history of diabetes and hypertension. He has no history of stroke that he is aware. Patient was brought into the emergency room on March 23 weakness, confusion, dragging his feet, low back pain, and night sweats with increased cough. The patient had fallen earlier this year and injured his left arm. At 1212 hours, temperature was 36.7, pulse 78, respiratory 20, blood pressure 92 /51. CT scan of the head showed generalized atrophy and no acute changes. CT scan of the cervical spine was unremarkable. Currently he denies headache or pain except in his left hip and knee. He has some numbness in the left upper arm where he fell. He knows he is not walking well. He does not have lightheadedness or dizziness. MRI of the brain showed marked atrophy in general. There was moderate old small vessel ischemic changes as well. There were no acute findings. 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 MR angiography of the head and neck revealed no evidence of carotid stenosis and a small right vertebral, small left vertebral, and small basilar artery. There is likely stenosis present. CBC showed some mild anemia. Chem profile was unremarkable. Lipid profile was unremarkable. Hemoglobin A1c was 7.6. TSH and magnesium were unremarkable. Past Medical/Surgical History Medical Problems: (1) Change in mental status Status: Acute (2) Hypotension Status: Acute (3) Symptoms of urinary tract infection Status: Acute (4) UTI (urinary tract infection) Status: Acute Diabetes Hypertension History of benign prostatic hypertrophy, with a PSA of 5.3, and urinary retention, followed closely by urology Anxiety depression Hypothyroidism Postcholecystectomy Post bilateral knee replacements and arthroscopic surgery right shoulder Family History Mother at 79 of an PA. Father age 81 of an PA. Social History Patient was never a cigarette smoker. He does not consume alcohol. 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 Smoking Status: Never smoker Smokeless Tobacco Use: No Alcohol Use: none Drug Use: none Marital Status: Housing Status: lives with significant other Occupation Status: retired Allergies Coded Allergies: Aspirin (Verified Adverse Reaction, Unknown, SENSITIVE STOMACH, 03/16/17) No Known Allergies (Verified , 12/25/09) Current Inpatient Medications Current Inpatient Medications Medications (Trade) Dose Ordered Sig/Sulema Route Start Time Stop Time Status Last Admin Dose Admin Heparin Sodium (Porcine) (Heparin Sq 5000 Unit/0.5ml) 5,000 unit Q8 SQ 03/23/17 22:00 04/22/17 21:59 03/31/17 05:54 5,000 UNIT Acetaminophen (Tylenol Tab) 650 mg Q4H PRN PO 03/23/17 15:45 04/22/17 15:44 03/30/17 16:13 650 MG Al Hydrox/Mg Hydrox/Simethicone (Maalox Max Susp) 15 ml Q4H PRN PO 03/23/17 15:45 04/22/17 15:44 Magnesium Hydroxide (Milk Of Magnesia Susp) 30 ml Q12H PRN PO 03/23/17 15:45 04/22/17 15:44 Ondansetron HCl (Zofran Inj) 4 mg Q6H PRN IV 03/23/17 15:45 04/22/17 15:44 Polyethylene (Miralax Powder Packet) 17 gm DAILY PRN PO 03/23/17 15:45 04/22/17 15:44 Alfuzosin HCl (Uroxatral Tab) 10 mg DAILY PO 03/24/17 09:00 04/23/17 08:59 03/31/17 08:30 10 MG Chlordiazepoxide (Librium Cap) 5 mg TID PO 03/23/17 21:00 04/22/17 20:59 03/31/17 09:15 5 MG Clopidogrel Bisulfate (plAVix TAB) 75 mg DAILY PO 03/24/17 09:00 04/23/17 08:59 03/31/17 08:28 75 MG Isosorbide Mononitrate (Imdur Ext Rel Tab) 30 mg DAILY PO 03/24/17 09:00 04/23/17 08:59 03/31/17 08:28 30 MG Levothyroxine Sodium (Synthroid Tab) 150 mcg DAILYBB PO 03/24/17 06:30 04/23/17 06:59 03/31/17 05:52 150 MCG Metoprolol Tartrate (Lopressor Tab) 25 mg BID PO 03/23/17 21:00 04/22/17 20:59 03/31/17 08:28 25 MG Multivitamins/ Minerals (Multivitamin W/ Minerals Tab) 1 tab DAILY PO 03/24/17 09:00 04/23/17 08:59 03/31/17 08:30 1 TAB Rosuvastatin Calcium (Crestor Tab) 5 mg DAILY PO 03/24/17 09:00 04/23/17 08:59 03/31/17 08:30 5 MG Sertraline HCl (Zoloft Tab) 100 mg DAILY PO 03/24/17 09:00 04/23/17 08:59 03/31/17 08:30 100 MG Sucralfate (Carafate Tab) 1 gm TID PO 03/23/17 21:00 04/22/17 20:59 03/31/17 08:30 1 GM Pantoprazole Sodium (Protonix Tab) 40 mg QAM PO 03/24/17 09:00 04/23/17 08:59 03/31/17 08:30 40 MG Insulin Aspart (novoLOG ASPART) SLIDING SCALE G... ACHS SC 03/23/17 16:00 04/22/17 15:59 03/31/17 11:22 2 UNITS Glucose (Glucose 40% Gel) 15-30 GRAMS 15 GRAMS... UD PRN PO 03/23/17 16:00 04/22/17 15:59 Glucose (Glucose Chew Tab) 4-8 Tablets 4 Tabl... UD PRN PO 03/23/17 16:00 04/22/17 15:59 Dextrose (Dextrose 50% 50ML Syringe) 25-50ML OF 50% DW IV FOR... UD PRN IV 03/23/17 16:00 04/22/17 15:59 Glucagon (Glucagon Inj) 1 mg UD PRN SQ 03/23/17 16:00 04/22/17 15:59 Nystatin (Mycostatin Crm) 1 appln BID EXT 03/23/17 21:00 04/22/17 20:59 03/31/17 11:21 1 APPLN Nystatin (Mycostatin Susp) 5 ml QID PO 03/23/17 17:00 04/02/17 16:59 03/31/17 08:31 5 ML Lidocaine HCl (Xylocaine Jelly 2%) 2 ml PRN PRN EXT 03/24/17 08:00 04/23/17 07:59 03/25/17 07:55 2 ML Finasteride (Proscar Tab) 5 mg QAM PO 03/24/17 09:00 04/23/17 08:59 03/31/17 08:30 5 MG Lorazepam 0.5 mg/ Syringe 0.5 ml @ 0.5 mls/min ONE PRN IV 03/24/17 18:30 04/23/17 18:29 Cephalexin Monohydrate (Keflex Cap) 500 mg BIDM PO 03/25/17 17:00 04/02/17 16:59 03/31/17 08:30 500 MG Olmesartan (Benicar Tab) 20 mg DAILY PO 03/26/17 09:00 04/25/17 08:59 03/31/17 08:29 20 MG Hydrochlorothiazide (Hydrochlorothiazide Tab) 12.5 mg DAILY PO 03/26/17 09:00 04/25/17 08:59 03/31/17 08:29 12.5 MG Review of Systems Constitutional: + weakness, + fatigue Eyes: No worsening of vision, No diplopia ENT: No hearing loss, No tinnitus Respiratory: No cough, No shortness of breath Cardiovascular: No chest pain, No palpitations Abdomen: No pain, No nausea Musculoskeletal: + joint pain, No muscle pain Genitourinary - Male: + urinary retention, No dysuria, No urinary incontinence Neurologic: + memory loss, + weakness, + numbness/tingling, + balance problems , No vertigo Psychiatric: No depression symptoms, No anxiety Endocrine: + fatigue Hematologic / Lymphatic: No abnormal bleeding/bruising Integumentary: No rash Allergic / Immunologic: No hives Physical Exam Vital Signs (Past 24 Hrs): Date Time Temp Pulse Resp B/P (MAP) Pulse Ox O2 Delivery O2 Flow Rate FiO2 03/31/17 10:01 Room Air 03/31/17 07:55 36.8 61 20 164/84 (110) 95 Room Air 03/31/17 00:00 Room Air 03/30/17 23:40 36.5 83 16 165/70 (101) 94 Room Air 03/30/17 16:31 Room Air 03/30/17 15:50 36.8 74 20 117/72 (87) 95 Room Air Patient is right handed. The patient is awake and alert when aroused was sleepy otherwise. Speech is normal without aphasia or dysarthria. Mentation and thought processes are slow. He did not know the date, day, R months, but did know the year and the president. He did not know his age. He was confused with some short-term memory questions from the last couple of days. He was pleasant and cooperative otherwise within normal mood and affect. The discs are sharp with positive venous pulsations. There are no exudates, hemorrhages, or blood vessel changes seen. Pupils are 3mm bilaterally and reactive to light. Extraocular eye muscles are intact without nystagmus. Visual acuity and visual bean seem normal grossly to confrontation. There are no deficits to sensation of the face bilaterally. Corneal reflexes are positive bilaterally. Facial strength and symmetry is normal bilaterally. Hearing seems intact grossly to voice and finger rub. Palate moves well without asymmetry. There is normal sternocleidomastoid and trapezius strength bilaterally. Tongue is midline with good strength bilaterally. Neck is with full range of motion without discomfort. There are no cervical bruits. There are no cranial or ocular bruits. Heart is without murmur. Cervical, thoracic, and lumbar spine are nontender to palpation. Gait is is not tested but he could not sit up in bed with any support and fell right back. With outstretched arms there is no drift. There are no resting, postural, or action tremors. There is no ataxia with [id number] testing. There is reasonable facility in the hands. There are no abnormal involuntary movements noted. Motor strength is 5/5 diffusely in the arms bilaterally including deltoids, biceps, brachioradialis, wrist flexors and extensors, pit inspector, and intrinsic hand muscles. Motor strength is 5/5 diffusely in the legs bilaterally including hip flexors, quadriceps, hamstring, gastrocnemius, tibialis anterior, tibialis posterior, and peroneii muscles bilaterally. Toe extensors are normal and there is good bulk in the extensor digitorum brevis muscle bilaterally. The limbs have good tone without rigidity or spasticity, and there is no atrophy noted. Muscle bulk is normal, there is no tenderness, no myotonia noted to percussion, and no fasciculations seen. Sensory examination reveals decreased sensation to pin and touch distally in the feet bilaterally. Reflexes are 0/4 in the biceps, triceps, brachioradialis, quadriceps, and Achilles tendons bilaterally. Toes are downgoing with plantar stimulation bilaterally. Peripheral pulses are present and of normal quality distally in all four limbs. There is no peripheral edema noted. Laboratory Results Past 24 Hours: 03/31/17 10:36 Test 03/31/17 10:36 03/31/17 11:14 Anion Gap 10.0 mmol/L (3-11) Est Creatinine Clear Calc Drug Dose 47.0 ml/min Estimated GFR () 48.5 Estimated GFR (Non- 41.9 BUN/Creatinine Ratio 18.4 (10-20) Calcium Level 9.8 mg/dl (8.5-10.1) Bedside Glucose 221 mg/dl (70-99) Imaging MRI OF THE BRAIN WITHOUT CONTRAST CLINICAL HISTORY: left sided weakness FALLS, DIZZINESS. POSSIBLE STROKE. COMPARISON STUDY: None. FINDINGS: Sagittal T1, axial diffusion, proton density and T2 weighted axial, coronal FLAIR, and axial T1-weighted images were acquired. No intra or extra-axial mass lesions are visualized Axial diffusion-weighted images reveal no evidence of acute or subacute infarction. There is no evidence of ventricular dilatation. Proton density T2-weighted and FLAIR images reveal a small lacunar infarct within the left cerebellar hemisphere. There is a right basal ganglial lacunar infarct.. There are multiple foci of increased T2 and FLAIR signal within the white matter, likely on a small vessel basis. There are no abnormal flow voids. IMPRESSION: 1. No evidence of acute or subacute infarction 2. Old lacunar infarcts 3. Moderate white matter disease likely a small vessel basis 4. No evidence of intracranial mass on this noncontrast examination Electronically signed by: Brayan Gabriel M.D. 03/24/2017 9:19 PM Impression 1. Dementia. This patient likely has a significant vascular dementia. I see no need evidence for a significant delirium at this time. However, patients with this type of significant brain atrophy and small vessel ischemic changes as noted on MRI, any medical issue could create encephalopathy easily. He does not have any other obvious etiology for dementia. 2. Significant chronic cerebral ischemia with small vessel ischemic disease and old lacunar infarcts on MRI. He has marked generalized atrophy and does not have hydrocephalus. He has some mild hydrocephalus ex vacuo from the atrophy but nothing to suggest something like normal pressure hydrocephalus. Therefore this patient does not have anything suggestive of normal pressure hydrocephalus. 3. Gait disturbance. 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 This would give him a sensory ataxia. 4. Urinary issues. He is followed by urology and is urinary retention with benign prostatic hypertrophy and a mildly elevated PSA. He has no history of urinary incontinence that I can find. 5. Small vertebral and basilar arteries with probable stenosis and no carotid stenosis. This is likely chronic atherosclerotic/aging of these vessels. There would be stroke risk from this. Diabetes and hypertension will provide stroke risk as well. Plan 1. I do not see a need for additional testing at this time regarding his brain. If we wanted to look at his arteries more definitively, we could do CT angiography of the head and neck, but I'm not sure we change our treatment. In addition, he has elevated BUN/creatinine and I would not want to give him any CT contrast agent. 2.. See no indication for lumbar puncture or radio nucleotide cisternogram 3. Consider addition of 81 mg aspirin tablet daily, if no other contraindications. 4. Control glucose and blood pressure as best as possible. 5. Physical therapy and gait training. 6. We could consider EMG and nerve conduction studies of the legs (as an outpatient) to prove polyneuropathy but this will likely not change our treatment plan anyway. 7. Consider B-12 and folate levels. I'm not sure have anything further to offer this patient at this time. I spoke with Dr. Flowers regarding his case including differential diagnosis and treatment options.
--- NOTE | 2017-03-31 15:34 | Progress Note ---
Subjective Date of Service: Mar 31, 2017. Subjective Pt evaluation today including: conversation w/ patient, conversation w/ family (entire family at the bedside), physical exam, lab review, review of studies, conversation w/ documentation consultant, review of inpatient medication list Pain: no pain today PO Intake: adequate Voiding: incontinence patient had hays removed yesterday, has had urinary incontinence, urinating large amounts long talk with family at the bedside, was planning on discharging patient this AM sons discussed that his symptoms included urinary incontinence, dizziness, confusion brought up possibility of NPH, discussed with Dr. Morataya, he evaluated patient and MRI results, did not feel NPH was a possibility appreciate urology note, plan for cystoscopy on 04/[address] Willett recommend straight cath PRN if >250cc Problem List Medical Problems: (1) Change in mental status Status: Acute (2) Hypotension Status: Acute (3) Symptoms of urinary tract infection Status: Acute (4) UTI (urinary tract infection) Status: Acute Review of Systems Constitutional: + weakness, + fatigue Musculoskeletal: + joint pain Male : + incontinence Neurologic: + weakness, + vertigo All Other Systems: Reviewed and Negative Medications Current Inpatient Medications Medications (Trade) Dose Ordered Sig/Sulema Route Start Time Stop Time Status Last Admin Dose Admin Heparin Sodium (Porcine) (Heparin Sq 5000 Unit/0.5ml) 5,000 unit Q8 SQ 03/23/17 22:00 04/22/17 21:59 03/31/17 13:42 5,000 UNIT Acetaminophen (Tylenol Tab) 650 mg Q4H PRN PO 03/23/17 15:45 04/22/17 15:44 03/30/17 16:13 650 MG Al Hydrox/Mg Hydrox/Simethicone (Maalox Max Susp) 15 ml Q4H PRN PO 03/23/17 15:45 04/22/17 15:44 Magnesium Hydroxide (Milk Of Magnesia Susp) 30 ml Q12H PRN PO 03/23/17 15:45 04/22/17 15:44 Ondansetron HCl (Zofran Inj) 4 mg Q6H PRN IV 03/23/17 15:45 04/22/17 15:44 Polyethylene (Miralax Powder Packet) 17 gm DAILY PRN PO 03/23/17 15:45 04/22/17 15:44 Alfuzosin HCl (Uroxatral Tab) 10 mg DAILY PO 03/24/17 09:00 04/23/17 08:59 03/31/17 08:30 10 MG Chlordiazepoxide (Librium Cap) 5 mg TID PO 03/23/17 21:00 04/22/17 20:59 03/31/17 13:42 5 MG Clopidogrel Bisulfate (plAVix TAB) 75 mg DAILY PO 03/24/17 09:00 04/23/17 08:59 03/31/17 08:28 75 MG Isosorbide Mononitrate (Imdur Ext Rel Tab) 30 mg DAILY PO 03/24/17 09:00 04/23/17 08:59 03/31/17 08:28 30 MG Levothyroxine Sodium (Synthroid Tab) 150 mcg DAILYBB PO 03/24/17 06:30 04/23/17 06:59 03/31/17 05:52 150 MCG Metoprolol Tartrate (Lopressor Tab) 25 mg BID PO 03/23/17 21:00 04/22/17 20:59 03/31/17 08:28 25 MG Multivitamins/ Minerals (Multivitamin W/ Minerals Tab) 1 tab DAILY PO 03/24/17 09:00 04/23/17 08:59 03/31/17 08:30 1 TAB Rosuvastatin Calcium (Crestor Tab) 5 mg DAILY PO 03/24/17 09:00 04/23/17 08:59 03/31/17 08:30 5 MG Sertraline HCl (Zoloft Tab) 100 mg DAILY PO 03/24/17 09:00 04/23/17 08:59 03/31/17 08:30 100 MG Sucralfate (Carafate Tab) 1 gm TID PO 03/23/17 21:00 04/22/17 20:59 03/31/17 13:35 1 GM Pantoprazole Sodium (Protonix Tab) 40 mg QAM PO 03/24/17 09:00 04/23/17 08:59 03/31/17 08:30 40 MG Insulin Aspart (novoLOG ASPART) SLIDING SCALE G... ACHS SC 03/23/17 16:00 04/22/17 15:59 03/31/17 11:22 2 UNITS Glucose (Glucose 40% Gel) 15-30 GRAMS 15 GRAMS... UD PRN PO 03/23/17 16:00 04/22/17 15:59 Glucose (Glucose Chew Tab) 4-8 Tablets 4 Tabl... UD PRN PO 03/23/17 16:00 04/22/17 15:59 Dextrose (Dextrose 50% 50ML Syringe) 25-50ML OF 50% DW IV FOR... UD PRN IV 03/23/17 16:00 04/22/17 15:59 Glucagon (Glucagon Inj) 1 mg UD PRN SQ 03/23/17 16:00 04/22/17 15:59 Nystatin (Mycostatin Crm) 1 appln BID EXT 03/23/17 21:00 04/22/17 20:59 03/31/17 11:21 1 APPLN Nystatin (Mycostatin Susp) 5 ml QID PO 03/23/17 17:00 04/02/17 16:59 03/31/17 13:18 5 ML Lidocaine HCl (Xylocaine Jelly 2%) 2 ml PRN PRN EXT 03/24/17 08:00 04/23/17 07:59 03/25/17 07:55 2 ML Finasteride (Proscar Tab) 5 mg QAM PO 03/24/17 09:00 04/23/17 08:59 03/31/17 08:30 5 MG Lorazepam 0.5 mg/ Syringe 0.5 ml @ 0.5 mls/min ONE PRN IV 03/24/17 18:30 04/23/17 18:29 Cephalexin Monohydrate (Keflex Cap) 500 mg BIDM PO 03/25/17 17:00 04/02/17 16:59 03/31/17 08:30 500 MG Olmesartan (Benicar Tab) 20 mg DAILY PO 03/26/17 09:00 04/25/17 08:59 03/31/17 08:29 20 MG Hydrochlorothiazide (Hydrochlorothiazide Tab) 12.5 mg DAILY PO 03/26/17 09:00 04/25/17 08:59 03/31/17 08:29 12.5 MG Objective Vital Signs Date Time Temp Pulse Resp B/P (MAP) Pulse Ox O2 Delivery O2 Flow Rate FiO2 03/31/17 10:01 Room Air 03/31/17 07:55 36.8 61 20 164/84 (110) 95 Room Air 03/31/17 00:00 Room Air 03/30/17 23:40 36.5 83 16 165/70 (101) 94 Room Air 03/30/17 16:31 Room Air 03/30/17 15:50 36.8 74 20 117/72 (87) 95 Room Air Physical Exam General Appearance: no apparent distress, + obese Eyes: normal inspection, EOMI, sclerae normal ENT: normal ENT inspection, hearing grossly normal, pharynx normal Neck: supple, no adenopathy, no JVD, trachea midline Respiratory/Chest: chest non-tender, lungs clear, normal breath sounds, no respiratory distress, no accessory muscle use Cardiovascular: regular rate, rhythm, no edema, no gallop, no JVD, no murmur Abdomen: normal bowel sounds, non tender, soft, no organomegaly Extremities: normal range of motion, non-tender, normal inspection, no pedal edema, no calf tenderness Neurologic/Psychiatric: pasting inspector II-XII nml as tested, normal mood/affect, + abnormal gait, + motor weakness, + disoriented Skin: normal color, warm/dry, no rash Laboratory Results Last 24 Hours Test 03/30/17 16:27 03/30/17 20:07 03/31/17 07:40 03/31/17 10:36 Bedside Glucose 182 mg/dl 203 mg/dl 156 mg/dl Sodium Level 134 mmol/L Potassium Level 3.7 mmol/L Chloride Level 99 mmol/L Carbon Dioxide Level 25 mmol/L Anion Gap 10.0 mmol/L Blood Urea Nitrogen 28 mg/dl Creatinine 1.50 mg/dl Est Creatinine Clear Calc Drug Dose 47.0 ml/min Estimated GFR () 48.5 Estimated GFR (Non- 41.9 BUN/Creatinine Ratio 18.4 Random Glucose 231 mg/dl Calcium Level 9.8 mg/dl Test 03/31/17 11:14 Bedside Glucose 221 mg/dl Assessment and Plan 86 y/o male with a history of DM II, HTN, HLD, CKD stage III, hypothyroidism, BPH, anxiety and depression, and PUD who presented to the ED on 03/23 with weakness, confusion, and pain in the penis. Pt originally hypotensive on arrival which resolved after receiving a 500 cc fluid bolus. Pt afebrile, and VSS. WBC 15.71. Creatinine elevated above baseline at 2.00. Head CT, C-spine CT, CXR, humerus x-ray, hand/forearm x-ray all negative. Altered mental status, left sided weakness/falls, urinary incontinence - appreciate neurology consult, no signs of NPH -MRI brain without contrast neg for acute stroke -MRA head and neck with stenosis of b/l vertebral arteries, neg for sig carotid stenosis -Echo with EF 55-60%, neg for structural issues -Fasting lipid panel WNL -HgbA1c elevated at 7.6 -Continue Plavix, statin, beta zainab -PT/OT recs for rehab, plan for [facility] tomorrow - mental status is much improved Sepsis likely secondary to UTI in setting of Hays catheter, h/o urinary retention, balanitis -Hypotension resolved with fluid bolus -Urine and blood cultures neg -Empiric Rocephin 1 gm IV qd, tolerating switch to keflex, complete 14 days total -Nystatin cream to penis continued, less pain, skin clearing up -Urology consulted, appreciate recs, planning outpt cystoscopy on 04/11 - hays pulled 03/30, with incontinence now but urinating enough on Uroxatrol and Finasteride to treat prostate DAMIEN on CKD stage III - Cr was 2.0 on admission, improved with IV fluids that are now stopped - Benicar resumed - Cr is 1.5 today, adequate UO ?? 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 [employer]-- normal SURESH, PSA mildly elevated at 5.3 PSA elevated 03/18, planning to follow given BPH and retention MRI abd with benign renal lesions SPEP, UPEP, free light chains, and LDH - lambda/kappa ration normal, interpretation of electrophoresis = acute phase reaction, not consistent with MM Ca is WNL unclear etiology, will get repeat cysto on 04/11 Diabetes mellitus type 2--A1c 7.6 -Hold glipizide and Januvia while admitted -Insulin sliding scale -Check BSGs q ac and qhs -Check HgbA1c - 7.6 HTN-- stable, continue Benicar and Lopressor HLD -Continue Crestor 5 mg PO qd Hypothyroidism -Continue Synthroid 150 mcg PO qd BPH -Continue alfuzosin 10 mg PO qd Anxiety and depression -Continue Zoloft 100 mg PO qd and Librium 5 mg PO qhs DVT prophylaxis -Heparin 5000 units SC q8h -ZEB biggs and Payam Code Status -Level I, FULL RESUSCITATION STATUS will plan again for [facility] tomorrow Continued [facility] stay due to: voiding difficulties, ambulation difficulties
[2017-03-31 16:00] VITALS: O2SAT 95
[2017-03-31 16:01] VITALS: BP 125/66; PULSE 65; TEMP 37; O2SAT 99
[2017-03-31 23:30] VITALS: BP 144/77; PULSE 57; TEMP 36.4; O2SAT 96
[2017-04-01] MEDS: HEPARIN SOD 5000 UNIT/0.5 ML CARP SQ SCH ×2 (06:19→13:20)
[2017-04-01] MEDS: LEVOTHYROXINE 150 MCG TAB PO SCH (06:20)
[2017-04-01 06:38] LABS: HEMATOCRIT 34.1 % (42-52); MEAN CELL VOLUME 86.8 fL (80-100); MEAN CORPUSCULAR HEMOGLOBIN 29.8 pg (25-34); MEAN CORPUSCULAR HGB CONC 34.3 g/dl (32-36); MEAN PLATELET VOLUME 8.4 fL (7.4-10.4); PLATELET COUNT 342 K/uL (130-400); RED BLOOD COUNT 3.93 M/uL (4.7-6.1); WHITE BLOOD COUNT 11.71 K/uL (4.8-10.8)
[2017-04-01] MEDS: INSULIN ASPART 100 UNITS/ML 3 ML PEN SC SCH ×2 (08:07→12:43)
[2017-04-01] MEDS: OLMESARTAN MEDOXOMIL 20 MG TAB PO SCH (08:11)
[2017-04-01] MEDS: NYSTATIN CR 15 GM TUBE EXT SCH (08:11)
[2017-04-01] MEDS: CEPHALEXIN MONOHYDRATE 500 MG CAP PO SCH (08:11)
[2017-04-01] MEDS: HYDROCHLOROTHIAZIDE 25 MG TAB PO SCH (08:12)
[2017-04-01] MEDS: METOPROLOL TARTRATE 25 MG TAB PO SCH (08:12)
[2017-04-01] MEDS: ISOSORBIDE MONONITRATE 30 MG TABCR PO SCH (08:12)
[2017-04-01] MEDS: SERTRALINE HCL 100 MG TAB PO SCH (08:12)
[2017-04-01] MEDS: ROSUVASTATIN CALCIUM 5 MG TAB PO SCH (08:12)
[2017-04-01] MEDS: FINASTERIDE 5 MG TAB PO SCH (08:12)
[2017-04-01] MEDS: CEROVITE ADV FORMULA TAB PO SCH (08:12)
[2017-04-01] MEDS: NYSTATIN SUSP 500,000 U/5 ML UDC PO SCH ×2 (08:12→12:39)
[2017-04-01] MEDS: PANTOprazole SOD 40 MG TAB PO SCH (08:12)
[2017-04-01] MEDS: ALFUZosin TAB 10 MG TAB PO SCH (08:12)
[2017-04-01] MEDS: CLOPIDOGREL BISULFATE 75 MG TAB PO SCH (08:12)
[2017-04-01] MEDS: SUCRALFATE 1 GM TAB PO SCH ×2 (08:12→13:20)
[2017-04-01] MEDS ORDERED: KFL500 PO (08:14)
[2017-04-01] MEDS ORDERED: PRT40 PO (08:14)
[2017-04-01 08:17] VITALS: BP 135/75; PULSE 60; TEMP 36.8; O2SAT 96
[2017-04-01] MEDS: CHLORDIAZEPOXIDE 5 MG CAP PO SCH ×2 (08:17→13:21)
--- NOTE | 2017-04-01 08:57 | Discharge Instructions ---
Discharge Instructions Date of Service Apr 01, 2017. Admission Reason for Admission: Weakness, falls, urinary incontinence Discharge Discharge Diagnosis / Problem: UTI, urinary incontinence, balanitis, DM type II , vascular dementia Discharge Goals Goal(s): Improve function, Increase independence, Diagnostic testing ( cystoscopy on 04/11) Activity Recommendations Activity Level: Assistance Required Therapies: Physical Therapy, Occupational Therapy Lifting Limitations: none Exercise/Sports Limitations: as tolerated Shower/Bathe: no limitations . Additional Information Patient informed of condition: Yes Advance Directives: Yes DNR: No Level of Care: Skilled (with rehab) Communicable Disease: No Prognosis: Stable Oxygen at (LPM): no [place] Catheter: No Instructions / Follow-Up Instructions / Follow-Up Medications: - KEFLEX: take twice a day for 5 more days (11 capsules given, start tonight), treating UTI - PROTONIX: new medications, stopped omeprazole due to potential interaction with Plavix - NYSTATIN CREAM: apply to penis as directed, treating balanitis Urinary incontinence, UTI, elevated PSA at 5.3, normal SURESH: treating UTI with Keflex, urology would like to perform a cystoscopy on 04/[address] Willett, already scheduled Lytic lesions seen in lumbar spine and iliac crests: PSA 5.3 and normal SURESH, urology does NOT feel that this is prostate CA calcium level normal SPEP and UPEP did not raise the possibility of multiple myeloma, suggested an acute inflammatory response Chest x-ray normal, no evidence of lung tumor lesion seen on CT on left kidney, MRI of the kidney showed that lesion was benign follow up with PCP after follow up with urology on 04/11, could always consider a biopsy but question whether patient would want this Dizziness, memory issues: evaluated by neurology, felt that he has vascular dementia and balance issues multifactorial with neuropathy and prior ischemic stroke in posterior circulation with urinary incontinence, dizziness and confusion, NPH was considered but ventricles normal on MRI, neurology did not feel this was a possibility continue to work with PT/OT DM type II: HbA1c 7.6, close to goal of 7.5 in an 86 yo male, continue outpatient regimen FOLLOW UP - physician at [facility] this week - Dr. Willett on 04/11 for cystoscopy, discussion of whether lesions could be related to prostate - PCP (Dr. Barber) after discharged from [facility] Diet Patient's current hospital diet: Diabetes Type 2 Diet, AHA Diet (Heart Healthy) Discharge Diet Recommended Diet: AHA Diet (Heart Healthy), Diabetes Type 2 Diet Pending Studies Studies pending at discharge: no Physician Orders On Transfer POLST Discussion: Not Applicable Laboratory Results Hemoglobin A1c Test 03/23/17 12:30 Range/Units Estimated Average Glucose 171 mg/dl Hemoglobin A1c 7.6 H 4.5-5.6 % Lipid Panel Test 03/24/17 05:47 Range/Units Triglycerides Level 108 0-150 mg/dl Cholesterol Level 130 0-200 mg/dl HDL Cholesterol 43 mg/dl Cholesterol/HDL Ratio 3.0 LDL Cholesterol, Calculated 65 mg/dl Medical Emergencies . Who to Call and When: Medical Emergencies: If at any time you feel your situation is an emergency, please call 911 immediately. . Non-Emergent Contact Non-Emergency issues call your: Primary Care Provider Call Non-Emergent contact if: you have a fever, your pain is not controlled, you have any medication questions . . "Provider Documentation" section prepared by Steve Flowers. . Core Measure Problem Core Measures: None [place] Drug Monitoring Program Search Results: no issues identified
[2017-04-01 09:42] VITALS: BP 135/75; PULSE 60; TEMP 36.8; O2SAT 96
--- NOTE | 2017-04-01 13:12 | Discharge Summary ---
Discharge Summary Date of Service Apr 01, 2017. Discharge Summary Admission Date: Mar 23, 2017 at 15:46 Discharge Date: Apr 01, 2017 Discharge Disposition: intermediate facility Principal Diagnosis: Weakness, dizziness, falls Problems/Secondary Diagnoses: UTI Urinary incontinence Memory loss, vascular dementia DM type II DAMIEN on CKD resolved Lytic lesion in lumbar spine and iliac crest Immunizations: Have You Had Influenza Vaccine: No History of Tetanus Vaccine?: No History of Pneumococcal: No History of Hepatitis B Vaccine: Unknown Procedures: none Consultations: Urology Neurology Medication Reconciliation New Medications: Cephalexin Monohydrate (Cephalexin) 500 Mg Cap 500 MG PO BIDM, #11 CAP 0 Refills Pantoprazole (Pantoprazole Sodium) 40 Mg Tab 40 MG PO QAM, #30 TAB 3 Refills Continued Medications: Alfuzosin HCl (Uroxatral) 10 Mg Tab 10 MG PO DAILY Ascorbic Acid (Vitamin C) Unknown Strength Tab 1 TAB PO DAILY Cetirizine (Zyrtec) Unknown Strength Tab 1 TAB PO DAILY Chlordiazepoxide (Librium) 5 Mg Cap 5 MG PO TID PATIENT'S SAYS HE ONLY TAKES THIS ONCE A DAY, BUT IS SUPPOSED TO TAKE IT 3 TIMES DAILY. Clopidogrel (Plavix) 75 Mg Tab 75 MG PO DAILY Glipizide (Glipizide) 10 Mg Tab 10 MG PO BID Isosorbide Mononitrate (Isosorbide Mononitrate ER) 30 Mg Tabcr 30 MG PO DAILY Levothyroxine Sodium (Levothyroxine Sodium) 150 Mcg Tab 150 MCG PO DAILY Metoprolol Tartrate (Lopressor) (Lopressor) 50 Mg Tab 25 MG PO BID 1/2 OF A 50 MG TABLET TWICE DAILY. Multiple Vitamins W/ Minerals (Centrum Silver 50+Men) 1 Tab Tab 1 TAB PO DAILY CENTRUM SILVER Nystatin (Nystatin Cream) 90 Appln/30 Gm Cr 1 APPLN EXT BID, #15 GM APPLY TO AFFECTED AREA BID Olmesartan/Hctz (Benicar Hct 20/12.5) Tab 1 TAB PO DAILY Rosuvastatin Calcium (Rosuvastatin Calcium) 5 Mg Tab 5 MG PO DAILY Sertraline (Zoloft) 100 Mg Tab 100 MG PO DAILY Sitagliptin Phosphate (Januvia) 100 Mg Tab 100 MG PO DAILY Sucralfate (Carafate) 1 Gm Tab 1 GM PO TID MEALS Discontinued Medications: Esomeprazole Magnesium (Nexium) 40 Mg Capcr 40 MG PO DAILY Discharge Exam Patient feeling well today, still urinating without need for hays catheter. Appreciate work up from neurology yesterday, no signs of NPH, symptoms combination of neuropathy and vascular dementia. Review of Systems: Constitutional: + weakness, + fatigue, No fever, No chills, No sweats, No weight loss, No problem reported Eyes: No worsening of vision, No eye pain, No redness, No discharge, No diplopia, No problem reported ENT: No hearing loss, No unusual epistaxis, No nasal symptoms, No sore throat, No tinnitus, No dental problems, No trouble swallowing, No problem reported Respiratory: No cough, No sputum, No wheezing, No shortness of breath, No dyspnea on exertion, No dyspnea at rest, No hemoptysis, No problem reported Cardiovascular: No chest pain, No orthopnea, No PND, No edema, No claudication, No palpitations, No problem reported Abdomen: No pain, No nausea, No vomiting, No diarrhea, No constipation, No GI bleeding, No problem reported Musculoskeletal: + joint pain (left elbow and shoulder) Genitourinary - Male: + urinary urgency, + urinary incontinence, No hematuria, No dysuria, No urinary frequency, No urinary hesitancy, No urinary retention Neurologic: + memory loss, + weakness, + balance problems, No paralysis, No numbness/tingling, No vertigo Psychiatric: No depression symptoms, No anhedonism, No anxiety, No insomnia , No substance abuse, No problem reported Endocrine: No fatigue, No excessive thirst, No excessive urination, No problem reported Hematologic / Lymphatic: No abnormal bleeding/bruising, No clotting problems , No swollen lymph nodes, No night sweats, No problem reported Integumentary: No rash, No itch, No new/changing skin lesions, No color change, No bleeding, No problem reported Physical Exam: General Appearance: no apparent distress, + obese Eyes: normal inspection, EOMI, sclerae normal ENT: normal ENT inspection, hearing grossly normal, pharynx normal Neck: supple, no adenopathy, no JVD, trachea midline Respiratory/Chest: chest non-tender, lungs clear, normal breath sounds, no respiratory distress, no accessory muscle use Cardiovascular: regular rate, rhythm, no edema, no gallop, no JVD, no murmur , normal peripheral pulses Abdomen / GI: normal bowel sounds, non tender, soft, no organomegaly Extremities: normal inspection, no calf tenderness, normal capillary refill , no pedal edema, normal range of motion Neurologic/Psychiatric: reception II-XII nml as tested, no motor/sensory deficits , alert, normal mood/affect, normal reflexes, oriented x 3, + abnormal gait ( off balance) Skin: normal color, warm/dry, no rash Lymphatic: no adenopathy Hospital Course 86 y/o male with a history of DM II, HTN, HLD, CKD stage III, hypothyroidism, BPH, anxiety and depression, and PUD who presented to the ED on 03/23 with weakness, confusion, and pain in the penis. Pt originally hypotensive on arrival which resolved after receiving a 500 cc fluid bolus. Pt afebrile, and VSS. WBC 15.71. Creatinine elevated above baseline at 2.00. Head CT, C-spine CT, CXR, humerus x-ray, hand/forearm x-ray all negative. Altered mental status, left sided weakness/falls, urinary incontinence - appreciate neurology consult, no signs of NPH -MRI brain without contrast neg for acute stroke -MRA head and neck with stenosis of b/l vertebral arteries, neg for sig carotid stenosis -Echo with EF 55-60%, neg for structural issues -Fasting lipid panel WNL -HgbA1c close to goal at 7.6 -Continue Plavix, statin, beta zainab -PT/OT recs for rehab, plan for [facility] today - mental status is much improved since admission in summary, his symptoms of weakness, poor balance, memory issues are multifactorial neurology feels that he has vascular dementia he also has neuropathy from diabetes continue to work on balance and strength via physical and occupational therapy Sepsis likely secondary to UTI in setting of Hays catheter, h/o urinary retention, balanitis -Hypotension resolved with fluid bolus -Urine and blood cultures neg -Empiric Rocephin 1 gm IV initially, tolerating switch to keflex, complete 14 days total which will be done 04/06 -Nystatin cream to penis continued, less pain, skin clearing up -Urology consulted, appreciate recs, planning outpt cystoscopy on 04/11 - hays pulled 03/30, with incontinence now but urinating enough on Uroxatrol and Finasteride to treat prostate DAMIEN on CKD stage III - Cr was 2.0 on admission, improved with IV fluids that are now stopped - Benicar resumed - Cr is 1.5, making adequate urine ?? lytic lesions: discussed with urology-- normal SURESH, PSA mildly elevated at 5.3 PSA elevated 03/18, planning to follow given BPH and retention but doubt lesions are metastatic prostate cancer MRI abd with benign renal lesions SPEP, UPEP, free light chains, and LDH - lambda/kappa ration normal, interpretation of electrophoresis = acute phase reaction, not consistent with MM Ca is WNL unclear etiology, will get repeat cysto on 04/11 can refer to oncology as outpatient, could ultimately consider biopsy of a lesion, but want to adequately treat UTI, obtain cystoscopy first Diabetes mellitus type 2--A1c 7.6 which is close to goal of 7.5, continue to follow low carb diet and oral medications -continue glipizide and Januvia on discharge -Insulin sliding scale while admitted HTN-- stable, continue Benicar and Lopressor HLD -Continue Crestor 5 mg PO qd Hypothyroidism -Continue Synthroid 150 mcg PO qd BPH -Continue alfuzosin 10 mg PO qd Anxiety and depression -Continue Zoloft 100 mg PO qd and Librium 5 mg PO qhs DVT prophylaxis -Heparin 5000 units SC q8h -ZEB biggs and SCDs Code Status -Level I, FULL RESUSCITATION STATUS d/c to [facility] today, specific instructions for follow up and plan for work up given Total Time Spent: Greater than 30 minutes This includes examination of the patient, discharge planning, medication reconciliation, and communication with other providers. Discharge Instructions Please refer to the electronic Patient Visit Report (Discharge Instructions) for additional information. Follow-Up Physician at [facility] this week Urology (Dr. Willett) on 04/[address] Barber in two weeks for hospital follow up Additional Copies To [facility]; Will Barber M.D.; Noah Willett M.D.
--- NOTE | 2017-04-04 09:35 | EDITING REQUIRED CODING QUERY ---
xCODING QUERY To promote full compliance with coding requirements relating to patient care, provider participation is requested in all cases of inclusion special educator uncertainty. Please assist us with the question(s) below: Coding Question(s): Patient presents to the ED with weakness, confusion- & stroke symptoms. Stroke ruled out. Discharge Summary states " Sepsis secondary to UTI in the setting of Hays catheter". Please document if known or suspected, the etiology of the UTI. Thank you! Shravan Callejas [facility] Physician's Response(s): UTI was suspected to be due to hays catheter Principal Diagnosis: "_that condition established after study, to be chiefly responsible for occasioning the admission of the patient to the hospital for care." Co-Existing Principal Diagnosis: "_when two or more diagnoses equally meet the criteria for principal diagnosis as determined by the circumstances of admission, diagnostic work up, and/or therapy provided, and the Alphabetic Index, Tabular List, or another coding guideline does not provide sequencing direction, any one of the diagnoses may be sequenced first." "When the physician has documented what appears to be a current diagnosis in the body of the record, but has not included the diagnosis in the final diagnostic statement, the physician should be asked whether the diagnosis should be added." (Source Coding [facility] 2 QTR90. p3-4)
== END 2017-04-01 14:25 | DRG 698 ==
LOC: C.EDB 12:10 → C.MED 15:46 → ENRESERV 16:04
PROVIDERS: ADMIT Hospitalist; ATTEND Internal Medicine
DX: T83.511A Infection and inflammatory reaction due to indwelling urethral catheter, initial encounter (principal); A41.9 Sepsis, unspecified organism; N17.9 Acute kidney failure, unspecified; E66.2 Morbid (severe) obesity with alveolar hypoventilation; R65.20 Severe sepsis without septic shock; R47.81 Slurred speech; F01.50 Vascular dementia, unspecified severity, without behavioral disturbance, psychotic disturbance, mood disturbance, and anxiety; N39.0 Urinary tract infection, site not specified; R26.2 Difficulty in walking, not elsewhere classified; N40.1 Benign prostatic hyperplasia with lower urinary tract symptoms; N18.3 Chronic kidney disease, stage 3 (moderate); E03.9 Hypothyroidism, unspecified; F41.8 Other specified anxiety disorders; Z83.3 Family history of diabetes mellitus; I12.9 Hypertensive chronic kidney disease with stage 1 through stage 4 chronic kidney disease, or unspecified chronic kidney disease; R32 Unspecified urinary incontinence; N18.9 Chronic kidney disease, unspecified; M89.9 Disorder of bone, unspecified; N48.1 Balanitis; E11.40 Type 2 diabetes mellitus with diabetic neuropathy, unspecified; Y92.129 Unspecified place in nursing home as the place of occurrence of the external cause; Y84.6 Urinary catheterization as the cause of abnormal reaction of the patient, or of later complication, without mention of misadventure at the time of the procedure